=== PATIENT | female | born 1965 | race Caucasian/White ===

== ENCOUNTER 2022-10-29 09:17 | Outpatient (OUT) | payer OTHER, SELFPAY ==
--- NOTE | 2022-10-29 09:26 | MM_ITS ---
Patient: ROBERTO YAN Exam Date: 10/29/2022 : 1965 Gender:F Ordering : Non-Staff Physician Admission #: [id number] Family : GIO SimonIban FIONA Order #: [id number] CLICK HERE TO VIEW EXAM RADIOLOGY REPORT PROCEDURE: MM TOMOSYNTHESIS SCREENING BI COMPARISON: MG MAMM SCREEN 3D OFE CAD, 10/25/2020. MG MAMM SCREEN 3D OFE CAD, 10/28/2021. INDICATIONS: SCREENING MAMMOGRAM Calculator Name NCI Breast Cancer Risk Assessment Tool 5 Year Breast Cancer Risk 1.40% Lifetime Breast Cancer Risk 7.80% Personal Breast Cancer No Personal Ovarian Cancer No Treatments None Family Cancers Mother with ovarian cancer at age 58; Grandmother-maternal with ovarian cancer at age ~48; Aunt-maternal with ovarian cancer at age ~50. LOCATION: [facility] BREAST COMPOSITION: Heterogeneously dense,which may obscure small masses. FINDINGS: DIAGNOSTIC CATEGORY 0--INCOMPLETE: NEED ADDITIONAL IMAGING EVALUATION. The breasts are stable in size and overall fibroglandular configuration. Scattered benign-appearing lymph nodes are present. Scattered benign-appearing calcifications are present. RIGHT BREAST: New 1.3 x 1.1 cm irregular focal asymmetry upper-outer quadrant mid to posterior breast. Spot imaging and ultrasound follow-up is required LEFT BREAST: No significant suspicious finding. RECOMMENDATIONS: ADDITIONAL MAMMOGRAPHIC VIEWS REQUIRED: RIGHT BREAST - spot compression ULTRASOUND: RIGHT BREAST PLEASE NOTE: A NORMAL MAMMOGRAM DOES NOT EXCLUDE THE POSSIBILITY OF BREAST CANCER. A CLINICALLY SUSPICIOUS PALPABLE LUMP SHOULD BE BIOPSIED. Dictated by: Roel Araujo MD on 10/29/2022 at 12:38 Approved by: Roel Araujo MD on 10/29/2022 at 12:41
== END 2022-10-29 09:18 | disposition home or self-care (01) ==
LOC: MAMMO 09:20
PROVIDERS: PCP Internal Medicine
DX: Z12.31 Encounter for screening mammogram for malignant neoplasm of breast (principal); Z80.41 Family history of malignant neoplasm of ovary; R92.8 Other abnormal and inconclusive findings on diagnostic imaging of breast
CPT/HCPCS: 77063; 77067

== ENCOUNTER 2022-11-05 09:06 | Outpatient (OUT) | payer OTHER, SELFPAY ==
--- NOTE | 2022-11-05 09:13 | US_ITS ---
Patient: ROBERTO YAN Exam Date: 11/05/2022 : 1965 Gender:F Ordering : NON-STAFF PHYSICIAN Admission #: [id number] Family : MIKAYLA CARVAJAL Order #: [id number] CLICK HERE TO VIEW EXAM RADIOLOGY REPORT PROCEDURE: MM DIAGNOSTIC MAMMO UNILAT RT, 11/05/2022, 09:01 US BREAST RT LIMITED, 11/05/2022, 09:44 COMPARISON: MM TOMOSYNTHESIS SCREENING BI, 10/29/2022. MG MAMM SCREEN 3D OFE CAD, 10/28/2021. MG MAMM SCREEN 3D OFE CAD, 10/25/2020. MG MAMM SCREEN OFE W CAD, 10/20/2019. INDICATIONS: Abnormal Mammogram R92.8 Calculator Name NCI Breast Cancer Risk Assessment Tool 5 Year Breast Cancer Risk 1.40% Lifetime Breast Cancer Risk 7.80% Personal Breast Cancer No Personal Ovarian Cancer No Treatments None Family Cancers Mother with ovarian cancer at age 58; Grandmother-maternal with ovarian cancer at age ~48; Aunt-maternal with ovarian cancer at age ~50. LOCATION: [facility] BREAST COMPOSITION: Heterogeneously dense,which may obscure small masses. FINDINGS: DIAGNOSTIC CATEGORY 3--PROBABLY BENIGN FINDING. THE FOLLOWING FINDING(S) HAS A HIGH PROBABILITY OF A BENIGN ETIOLOGY: RIGHT BREAST: Spot magnification views demonstrate persistence small nodules within posterior upper-outer quadrant. Ultrasound evaluation demonstrates small benign-appearing cysts. Follow-up diagnostic mammography and ultrasound of right breast in 6 months is recommended to document stability. RECOMMENDATIONS: SHORT TERM FOLLOW-UP DIAGNOSTIC MAMMOGRAM RIGHT BREAST IN 6 MONTHS. SHORT TERM FOLLOW-UP ULTRASOUND RIGHT BREAST IN 6 MONTHS. PLEASE NOTE: A NORMAL MAMMOGRAM DOES NOT EXCLUDE THE POSSIBILITY OF BREAST CANCER. A CLINICALLY SUSPICIOUS PALPABLE LUMP SHOULD BE BIOPSIED. Dictated by: Narendra Bautista M.D. on 11/06/2022 at 12:48 Approved by: Narendra Bautista M.D. on 11/06/2022 at 12:51
--- NOTE | 2022-11-05 09:49 | MM_ITS ---
Patient: ROBERTO YAN Exam Date: 11/05/2022 : 1965 Gender:F Ordering : NON-STAFF PHYSICIAN Admission #: [id number] Family : MIKAYLA CARVAJAL Order #: [id number] CLICK HERE TO VIEW EXAM RADIOLOGY REPORT PROCEDURE: MM DIAGNOSTIC MAMMO UNILAT RT, 11/05/2022, 09:01 US BREAST RT LIMITED, 11/05/2022, 09:44 COMPARISON: MM TOMOSYNTHESIS SCREENING BI, 10/29/2022. MG MAMM SCREEN 3D OFE CAD, 10/28/2021. MG MAMM SCREEN 3D OFE CAD, 10/25/2020. MG MAMM SCREEN OFE W CAD, 10/20/2019. INDICATIONS: Abnormal Mammogram R92.8 Calculator Name NCI Breast Cancer Risk Assessment Tool 5 Year Breast Cancer Risk 1.40% Lifetime Breast Cancer Risk 7.80% Personal Breast Cancer No Personal Ovarian Cancer No Treatments None Family Cancers Mother with ovarian cancer at age 58; Grandmother-maternal with ovarian cancer at age ~48; Aunt-maternal with ovarian cancer at age ~50. LOCATION: [facility] BREAST COMPOSITION: Heterogeneously dense,which may obscure small masses. FINDINGS: DIAGNOSTIC CATEGORY 3--PROBABLY BENIGN FINDING. THE FOLLOWING FINDING(S) HAS A HIGH PROBABILITY OF A BENIGN ETIOLOGY: RIGHT BREAST: Spot magnification views demonstrate persistence small nodules within posterior upper-outer quadrant. Ultrasound evaluation demonstrates small benign-appearing cysts. Follow-up diagnostic mammography and ultrasound of right breast in 6 months is recommended to document stability. RECOMMENDATIONS: SHORT TERM FOLLOW-UP DIAGNOSTIC MAMMOGRAM RIGHT BREAST IN 6 MONTHS. SHORT TERM FOLLOW-UP ULTRASOUND RIGHT BREAST IN 6 MONTHS. PLEASE NOTE: A NORMAL MAMMOGRAM DOES NOT EXCLUDE THE POSSIBILITY OF BREAST CANCER. A CLINICALLY SUSPICIOUS PALPABLE LUMP SHOULD BE BIOPSIED. Dictated by: Narendra Bautista M.D. on 11/06/2022 at 12:48 Approved by: Narendra Bautista M.D. on 11/06/2022 at 12:51
== END 2022-11-05 09:07 | disposition home or self-care (01) ==
LOC: MAMMO 09:07
PROVIDERS: PCP Internal Medicine
DX: R92.8 Other abnormal and inconclusive findings on diagnostic imaging of breast (principal); N60.11 Diffuse cystic mastopathy of right breast
CPT/HCPCS: 76642; 77065

== ENCOUNTER 2023-06-09 09:16 | Outpatient (OUT) | payer OTHER, SELFPAY ==
[2023-06-09 10:41] LABS: Estimated Average Glucose 140 mg/dL; Glycohemoglobin A1C 6.5 % (4.5-6.2)
[2023-06-09 11:03] LABS: Chol HDL Ratio 3.6; Cholesterol 164 mg/dL (<=200); HDL Cholesterol 46 mg/dL (40-60); Triglycerides 157 mg/dL (<=150); VLDL CHOLESTEROL 31.4 mg/dL
== END 2023-06-09 09:17 | disposition home or self-care (01) ==
LOC: LAB 09:18
PROVIDERS: PCP Internal Medicine; Visit Provider Internal Medicine
DX: Z00.00 Encounter for general adult medical examination without abnormal findings (principal)
CPT/HCPCS: 36415; 80061; 83036

== ENCOUNTER 2023-10-26 10:18 | Outpatient (OUT) | payer OTHER, SELFPAY ==
--- NOTE | 2023-10-26 | MM_ITS ---
Patient Name: ROBERTO YAN MR#: [id number] : 1965 Exam Date: 10/26/2023 Ordering Doctor: DR GIO JAIMES RADIOLOGY REPORT PROCEDURE: MM TOMOSYNTHESIS SCREENING BI COMPARISON: MM DIAGNOSTIC MAMMO UNILAT RT, 11/05/2022. MM TOMOSYNTHESIS SCREENING BI, 10/29/2022. INDICATIONS: Screening for malignant neoplasm of breast Z12.31 Calculator Name NCI Breast Cancer Risk Assessment Tool 5 Year Breast Cancer Risk 1.40% Lifetime Breast Cancer Risk 7.60% Personal Breast Cancer No Personal Ovarian Cancer No Treatments None Family Cancers Mother with ovarian cancer at age 58; Grandmother-maternal with ovarian cancer at age ~48; Aunt-maternal with ovarian cancer at age ~50. LOCATION: [facility] BREAST COMPOSITION: The breasts are heterogeneously dense,which may obscure small masses. FINDINGS: DIAGNOSTIC CATEGORY 2--BENIGN FINDING. NO CHANGE FROM COMPARISON. Scattered benign-appearing nodules are present. Scattered benign-appearing calcifications are present. Scattered benign-appearing lymph nodes are present. RIGHT BREAST: No significant suspicious finding. LEFT BREAST: No significant suspicious finding. RECOMMENDATIONS: ROUTINE MAMMOGRAM AND CLINICAL EVALUATION IN 12 MONTHS. PLEASE NOTE: A NORMAL MAMMOGRAM DOES NOT EXCLUDE THE POSSIBILITY OF BREAST CANCER. A CLINICALLY SUSPICIOUS PALPABLE LUMP SHOULD BE BIOPSIED. Dictated by: Roel Araujo MD on 10/26/2023 at 11:42 Approved by: Roel Araujo MD on 10/26/2023 at 11:43
== END 2023-10-26 10:19 | disposition home or self-care (01) ==
LOC: MAMMO 10:18
PROVIDERS: PCP Internal Medicine; Visit Provider Internal Medicine
DX: Z12.31 Encounter for screening mammogram for malignant neoplasm of breast (principal); Z80.41 Family history of malignant neoplasm of ovary
CPT/HCPCS: 77063; 77067

== ENCOUNTER 2023-10-27 09:58 | Outpatient (RCR) | payer OTHER, SELFPAY ==
[2023-10-27 11:01] LABS: Basophils Absolute Auto 0.1 10^3/uL (0.0-0.1); Basophils Percent Auto 1.1 % (0.2-2.0); Eosinophils Absolute Auto 0.2 10^3/uL (0.0-0.7); Eosinophils Percent Auto 2.4 % (0.9-7.0); Hemoglobin 13.5 g/dL (12.0-16.0); Immature Granulocytes Abs Auto 0.01 10^3/uL (0.00-0.03); Immature Granulocytes Pct Auto 0.1 % (0.0-0.5); Lymphocytes Absolute Auto 2.5 10^3/uL (1.2-3.8); Lymphocytes Percent Auto 35.7 % (20.5-60.0); Mean Corpuscular HGB Conc 32.1 g/dL (29.9-35.2); Mean Corpuscular Hemoglobin 29.6 pg (26.7-34.0); Mean Corpuscular Volume 92.1 fL (81.0-99.0); Mean Platelet Volume 10.1 fL (9.5-13.5); Monocytes Absolute Auto 0.5 10^3/uL (0.3-0.8); Monocytes Percent Auto 6.4 % (1.7-12.0); Neutrophils Absolute Auto 3.8 10^3/uL (1.4-6.5); Neutrophils Percent Auto 54.3 % (43.0-75.0); Platelet Count 232 10^3/uL (150-450); Red Blood Count 4.56 10^6/uL (4.20-5.40); Red Cell Distribution Width 12.9 % (11.0-15.0); White Blood Count 7.1 10^3/uL (4.0-11.0)
[2023-10-27 11:22] LABS: Alanine Aminotransferase 37 U/L (14-59); Albumin Globulin Ratio 0.7; Albumin Level 3.7 g/dL (3.4-5.0); Alkaline Phosphatase 73 U/L (46-116); Anion Gap 13.4; Aspartate Amino Transferase 23 U/L (15-37); BUN Creatinine Ratio 14.1; Bilirubin Total 0.5 mg/dL (0.2-1.0); Calcium 8.9 mg/dL (8.5-10.1); Carbon Dioxide 29.5 mmol/L (21.0-32.0); Chloride 99 mmol/L (98-107); Estimated GFR (African America >60 (>=60); Estimated GFR (Non-African Ame >60 (>=60); Globulin 5.2 g/dL; Glucose 120 mg/dL (74-106); Lactate Dehydrogenase 164 U/L (81-234); Potassium 3.9 mmol/L (3.5-5.1); Sodium 138 mmol/L (136-145); Total Protein 8.9 g/dL (6.4-8.2)
[2023-10-28 16:10] LABS: Albumin 3.8 g/dL (2.9-4.4); Alpha-1-Globulin 0.3 g/dL (0.0-0.4); Alpha-2-Globulin 0.9 g/dL (0.4-1.0); Free Kappa Lt Chains,S 10.7 mg/L (3.3-19.4); Free Lambda Lt Chains,S 6.6 mg/L (5.7-26.3); Gamma Globulin 2.3 g/dL (0.4-1.8); Immunoglobulin A, Qn, Serum 59 mg/dL (87-352); Immunoglobulin G, Qn, Serum 2515 mg/dL (586-1602); Immunoglobulin M, Qn, Serum 28 mg/dL (26-217); Kappa/Lambda Ratio,S 1.62 (0.26-1.65); Protein, Total 8.3 g/dL (6.0-8.5)
[2023-10-30 15:10] LABS: Immunoglobulin E, Total 37 IU/mL (6-495)
== END 2023-10-28 10:21 | disposition home or self-care (01) ==
LOC: HEMC 09:58
PROVIDERS: PCP Internal Medicine; Visit Provider Internal Medicine Hematology & Oncology
DX: C90.00 Multiple myeloma not having achieved remission (principal)
CPT/HCPCS: 36415; 80053; 82784; 82785; 83521; 83615; 84155; 84165; 85025; G0463

== ENCOUNTER 2024-02-29 08:18 | Outpatient (OUT) | payer OTHER, SELFPAY ==
--- OUTSIDE RECORDS SUMMARY | 2024-02-29 08:24 | XMS_ITS | CCD ---
Author Organization [facility] Care Team Providers Care Supervisor Road Administrator Name Role Phone Gio Jaimes Primary Care Provider Dylan BURCH, Dylan Unavailable Ruben AUTOMATION TEST ENGINEER.PAULIE, Courtney Unavailable Bello LOCKWOOD, Bertha Unavailable HIESTAND, DR GIO Simon Consulting Unavailable BENITO, DR GIO Quiroz Admitting Unavailable BENITO, DR GIO Quiroz Attending Unavailable WESKAN, DR LESLYE Calvert Consulting Unavailable HIESTAND, DR GIO Simon Admitting Unavailable HIESTAND, DR GIO Simon Primary Care Unavailable HIESTAND, DR GIO Simon Attending Unavailable HIESTAND, DR GIO Simon Consulting Unavailable Gio Jaimes Primary Care Provider Dylan BURCH, Dylan Unavailable [phone] Ruben AUTOMATION TEST ENGINEER.FIRE INVESTIGATION MANAGER, Courtney Unavailable Bello LOCKWOOD, Bertha Unavailable Gio Jaimes Primary Care Provider Gio Jaimes MD Primary Care Provider GIO JAIMES Attending Unavailable GIO JAIMES Referring Unavailable GIO JAIMES Primary Care Unavailable DYLAN GATES Referring Unavailable GIO JAIMES Primary Care UnavailDYLAN Marsh Referring Unavailable DARIOESTGENET, GIO ROSALES Primary Care UnavailDYLAN Marsh Attending Unavailable GIO JAIMES Primary Care Unavailabl e HIESTGENET, GIO ROSALES Primary Care Unavailabl e DYLAN GATES Referring Unavailable DARIOESTGENET, GIO ROSALES Primary Care Unavailabl e DYLAN GATES Attending Unavailable AUDREY CARDENAS Attending Unavailable HIESTAND, GIO Referring Unavailable GIO JAIMES Primary Care Unavailable Medications Current Medications Medication Drug Class(es) Dates Sig (Normalized) Sig (Original) amLODIPine 2.5 mg oral tablet (4 sources) Dihydropyridine Calcium Channel Jamel Start: 06-05-2023 End: 08-04-2023 take 1 tablet by mouth in the morning amLODIPine (NORVASC) 2.5 mg tablet Indications: Primary hypertension Take 1 tablet (2.5 mg total) by mouth in the morning. 90 tablet 2 08/04/2023 Active Start: 05-01-2023 take 1 tablet by nicholas th in the morning amLODIPine (NORVASC) 2.5 mg tablet Indications: Primary hypertension Take 1 tablet (2.5 mg total) by mouth in the morning. 30 tablet 1 05/01/2023 Active Start: 04-06-2023 End: 05-01-2023 take 1 tablet by mouth in the morning amLODIPine (NORVASC) 2.5 mg tablet Indications: Primary hypertension Take 1 tablet (2.5 mg total) by mouth in the morning. 30 tablet 0 04/06/2023 05/01/2023 Discontinued (Reorder) b complex vitamins capsule (2 sources) take 1 capsule by mouth in the morning b complex vitamins capsule Take 1 capsule by mouth in the morning. 0 Active Doxylamine (1 source) doxylamine succi luis (UNISOM, DOXYLAMINE, ORAL) Take by mouth. 0 Active losartan potassium 50 mg oral tablet (7 sources) Angiotensin 2 Receptor Jamel Start: 4 End: 4 take 1 tablet by mouth in the morning losartan (COZAAR) 50 mg tablet Indications: Primary hypertension Take 1 tablet (50 mg total) by mouth in the morning. 90 tablet 2 08/04/2023 Active Start: 05-01-2023 take 1 tablet by nicholas th in the morning losartan (COZAAR) 50 mg tablet Indications: Primary hypertension Take 1 tablet (50 mg total) by mouth in the morning. 30 tablet 1 05/01/2023 Active Start: 10-14-2022 End: 05-01-2023 take 1 tablet by mouth in the morning losartan (COZAAR) 50 mg tablet TAKE 1 TABLET BY MOUTH IN THE MORNING and ONE TABLET BEFORE bedtime 0 10/14/2022 Active Comment on above: TAKE 1 TABLET BY NICHOLAS TH IN THE MORNING and ONE TABLET BEFORE bedtime olopatadine 1 mg/ml ophthalmic solution (2 sources) Histamine-1 Receptor Inhibitor Start: 07-31-19 22 take 1 drop(s) into the eye(s) in the morning olopatadine (PATANOL) 0.1 % ophthalmic solution Indications: Allergic conjunctivitis of both eyes Administer 1 drop to both eyes in the morning and 1 drop before bedtime. 5 mL 1 07/30/2021 Active omega-3 fatty acids-fish oil 300-1,000 mg capsule (2 sources) take 2 capsules by mouth in the morning omega-3 fatty acids-fish oil 300-1,000 mg capsule Take 2 capsules (2 g total) by mouth in the morning. 0 Active pantoprazole 40 mg delayed release oral tablet (1 source) Proton Pump Inhibitor Start: 02-21-20 23 take 1 tablet by mouth in the morning pantoprazole (PROTONIX) 40 mg EC tablet Indications: Gastroesophageal reflux disease without esophagitis Take 1 tablet (40 mg total) by mouth in the morning. 30 tablet 1 02/20/2023 Active psyllium 3400 mg powder for oral suspension (2 sources) take 1 dose by mouth three times daily in the morning psyllium (METAMUCIL) powder Take 1 packet by mouth 3 (three) times a day. Takes every morning 0 Active simvastatin 40 mg oral tablet (8 sources) HMG-CoA Reductase Inhibitor Start: 08-19-19 17 take 1 tablet by mouth once daily simvastatin (ZOCOR) 40 mg tablet TAKE 1 TABLET BY MOUTH NIGHTLY 90 tablet 3 04/21/2023 Active Comment on above: Take 40 mg by mouth daily at bedtime. Completed/Discontinued Medications Medication Drug Class(es) Dates Sig (Normalized) Sig (Original) ascorbic acid 500 mg oral tablet (8 sources) Vitamin C take 2 tablets by mo ut once daily ascorbic acid, vitamin C, (VITAMIN C) 500 mg tablet Take 1,000 mg by mouth once daily. 0 Active take 1 tablet by mouth in the mo rning ascorbic acid, vitamin C, (VITAMIN C) 1000 mg tablet Take 1 tablet (1,000 mg total) by mouth in the morning. 0 Active Comment on above: Take 1,000 mg by nicholas th once daily. calcium carbonate 1250 mg / cholecalciferol 600 unt chewable tablet (8 sources) Vitamin D Start: 10-23-19 12 take 1 tablet by mouth twice daily Calcium Carbonate-Vitamin D3 (OSCAL 500+D) 500 mg(1,250mg) -600 unit chew Indications: Monoclonal paraproteinemia Take 1 tablet by mouth twice daily. 0 10/23/2011 Active take 1 tablet by nicholas th once in the morning calcium carbonate-vitamin D3 (OSCAL 500 + D) 500 mg(1,250mg) -200 units per tablet Take 1 tablet by mouth in the morning and 1 tablet in the evening. Take with meals. 0 Active Comment on above: Take 1 tablet by nicholas th twice daily. COENZYME [id number] ORAL (6 sources) take 2000 mg by mouth once daily COENZYME [id number] ORAL Indications: Monoclonal paraproteinemia Take 2,000 mg by mouth once daily. 0 Active Comment on above: Take 2,000 mg by nicholas th once daily. MULTI-VITAMIN ORAL (6 sources) take 1 tablet by mouth once daily MULTI-VITAMIN ORAL Take 1 tablet by mouth once daily. 0 Active Comment on above: Take 1 tablet by nicholas th once daily. Cheshire-3 Fatty Acids-Vitamin E (FISH OIL) 1,000 mg cap (3 sources) take 1 capsule by mouth once daily Cheshire-3 Fatty Acids-Vitamin E (FISH OIL) 1,000 mg cap Indications: Monoclonal paraproteinemia Take 1 capsule by mouth once daily. 0 Active Comment on above: Take 1 capsule by mo uth once daily. Cheshire-3 Fatty Acids-Vitamin E 1,000 mg cap (3 sources) take 1 capsule by mouth once daily Cheshire-3 Fatty Acids-Vitamin E 1,000 mg cap Indications: Monoclonal paraproteinemia Take 1 capsule by mouth once daily. 0 Active Comment on above: Take 1 capsule by mo uth once daily. vitamin b12 1 mg oral tablet (6 sources) Vitamin B12 take 1 tablet by mouth once daily cyanocobalamin (VITAMIN B-12) 1,000 mcg tab Take 1,000 mcg by mouth once daily. 0 Active Comment on above: Take 1,000 mcg by mo uth once daily. Problems Active Problems Problem Classification Problem Date Documented Date Episodic/Chronic Disorders of lipid metabolism (6 sources) Pure hypercholesterolemia, unspecified; Translations: [Hypercholesterolemia ] Onset: 08-03-2021 Chronic Essential hypertension (3 sources) Essential hypertension; Translations: [Essential (primary) hypertension] Onset: 06-05-2023 05-01-2023 Chronic Multiple myeloma (8 sources) Multiple myeloma; Translations: [Multiple myeloma not having achieved remission] Onset: 11-02-2019 Chronic Neoplasms of unspecified nature or uncertain behavior (13 sources) Immunosecretory disorder; Translations: [Monoclonal gammopathy] Onset: 05-23-2010 05-23-2010 Chronic Other screening for suspected conditions (not mental disorders or infectious disease) (5 sources) Encounter for screening mammogram for malignant neoplasm of breast; Translations: [ENC SCR MAMMO MALIG NEOPLASM BREAST] Onset: 10-28-2021 Episodic Other upper respiratory disease (2 sources) Allergic disposition; Translations: [Other allergic rhinitis] Onset: 12-14-2022 12-14-2022 Chronic Residual codes; unclassified (1 source) Family history of malignant neoplasm of ovary; Translations: [FAM HX MALIGNANT NEOPLASM OVARY] Onset: 10-31-2021 Episodic Unclassified (1 source) Annual Exam Onset: 06-05-2023 Past or Other Problems Problem Classification Problem Date Documented Da te Episodic/Chronic Mood disorders (2 sources) Mood disorders Onset: 05-29-2022 05-29-2022 Residual codes; unclassified (6 sources) Pain; Translations: [Pain, unspecified] Onset: 03-03-2012 03-03-2012 Episodic Results Test Name Value Interpretation Reference Range Facility [facility] 08-19-2023 [facility]phone ([facility]) ROBERTO RICHTER ([id number]) 1965 F Date Time Provider Department 08/19/23 DYLAN GATES During your visit today, we recorded the following information about you: Vannessa Reis 08/19/2023 2:23 PM Signed Patient called requesting we fax her records to new doctor due to change in insurance. Records faxed to Dr. Low [phone]. Allergies As of Date: 08/19/2023 (No Known Allergies) Date Reviewed: 10/17/2022 Reviewed by: Nuris Palafox MA - Fully Assessed Reason for Visit: Records faxed [Other] Prescriptions as of 08/19/2023 - losartan (COZAAR) 50 mg tablet TAKE 1 TABLET BY MOUTH IN THE MORNING and ONE TABLET BEFORE bedtime - simvastatin (ZOCOR) 40 mg tablet Take 40 mg by mouth daily at bedtime. - Calcium Carbonate-Vitamin D3 (OSCAL 500+D) 500 mg(1,250mg) -600 unit chew Take 1 tablet by mouth twice daily. - COENZYME [id number]-I-[id number] ORAL Take 2,000 mg by mouth once daily. - Cheshire-3 Fatty Acids-Vitamin E 1,000 mg cap Take 1 capsule by mouth once daily. - ascorbic acid, vitamin C, (VITAMIN C) 500 mg tablet Take 1,000 mg by mouth once daily. - MULTI-VITAMIN ORAL Take 1 tablet by mouth once daily. - cyanocobalamin (VITAMIN B-12) 1,000 mcg tab Take 1,000 mcg by mouth once daily. Problem List As Of Date 08/19/2023 Noted Resolved Monoclonal paraproteinemia [D47.2] 05/23/2010 Pain [R52] 03/03/2012 Multiple myeloma (HCC) [C90.00] 11/02/2019 Encounter Status:Closed by VANNESSA REIS on 08/19/23 Normal [facility] B2 Microglob SerPl-ceasaron Ceui-6-Cvhilotilxvru [Mass/Vol] 1.7 ug/mL Normal 0.8-2.4 [facility] Comment on above: Order Comment: Speci men Type: BLOOD SPECIMEN Ordering Facility: [facility] Address: [address] [place] [address] Result Comment: Beta -2 Microglobulin test is performed using the [employer] immunoturbidimetric method. Results obtained with different methods or kits cannot be used interchangeably. Performed By: #### 1 952-1, 2885-2 #### [facility] CLIA [id number] [address] [facility] [id number], [place] [address] [place] CBC W Auto Differential pane l (Bld)on 04-03-2023 Basophils (Bld) [#/Vol] 0.07 10*3/uL Normal <0.11 [facility] Comment on above: Order Comment: Speci men Type: BLOOD SPECIMEN Ordering Facility: [facility] Address: [address] [place] [address] Performed By: #### 5 7021-8 #### [facility] CLIA [id number] [address] [place] [address] 37753 Basophils/100 WBC (Bld) 1.0 % Normal [facility] Comment on above: Order Comment: Speci men Type: BLOOD SPECIMEN Ordering Facility: [facility] Address: [address] [place] [address] Performed By: #### 5 7021-8 #### [facility] CLIA [id number] [address] [place] [address] 77131 Differential cell count method Nom (Bld) Auto Normal [facility] Comment on above: Order Comment: Speci men Type: BLOOD SPECIMEN Ordering Facility: [facility] Address: [address] [place] [address] Performed By: #### 5 7021-8 #### [facility] CLIA [id number] [address] [place] [address] 46191 Eosinophils (Bld) [#/Vol] 0.12 10*3/uL Normal <0.46 [facility] Comment on above: Order Comment: Speci men Type: BLOOD SPECIMEN Ordering Facility: [facility] Address: [address] [place] [address] Performed By: #### 5 7021-8 #### [facility] CLIA [id number] [address] [place] [address] 47915 Eosinophils/100 WBC (Bld) 1.8 % Normal [facility] Comment on above: Order Comment: Speci men Type: BLOOD SPECIMEN Ordering Facility: [facility] Address: [address] [place] [address] Performed By: #### 5 7021-8 #### [facility] CLIA [id number] [address] [place] [address]051 Erythrocyte distribution width (RBC) [Ratio] 13.2 % Normal 11.5-15.0 [facility] Comment on above: Order Comment: Speci men Type: BLOOD SPECIMEN Ordering Facility: [facility] Address: [address] [place] [address] Performed By: #### 5 7021-8 #### [facility] CLIA [id number] [address] [place] [address] 74091 Hematocrit (Bld) [Volume fraction] 42.9 % Normal 36.0-46.0 [facility] Comment on above: Order Comment: Speci men Type: BLOOD SPECIMEN Ordering Facility: [facility] Address: [address] [place] [address] Performed By: #### 5 7021-8 #### [facility] CLIA [id number] [address] [place] [address] 51993 Hemoglobin (Bld) [Mass/Vol] 13.8 g/dL Normal 11.5-15.5 [facility] Comment on above: Order Comment: Speci men Type: BLOOD SPECIMEN Ordering Facility: [facility] Address: [address] [place] [address] Performed By: #### 5 7021-8 #### [facility] CLIA [id number] [address] [place] [address] 82894 Immature granulocytes (Bld) [#/Vol] 10*3/uL Normal <0.10 [facility] Comment on above: Order Comment: Speci men Type: BLOOD SPECIMEN Ordering Facility: [facility] Address: [address] [place] [address] Performed By: #### 5 7021-8 #### [facility] CLIA [id number] [address] [place] [address] 60666 Immature granulocytes/100 WBC (Bld) 0.3 % Normal [facility] Comment on above: Order Comment: Speci men Type: BLOOD SPECIMEN Ordering Facility: [facility] Address: [address] [place] [address] Performed By: #### 5 7021-8 #### [facility] CLIA [id number] [address] [place] [address] 11278 Lymphocytes (Bld) [#/Vol] 2.18 10*3/uL Normal 1.00-4.00 [facility] Comment on above: Order Comment: Speci men Type: BLOOD SPECIMEN Ordering Facility: [facility] Address: [address] [place] [address] Performed By: #### 5 7021-8 #### [facility] CLIA [id number] [address] [place] [address] 44443 Lymphocytes/100 WBC (Bld) 31.9 % Normal [facility] Comment on above: Order Comment: Speci men Type: BLOOD SPECIMEN Ordering Facility: [facility] Address: [address] [place] [address] Performed By: #### 5 7021-8 #### [facility] CLIA [id number] [address] [place] [address] 90712 MCH (RBC) [Entitic mass] 30.8 pg Normal 26.0-34.0 [facility] Comment on above: Order Comment: Speci men Type: BLOOD SPECIMEN Ordering Facility: [facility] Address: [address] [place] [address] Performed By: #### 5 7021-8 #### [facility] CLIA [id number] [address] [place] [address] 92617 MCHC (RBC) [Mass/Vol] 32.2 g/dL Normal 30.5-36.0 [facility] Comment on above: Order Comment: Speci men Type: BLOOD SPECIMEN Ordering Facility: [facility] Address: [address] [place] [address] Performed By: #### 5 7021-8 #### [facility] CLIA [id number] [address] [place] [address] 14099 MCV (RBC) [Entitic vol] 95.8 fL Normal 80.0-100.0 [facility] Comment on above: Order Comment: Speci men Type: BLOOD SPECIMEN Ordering Facility: [facility] Address: [address] [place] [address] Performed By: #### 5 7021-8 #### [facility] CLIA [id number] [address] [place] [address] 95857 Monocytes (Bld) [#/Vol] 0.50 10*3/uL Normal <0.87 [facility] Comment on above: Order Comment: Speci men Type: BLOOD SPECIMEN Ordering Facility: [facility] Address: [address] [place] [address] Performed By: #### 5 7021-8 #### [facility] CLIA [id number] [address] [place] [address] 70521 Monocytes/100 WBC (Bld) 7.3 % Normal [facility] Comment on above: Order Comment: Speci men Type: BLOOD SPECIMEN Ordering Facility: [facility] Address: [address] [place] [address] Performed By: #### 5 7021-8 #### [facility] CLIA [id number] [address] [place] [address] 04421 Neutrophils (Bld) [#/Vol] 3.94 10*3/uL Normal 1.45-7.50 [facility] Comment on above: Order Comment: Speci men Type: BLOOD SPECIMEN Ordering Facility: [facility] Address: [address] [place] [address] Performed By: #### 5 7021-8 #### [facility] CLIA [id number] [address] [place] [address] 85355 Neutrophils/100 WBC (Bld) 57.7 % Normal [facility] Comment on above: Order Comment: Speci men Type: BLOOD SPECIMEN Ordering Facility: [facility] Address: [address] [place] [address] Performed By: #### 5 7021-8 #### [facility] CLIA [id number] [address] [place] [address] 43743 Nucleated RBC (Bld) [#/Vol] 10*3/uL Normal <0.01 [facility] Comment on above: Order Comment: Speci men Type: BLOOD SPECIMEN Ordering Facility: [facility] Address: [address] [place] [address] Performed By: #### 5 7021-8 #### [facility] CLIA [id number] [address] [place] [address] 18966 Nucleated RBC/100 WBC (Bld) [Ratio] 0.0 /100 WBC Normal [facility] Comment on above: Order Comment: Speci men Type: BLOOD SPECIMEN Ordering Facility: [facility] Address: [address] [place] [address] Performed By: #### 5 7021-8 #### [facility] CLIA [id number] [address] [place] [address] 31107 Platelet mean volume (Bld) [Entitic vol] 10.3 fL Normal 9.0-12.7 [facility] Comment on above: Order Comment: Speci men Type: BLOOD SPECIMEN Ordering Facility: [facility] Address: [address] [place] [address] Performed By: #### 5 7021-8 #### [facility] CLIA [id number] [address] [place] [address] 63943 Platelets (Bld) [#/Vol] 213 10*3/uL Normal 150-400 [facility] Comment on above: Order Comment: Speci men Type: BLOOD SPECIMEN Ordering Facility: [facility] Address: [address] [place] [address] Performed By: #### 5 7021-8 #### [facility] CLIA [id number] [address] [place] [address] 07328 RBC (Bld) [#/Vol] 4.48 10*6/uL Normal 3.90-5.20 [facility] Comment on above: Order Comment: Speci men Type: BLOOD SPECIMEN Ordering Facility: [facility] Address: [address] [place] [address] Performed By: #### 5 7021-8 #### [facility] CLIA [id number] [address] [place] [address] 00276 WBC (Bld) [#/Vol] 6.83 10*3/uL Normal 3.70-11.00 [facility] Comment on above: Order Comment: Speci men Type: BLOOD SPECIMEN Ordering Facility: [facility] Address: [address] [place] [address] Performed By: #### 5 7021-8 #### [facility] CLIA [id number] [address] [place] [address] 60058 Calcium.ionized [Moles/Vol]o n 04-03-2023 Calcium.ionized (Bld) [Mass/Vol] 1.19 mmol/L Normal 1.08-1.30 [facility] Comment on above: Order Comment: Speci men Type: BLOOD SPECIMEN Ordering Facility: [facility] Address: [address] [place] [address] Performed By: #### 1 995-0 #### [facility] CLIA [id number] [address] [place] [address] [place] Calcium.ionized adjusted to pH 7.4 (Bld) [Moles/Vol] 1.19 mmol/L Normal 1.08-1.30 [facility] Comment on above: Order Comment: Speci men Type: BLOOD SPECIMEN Ordering Facility: [facility] Address: [address] [place] [address] Performed By: #### 1 995-0 #### [facility] CLIA [id number] [address] [place] [address] [place] Comprehensive metabolic 2000 panelon 04-03-2023 Albumin [Mass/Vol] 4.5 g/dL Normal 3.9-4.9 [facility] Comment on above: Order Comment: Speci men Type: BLOOD SPECIMEN Ordering Facility: [facility] Address: [address] [place] [address] Performed By: #### K LFRS #### [facility] CLIA [id number] [address] [place] [id number] [place] ALP [Catalytic activity/Vol] 67 U/L Normal 34-123 [facility] Comment on above: Order Comment: Speci men Type: BLOOD SPECIMEN Ordering Facility: [facility] Address: [address] [place] [address] Performed By: #### K LFRS #### [facility] CLIA [id number] [address] [place] [address] [place] ALT [Catalytic activity/Vol] 24 U/L Normal 7-38 [facility] Comment on above: Order Comment: Speci men Type: BLOOD SPECIMEN Ordering Facility: [facility] Address: [address] [place] [address] Performed By: #### K LFRS #### [facility] CLIA [id number] [address] [place] [address] [place] Anion gap [Moles/Vol] 9 mmol/L Normal 9-18 [facility] Comment on above: Order Comment: Speci men Type: BLOOD SPECIMEN Ordering Facility: [facility] Address: [address] [place] [address] Performed By: #### K LFRS #### [facility] CLIA [id number] [address] [place] [address] [place] AST [Catalytic activity/Vol] 19 U/L Normal 13-35 [facility] Comment on above: Order Comment: Speci men Type: BLOOD SPECIMEN Ordering Facility: [facility] Address: [address] [place] [address] Performed By: #### K LFRS #### [facility] CLIA [id number] [address] [place] [address] [place] Bilirubin [Mass/Vol] 0.3 mg/dL Normal 0.2-1.3 [facility] Comment on above: Order Comment: Speci men Type: BLOOD SPECIMEN Ordering Facility: [facility] Address: [address] [place] [address] Performed By: #### K LFRS #### [facility] CLIA [id number] [address] [place] [address] [place] Calcium [Mass/Vol] 9.1 mg/dL Normal 8.5-10.2 [facility] Comment on above: Order Comment: Speci men Type: BLOOD SPECIMEN Ordering Facility: [facility] Address: [address] [place] [address] Performed By: #### K LFRS #### [facility] CLIA [id number] [address] [place] [address] [place] Chloride [Moles/Vol] 104 mmol/L Normal 97-105 [facility] Comment on above: Order Comment: Speci men Type: BLOOD SPECIMEN Ordering Facility: [facility] Address: [address] [place] [address] Performed By: #### K LFRS #### [facility] CLIA [id number] [address] [place] [address] [place] CO2 [Moles/Vol] 27 mmol/L Normal 22-30 [facility] Comment on above: Order Comment: Speci men Type: BLOOD SPECIMEN Ordering Facility: [facility] Address: [address] [place] [address] Performed By: #### K LFRS #### [facility] CLIA [id number] [address] [place] [address] [place] Creatinine [Mass/Vol] 0.77 mg/dL Normal 0.58-0.96 [facility] Comment on above: Order Comment: Speci men Type: BLOOD SPECIMEN Ordering Facility: [facility] Address: [address] [place] [address] Performed By: #### K LFRS #### [facility] CLIA [id number] [address] [place] [address] [place] Creatinine and Glomerular filtration rate.predicted panel (S/P/Bld) 89 mL/min/1.73m??? Normal >=60 [facility] Comment on above: Order Comment: Diana vences Type: BLOOD SPECIMEN Ordering Facility: [facility] Address: [address] [place] [address] Result Comment: Dorota mated Glomerular Filtration Rate (eGFR) is calculated using the 2020 CKD-EPI creatinine equation. This equation utilizes serum creatinine, sex, and age as parameters. The creatinine assay has traceable calibration to isotope dilution-mass spectrometry. Refer to KDIGO guidelines for clinical interpretation. In patients with unstable renal function, e.g. those with acute kidney injury, the eGFR may not accurately reflect actual GFR. Performed By: #### K LFRS #### [facility] CLIA [id number] [address] [place] [address] [place] Glucose [Mass/Vol] 108 mg/dL High 74-99 [facility] Comment on above: Order Comment: Diana vences Type: BLOOD SPECIMEN Ordering Facility: [facility] Address: [address] [place] [address] Result Comment: The [place] [employer] (ADA) provides guidance for cutoff values for fasting glucose and random glucose. The ADA defines fasting as no caloric intake for at least 8 hours. Fasting plasma glucose results between 100 to 125 mg/dL indicate increased risk for diabetes (prediabetes). Fasting plasma glucose results greater than or equal to 126 mg/dL meet the criteria for diagnosis of diabetes. In the absence of unequivocal hyperglycemia, results should be confirmed by repeat testing. In a patient with classic symptoms of hyperglycemia or hyperglycemic crisis, random plasma glucose results greater than or equal to 200 mg/dL meet the criteria for diagnosis of diabetes. Reference: Standards of Medical Care in Diabetes 2016, [place] [employer]. Diabetes Care. 2016.39(Suppl 1). Performed By: #### K LFRS #### [facility] CLIA [id number] [address] [place] [address] [place] Potassium [Moles/Vol] 4.4 mmol/L Normal 3.7-5.1 [facility] Comment on above: Order Comment: Diana vences Type: BLOOD SPECIMEN Ordering Facility: [facility] Address: [address] [place] [address] Performed By: #### K LFRS #### [facility] CLIA [id number] [address] [place] [address] [place] Protein [Mass/Vol] 8.5 g/dL High 6.3-8.0 [facility] Comment on above: Order Comment: Speci men Type: BLOOD SPECIMEN Ordering Facility: [facility] Address: [address] [place] [address] Performed By: #### K LFRS #### [facility] CLIA [id number] [address] [place] [address] [place] Sodium [Moles/Vol] 140 mmol/L Normal 136-144 [facility] Comment on above: Order Comment: Speci men Type: BLOOD SPECIMEN Ordering Facility: [facility] Address: [address] [place] [address] Performed By: #### K LFRS #### [facility] CLIA [id number] [address] [place] [address] [place] Urea nitrogen [Mass/Vol] 15 mg/dL Normal 7-21 [facility] Comment on above: Order Comment: Speci men Type: BLOOD SPECIMEN Ordering Facility: [facility] Address: [address] [place] [address] Performed By: #### K LFRS #### [facility] CLIA [id number] [address] [place] [address] [place] IMMUNOFIXATION SCREEN, SERUM on 04-03-2023 INTERPRETATION (MPA) Atypical restricted bands are present in the IgG and kappa regions. Consistent with IgG kappa monoclonal gammopathy. Normal [facility] Comment on above: Order Comment: Speci men Type: BLOOD SPECIMEN Ordering Facility: [facility] Address: [address] [place] [address] Performed By: #### 1 952-1, 2885-2 #### [facility] CLIA [id number] [facility] MPA RESULT M protein is present. Abnormal No M p rotein is identified. [facility] Comment on above: Order Comment: Speci men Type: BLOOD SPECIMEN Ordering Facility: [facility] Address: [address] [place] [address] Performed By: #### 1 952-1, 2885-2 #### [facility] CLIA [id number] [facility] [address] STAFF REVIEW (MPA) Reviewed by Aretha Pratt M.D., Ph.D Normal [facility] Comment on above: Order Comment: Speci men Type: BLOOD SPECIMEN Ordering Facility: [facility] Address: [address] [place] [address] Performed By: #### 1 952-1, 2885-2 #### [facility] CLIA [id number] [address] [place] [address] [place] IMMUNOGLOBULINS GAMon 2022 IgA [Mass/Vol] 57 mg/dL Low 70-400 [facility] Comment on above: Order Comment: Speci men Type: BLOOD SPECIMEN Ordering Facility: [facility] Address: [address] [place] [address] Performed By: #### S ERIMM #### [facility] CLIA [id number] [address] [place] [address] [place] IgG [Mass/Vol] 2350 mg/dL High 700-1600 [facility] Comment on above: Order Comment: Speci men Type: BLOOD SPECIMEN Ordering Facility: [facility] Address: [address] [place] [address] Performed By: #### S ERIMM #### [facility] CLIA [id number] [facility] [place] [address] [place] IgM [Mass/Vol] 26 mg/dL Low 40-230 [facility] Comment on above: Order Comment: Speci men Type: BLOOD SPECIMEN Ordering Facility: [facility] Address: [address] [place] [address] Performed By: #### S ERIMM #### [facility] CLIA [id number] [address] [place] [address] [place] KAPPA/DYER,FREE,SERon 2022 Immunoglobulin light chains.kappa.free (S) [Mass/Vol] 11.7 mg/L Normal 3.3-19.4 [facility] Comment on above: Order Comment: Speci men Type: BLOOD SPECIMEN Ordering Facility: [facility] Address: [address] [place] [address] Result Comment: Rare ly, increased serum free light chains levels may not be detected or accurately quantified due to prozone phenomenon or in high viscosity samples using this immunoturbidimetric assay. Correlation with other laboratory results and clinical findings is recommended. The [place] Free Light Chain was performed using the Binding Site [employer] immunoturbidimetric method. Result obtained with different assay methods or kits cannot be used interchangeably. Performed By: #### K LFRS #### [facility] CLIA [id number] [address] [place] [address] [place] Immunoglobulin light chains.kappa/Immunog lobulin light chains.lambda (S) [Mass ratio] 1.80 High 0.26-1.65 [facility] Comment on above: Order Comment: Speci men Type: BLOOD SPECIMEN Ordering Facility: [facility] Address: [address] [place] [address] Performed By: #### K LFRS #### [facility] CLIA [id number] [address] [place] [address] [place] Immunoglobulin light chains.lambda.free [Mass/Vol] 6.5 mg/L Normal 5.7-26.3 [facility] Comment on above: Order Comment: Speci men Type: BLOOD SPECIMEN Ordering Facility: [facility] Address: [address] [place] [address] Result Comment: Rare ly, increased serum free light chains levels may not be detected or accurately quantified due to prozone phenomenon or in high viscosity samples using this immunoturbidimetric assay. Correlation with other laboratory results and clinical findings is recommended. The [place] Free Light Chain was performed using the Binding Site Optilite immunoturbidimetric method. Result obtained with different assay methods or kits cannot be used interchangeably. Performed By: #### K LFRS #### [facility] CLIA [id number] [address] [place] [address] [place] LDH SerPl-cCncon 04-03-2023 LDH [Catalytic activity/Vol] 183 U/L Normal 135-214 [facility] Comment on above: Order Comment: Speci vangie Type: BLOOD SPECIMEN Ordering Facility: [facility] Address: [address] [place] [address] Result Comment: Hemo lysis present. The origin of the hemolysis, in vitro versus an in vivo hemolytic process, cannot be distinguished via this assay alone. In vitro hemolysis may lead to non-physiological (spurious) elevation in lactate dehydrogenase (LDH) results. The result should be interpreted in context of the clinical setting and other test results. Suggest reorder as clinically indicated. Performed By: #### K LFRS #### [facility] CLIA [id number] [address] [place] [address] [place] PROTEIN ELECTROPHORESIS SERU M (P)on 04-03-2023 Albumin [Mass/Vol] 4.11 g/dL Normal 3.43-5.41 [facility] Comment on above: Order Comment: Diana vences Type: BLOOD SPECIMEN Ordering Facility: [facility] Address: [address] [place] [address] Performed By: #### 1 952-1, 2885-2 #### [facility] CLIA [id number] [address] [place] [address] [place] Alpha 1 globulin Elph [Mass/Vol] 0.27 g/dL Normal 0.18-0.43 [facility] Comment on above: Order Comment: Diana vences Type: BLOOD SPECIMEN Ordering Facility: [facility] Address: [address] [place] [address] Performed By: #### 1 952-, 288-2 #### [facility] CLIA [id number] [address] [place] [address] [place] Alpha 2 globulin Elph [Mass/Vol] 0.62 g/dL Normal 0.42-0.98 [facility] Comment on above: Order Comment: Speci men Type: BLOOD SPECIMEN Ordering Facility: [facility] Address: [address] [place] [address] Performed By: #### 1 952-, 288- #### [facility] CLIA [id number] [address] [place] [address] [place] Beta globulin Elph [Mass/Vol] 0.74 g/dL Normal 0.61-1.17 [facility] Comment on above: Order Comment: Speci men Type: BLOOD SPECIMEN Ordering Facility: [facility] Address: [address] [place] [address] Performed By: #### 1 952-, 2884- #### [facility] CLIA [id number] [address] [place] [address] [place] Gamma globulin Elph [Mass/Vol] 2.37 g/dL High 0.53-1.51 [facility] Comment on above: Order Comment: Speci men Type: BLOOD SPECIMEN Ordering Facility: [facility] Address: [address] [place] [address] Performed By: #### 1 952-, 2884-2 #### [facility] CLIA [id number] [facility] [place] [address] [place] INTERPRETATION COMMENT FOR PROTEIN ELECTROPHORESIS See separate immunofixation report for characterization of monoclonal gammopathy. Normal [facility] Comment on above: Order Comment: Speci men Type: BLOOD SPECIMEN Ordering Facility: [facility] Address: [address] [place] [address] Performed By: #### 1 952-, 288-2 #### [facility] CLIA [id number] [address] [place] [address] [place] M-PROTEIN LOCATION Gamma Fraction 1 Normal [facility] Comment on above: Order Comment: Speci men Type: BLOOD SPECIMEN Ordering Facility: [facility] Address: [address] [place] [address] Performed By: #### 1 952-1, 2885-2 #### [facility] CLIA [id number] [address] [place] [address] [place] Protein Fractions [Interp] An M protein is identified on protein electrophoresis. Abnormal No definitive M protein is identified on protein electrophoresi s. [facility] Comment on above: Order Comment: Speci men Type: BLOOD SPECIMEN Ordering Facility: [facility] Address: [address] [place] [address] Performed By: #### 1 952-1, 2885-2 #### [facility] CLIA [id number] [address] [place] [address] [place] Protein.monoclonal Elph [Mass/Vol] 1.92 g/dL High <=0.00 [facility] Comment on above: Order Comment: Speci men Type: BLOOD SPECIMEN Ordering Facility: [facility] Address: [address] [place] [address] Performed By: #### 1 952-1, 2885-2 #### [facility] CLIA [id number] [address] [place] [address] [place] SPE STAFF REVIEW Reviewed by Aretha Pratt M.D., Ph.D Normal [facility] Comment on above: Order Comment: Speci men Type: BLOOD SPECIMEN Ordering Facility: [facility] Address: [address] [place] [address] Performed By: #### 1 952-1, 2885-2 #### [facility] CLIA [id number] [address] [place] [address] [place] Phosphate SerPl-mCncon 04-03 Phosphate [Mass/Vol] 3.6 mg/dL Normal 2.7-4.8 [facility] Comment on above: Order Comment: Speci men Type: BLOOD SPECIMEN Ordering Facility: [facility] Address: [address] [place] [address] Performed By: #### K LFRS #### [facility] CLIA [id number] [address] [place] [address] [place] Prot SerPl-mCncon 04-03-2023 Protein [Mass/Vol] 8.1 g/dL High 6.3-8.0 [facility] Comment on above: Order Comment: Speci men Type: BLOOD SPECIMEN Ordering Facility: [facility] Address: [address] [place] [address] Performed By: #### 1 952-1, 2885-2 #### [facility] CLIA [id number] [address] [place] [address] [place] [facility] [Mass/Vol] 5.6 mg/dL Normal 2.5-6.6 [facility] Comment on above: Order Comment: Speci men Type: BLOOD SPECIMEN Ordering Facility: [facility] Address: [address] [place] [address] Performed By: #### K LFRS #### [facility] CLIA [id number] [address] [place] [address] [place] CNOVSPon 10-17-2022 CNOVSP Visit (SP) Office ([place]) ROBERTO RICHTER ([id number]) 1965 F Date Time Provider Department 10/17/22 10:00 AM DYLAN GATES During your visit today, we recorded the following information about you: Temperature Pulse Respiration Blood pressure 97.6 degrees 79/minute 16/minute 152/75 Weight Height 93.5 kg 1.575 m Dylan Gates MD 10/24/2022 7:57 AM Signed NAME: Roberto Richter CLINIC NO.: [id number] DATE OF SERVICE: October 17, 2022 (Dylan) Some elements in this clinic note that are critical to medical decision making have been carefully reviewed and included from a prior clinic note dated: May 12, 2022 (Dylan) Referring Provider: Dr. Gio [place] Additional Clinicians involved in Roberto Richter's care: CC: Monoclonal gammopathy. Returns for Results of testing. 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 BM Bx 10 - 15% plasma cells. November 2019 New positive new lytic lesions noted on 02/2019 bone survey not able to be confirmed with PET/CT. We will continue active surveillance. K/L ratio: stable Current testing remains stable with no evidence of lytic lesions on most recent bone survey. 2. Family history of ovarian cancer Patient was seen by senior medical billing specialist . Underwent BRCA 1-2 mutation testing, large rearrangements and deletions testing- all negative. PLAN: Repeat labs in 6 months. Phone call 1 week after to review. HPI: Updated Visit, October 17, 2022: Doing ok. Myeloma continues to slowly progress. Still working on cutting back sugar. Right ankle hurts as she's trying to walk. Updated Visit, May 12, 2022: Telephone only for 5 minutes I called Roberto as requested and she is doing well - reviewed labs and has no significant changes. No new complaints. Updated Visit, September 20, 2021: Roberto Richter returns for follow-up. Her last couple of visits have been virtual/telephone visits to review labs. Overall, she has been doing well. She denies any unusual pain. She denies fevers, chills, night sweats and signs/symptoms of infection. She has hot flashes from menopause. She denies any palpable lumps or bumps. She will be retiring from [employer] in 11 days. She may need to adjust future appointments due to her insurance changing. Today she offers no particular complaints. No new issues, problems or concerns. Updated Visit, May 20, 2021: Telephone only for 5 minutes Overall doing very well. Planning a vacation in 07/2021. Labs reviewed and are stable. She reports being off of her diet and will get back on it. Updated Visit, February 18, 2021: Telephone only for 6 minutes Had a flu shot on 02/13/2021 and then did her labs for smoldering myeloma which have some increase in her light ratio / and M-spike. No other indicators of disease progression. She feels a little achy and sore but otherwise is doing well. 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 She is here with her Leslye. She was initially diagnosed with MGUS in 2012. This was followed conservatively, but looking back at her records when I inherited her care I saw that she was found to have a few bone lesions and therefore I obtained a bone marrow that showed 10 to 15% plasma cells. PET scan was negative for bone lesions. Therefore I have reobtained bone survey that is detailed below. There are no lytic findings noted. We will continue observation. Her myeloma protein and light chain assay and ratio are stable. Laboratories remained stable as well. She remains asymptomatic. 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 We elected to hold off on treatment because she had very stable disease in each she also had equivocal lesions on bone survey that were not identified on PET/CT. Her laboratories still remain stable and kappa to lambda light chain assay and ratio is normal. She remains largely asymptomatic and has successfully lost 30 pounds by changing her diet aggressively. Updated Visit, November 21, 2019: Conducted by telephone Roberto Richter is a 54 year old female seen for MGUS under workup for progressive disease to myeloma with lytic lesions noted on bone survey in 02/2019. Bone marrow showed progression to 10-15% plasma cells. PET scan was negative for bone lesions. I called her to discuss these findings and indicated that we needed more information in order to proceed with treatment. PET detailed below. Updated Visit, November 04, 2019: Roberto is 54 yo and is accopanied by her Leslye. We reviewed findings and she has progressed to myeloma, standard (more content not included)... Normal [facility] B2 Microglob SerPl-mCncon Nmpp-1-Vdcfjfufqssth [Mass/Vol] 1.4 ug/mL Normal 0.8-2.4 [facility] Comment on above: Order Comment: Speci men Type: BLOOD SPECIMEN Ordering Facility: [facility] Address: [address] [place] [address] Result Comment: Beta -2 Microglobulin test is performed using the [employer] immunoturbidimetric method. Results obtained with different methods or kits cannot be used interchangeably. Performed By: #### 1 952-1, 2885-2 #### [facility] CLIA [id number] [address] [facility] [id number] [place] [address] [place] CBC W Auto Differential pane l (Bld)on 10-10-2022 Basophils (Bld) [#/Vol] 0.06 10*3/uL Normal <0.11 [facility] Comment on above: Order Comment: Speci men Type: BLOOD SPECIMEN Ordering Facility: [facility] Address: [address] [place] [address] Performed By: #### 5 7021-8 #### [facility] CLIA [id number] [address] [place] [address] Basophils/100 WBC (Bld) 0.9 % Normal [facility] Comment on above: Order Comment: Speci men Type: BLOOD SPECIMEN Ordering Facility: [facility] Address: [address] [place] [address] Performed By: #### 5 7021-8 #### [facility] CLIA [id number] [address] [place] [address]23 Differential cell count method Nom (Bld) Auto Normal [facility] Comment on above: Order Comment: Speci men Type: BLOOD SPECIMEN Ordering Facility: [facility] Address: [address] [place] [address] Performed By: #### 5 7021-8 #### [facility] CLIA [id number] [address] [place] [address] Eosinophils (Bld) [#/Vol] 0.13 10*3/uL Normal <0.46 [facility] Comment on above: Order Comment: Speci men Type: BLOOD SPECIMEN Ordering Facility: [facility] Address: [address] [place] [address] Performed By: #### 5 7021-8 #### [facility] CLIA [id number] [address] [place] [address]78 Eosinophils/100 WBC (Bld) 1.8 % Normal [facility] Comment on above: Order Comment: Speci men Type: BLOOD SPECIMEN Ordering Facility: [facility] Address: [address] [place] [address] Performed By: #### 5 7021-8 #### [facility] CLIA [id number] [address] [place] [address] Erythrocyte distribution width (RBC) [Ratio] 13.5 % Normal 11.5-15.0 [facility] Comment on above: Order Comment: Speci men Type: BLOOD SPECIMEN Ordering Facility: [facility] Address: [address] [place] [address] Performed By: #### 5 7021-8 #### [facility] CLIA [id number] [address] [place] [address]2846 Hematocrit (Bld) [Volume fraction] 44.7 % Normal 36.0-46.0 [facility] Comment on above: Order Comment: Speci men Type: BLOOD SPECIMEN Ordering Facility: [facility] Address: [address] [place] [address] Performed By: #### 5 7021-8 #### [facility] CLIA [id number] [address] [place] [address] 34408 Hemoglobin (Bld) [Mass/Vol] 14.3 g/dL Normal 11.5-15.5 [facility] Comment on above: Order Comment: Speci men Type: BLOOD SPECIMEN Ordering Facility: [facility] Address: [address] [place] [address] Performed By: #### 5 7021-8 #### [facility] CLIA [id number] [address] [place] [address]56 Immature granulocytes (Bld) [#/Vol] 10*3/uL Normal <0.10 [facility] Comment on above: Order Comment: Speci men Type: BLOOD SPECIMEN Ordering Facility: [facility] Address: [address] [place] [address] Performed By: #### 5 7021-8 #### [facility] CLIA [id number] [address] [place] [address] 88482 Immature granulocytes/100 WBC (Bld) 0.1 % Normal [facility] Comment on above: Order Comment: Speci men Type: BLOOD SPECIMEN Ordering Facility: [facility] Address: [address] [place] [address] Performed By: #### 5 7021-8 #### [facility] CLIA [id number] [address] [place] [address]808 Lymphocytes (Bld) [#/Vol] 2.25 10*3/uL Normal 1.00-4.00 [facility] Comment on above: Order Comment: Speci men Type: BLOOD SPECIMEN Ordering Facility: [facility] Address: [address] [place] [address] Performed By: #### 5 7021-8 #### [facility] CLIA [id number] [address] [place] [address] 09478 Lymphocytes/100 WBC (Bld) 32.0 % Normal [facility] Comment on above: Order Comment: Speci men Type: BLOOD SPECIMEN Ordering Facility: [facility] Address: [address] [place] [address] Performed By: #### 5 7021-8 #### [facility] CLIA [id number] [address] [place] [address] 35197 MCH (RBC) [Entitic mass] 30.2 pg Normal 26.0-34.0 [facility] Comment on above: Order Comment: Speci men Type: BLOOD SPECIMEN Ordering Facility: [facility] Address: [address] [place] [place] [address] Performed By: #### 5 7021-8 #### [facility] CLIA [id number] [address] [place] [address] 78964 MCHC (RBC) [Mass/Vol] 32.0 g/dL Normal 30.5-36.0 [facility] Comment on above: Order Comment: Speci men Type: BLOOD SPECIMEN Ordering Facility: [facility] Address: [address] [place] [address] Performed By: #### 5 7021-8 #### [facility] CLIA [id number] [address] [place] [address] 48955 MCV (RBC) [Entitic vol] 94.3 fL Normal 80.0-100.0 [facility] Comment on above: Order Comment: Speci men Type: BLOOD SPECIMEN Ordering Facility: [facility] Address: [address] [place] [address] Performed By: #### 5 7021-8 #### [facility] CLIA [id number] [address] [place] [address] 74286 Monocytes (Bld) [#/Vol] 0.52 10*3/uL Normal <0.87 [facility] Comment on above: Order Comment: Speci men Type: BLOOD SPECIMEN Ordering Facility: [facility] Address: [address] [place] [place] [address] Performed By: #### 5 7021-8 #### [facility] CLIA [id number] [address] [place] [address] 16060 Monocytes/100 WBC (Bld) 7.4 % Normal [facility] Comment on above: Order Comment: Speci men Type: BLOOD SPECIMEN Ordering Facility: [facility] Address: [address] [place] [place] [address] Performed By: #### 5 7021-8 #### [facility] CLIA [id number] [address] [place] [address] Neutrophils (Bld) [#/Vol] 4.06 10*3/uL Normal 1.45-7.50 [facility] Comment on above: Order Comment: Speci men Type: BLOOD SPECIMEN Ordering Facility: [facility] Address: [address] [address] Performed By: #### 5 7021-8 #### [facility] CLIA [id number] [address] [place] [address] Neutrophils/100 WBC (Bld) 57.8 % Normal [facility] Comment on above: Order Comment: Speci men Type: BLOOD SPECIMEN Ordering Facility: [facility] Address: [address] [place] [address] Performed By: #### 5 7021-8 #### [facility] CLIA [id number] [address] [place] [address] Nucleated RBC (Bld) [#/Vol] 10*3/uL Normal <0.01 [facility] Comment on above: Order Comment: Speci men Type: BLOOD SPECIMEN Ordering Facility: [facility] Address: [address] [place] [address] Performed By: #### 5 7021-8 #### [facility] CLIA [id number] [address] [place] [address]606 Nucleated RBC/100 WBC (Bld) [Ratio] 0.0 /100 WBC Normal [facility] Comment on above: Order Comment: Speci men Type: BLOOD SPECIMEN Ordering Facility: [facility] Address: [address] [place] [address] Performed By: #### 5 7021-8 #### [facility] CLIA [id number] [address] [place] [address] Platelet mean volume (Bld) [Entitic vol] 10.4 fL Normal 9.0-12.7 [facility] Comment on above: Order Comment: Speci men Type: BLOOD SPECIMEN Ordering Facility: [facility] Address: [address] [address] Performed By: #### 5 7021-8 #### [facility] CLIA [id number] [address] [place] [address] Platelets (Bld) [#/Vol] 226 10*3/uL Normal 150-400 [facility] Comment on above: Order Comment: Speci men Type: BLOOD SPECIMEN Ordering Facility: [facility] Address: [address] [address] Performed By: #### 5 7021-8 #### [facility] CLIA [id number] [address] [place] [address] RBC (Bld) [#/Vol] 4.74 10*6/uL Normal 3.90-5.20 [facility] Comment on above: Order Comment: Speci men Type: BLOOD SPECIMEN Ordering Facility: [facility] Address: [address] [place] [address] Performed By: #### 5 7021-8 #### [facility] CLIA [id number] [address] [place] [address] WBC (Bld) [#/Vol] 7.03 10*3/uL Normal 3.70-11.00 [facility] Comment on above: Order Comment: Speci men Type: BLOOD SPECIMEN Ordering Facility: [facility] Address: [address] [place] [address] Performed By: #### 5 7021-8 #### [facility] CLIA [id number] [address] [place] [address] Calcium.ionized [Moles/Vol]o n 10-10-2022 Calcium.ionized (Bld) [Mass/Vol] 1.22 mmol/L Normal 1.08-1.30 [facility] Comment on above: Order Comment: Speci men Type: BLOOD SPECIMEN Ordering Facility: [facility] Address: [address] [place] [address] Performed By: #### K LFRS #### [facility] CLIA [id number] [address] [place] [address] [place] Calcium.ionized adjusted to pH 7.4 (Bld) [Moles/Vol] 1.21 mmol/L Normal 1.08-1.30 [facility] Comment on above: Order Comment: Speci men Type: BLOOD SPECIMEN Ordering Facility: [facility] Address: [address] [place] [address] Performed By: #### K LFRS #### [facility] CLIA [id number] [address] [place] [address] [place] Comprehensive metabolic 2000 panelon 10-10-2022 Albumin [Mass/Vol] 4.4 g/dL Normal 3.9-4.9 [facility] Comment on above: Order Comment: Speci men Type: BLOOD SPECIMEN Ordering Facility: [facility] Address: [address] [place] [address] Performed By: #### K LFRS #### [facility] CLIA [id number] [address] [place] [address] [place] ALP [Catalytic activity/Vol] 72 U/L Normal 34-123 [facility] Comment on above: Order Comment: Speci men Type: BLOOD SPECIMEN Ordering Facility: [facility] Address: [address] [place] [address] Performed By: #### K LFRS #### [facility] CLIA [id number] [address] [place] [address] [place] ALT [Catalytic activity/Vol] 22 U/L Normal 7-38 [facility] Comment on above: Order Comment: Speci men Type: BLOOD SPECIMEN Ordering Facility: [facility] Address: [address] [place] [address] Performed By: #### K LFRS #### [facility] CLIA [id number] [address] [place] [address] [place] Anion gap [Moles/Vol] 9 mmol/L Normal 9-18 [facility] Comment on above: Order Comment: Speci men Type: BLOOD SPECIMEN Ordering Facility: [facility] Address: [address] [place] [address] Performed By: #### K LFRS #### [facility] CLIA [id number] [address] [place] [address] [place] AST [Catalytic activity/Vol] 21 U/L Normal 13-35 [facility] Comment on above: Order Comment: Speci men Type: BLOOD SPECIMEN Ordering Facility: [facility] Address: [address] [place] [address] Performed By: #### K LFRS #### [facility] CLIA [id number] [address] [place] [address] [place] Bilirubin [Mass/Vol] 0.4 mg/dL Normal 0.2-1.3 [facility] Comment on above: Order Comment: Speci men Type: BLOOD SPECIMEN Ordering Facility: [facility] Address: [address] [place] [address] Performed By: #### K LFRS #### [facility] CLIA [id number] [address] [place] [address] [place] Calcium [Mass/Vol] 9.4 mg/dL Normal 8.5-10.2 [facility] Comment on above: Order Comment: Speci men Type: BLOOD SPECIMEN Ordering Facility: [facility] Address: [address] [place] [address] Performed By: #### K LFRS #### [facility] CLIA [id number] [address] [place] [address] [place] Chloride [Moles/Vol] 102 mmol/L Normal 97-105 [facility] Comment on above: Order Comment: Speci men Type: BLOOD SPECIMEN Ordering Facility: [facility] Address: [address] [place] [address] Performed By: #### K LFRS #### [facility] CLIA [id number] [address] [place] [address] [place] CO2 [Moles/Vol] 27 mmol/L Normal 22-30 [facility] Comment on above: Order Comment: Speci men Type: BLOOD SPECIMEN Ordering Facility: [facility] Address: [address] [place] [address] Performed By: #### K LFRS #### [facility] CLIA [id number] [address] [place] [address] [place] Creatinine [Mass/Vol] 0.76 mg/dL Normal 0.58-0.96 [facility] Comment on above: Order Comment: Speci men Type: BLOOD SPECIMEN Ordering Facility: [facility] Address: [address] [place] [address] Performed By: #### K LFRS #### [facility] IA [id number] [address] [place] [address] [place] ESTIMATED GLOMERULAR FILTRATION RATE 91 mL/min/1.73m??? Normal >=60 [facility] Comment on above: Order Comment: Speci men Type: BLOOD SPECIMEN Ordering Facility: [facility] Address: [address] [place] [address] Result Comment: Dorota mated Glomerular Filtration Rate (eGFR) is calculated using the 2020 CKD-EPI creatinine equation. This equation utilizes serum creatinine, sex, and age as parameters. The creatinine assay has traceable calibration to isotope dilution-mass spectrometry. Refer to KDIGO guidelines for clinical interpretation. In patients with unstable renal function, e.g. those with acute kidney injury, the eGFR may not accurately reflect actual GFR. Performed By: #### K LFRS #### [facility] CLIA [id number] [address] [place] [address] [place] Glucose [Mass/Vol] 104 mg/dL High 74-99 [facility] Comment on above: Order Comment: Speci men Type: BLOOD SPECIMEN Ordering Facility: [facility] Address: [address] [place] [address] Result Comment: The [place] [employer] (ADA) provides guidance for cutoff values for fasting glucose and random glucose. The ADA defines fasting as no caloric intake for at least 8 hours. Fasting plasma glucose results between 100 to 125 mg/dL indicate increased risk for diabetes (prediabetes). Fasting plasma glucose results greater than or equal to 126 mg/dL meet the criteria for diagnosis of diabetes. In the absence of unequivocal hyperglycemia, results should be confirmed by repeat testing. In a patient with classic symptoms of hyperglycemia or hyperglycemic crisis, random plasma glucose results greater than or equal to 200 mg/dL meet the criteria for diagnosis of diabetes. Reference: Standards of Medical Care in Diabetes 2016, [place] [employer]. Diabetes Care. 2016.39(Suppl 1). Performed By: #### K LFRS #### [facility] CLIA [id number] [address] [place] [address] [place] Potassium [Moles/Vol] 4.3 mmol/L Normal 3.7-5.1 [facility] Comment on above: Order Comment: Speci men Type: BLOOD SPECIMEN Ordering Facility: [facility] Address: [address] [place] [address] Performed By: #### K LFRS #### [facility] CLIA [id number] [address] [place] [address] [place] Protein [Mass/Vol] 8.6 g/dL High 6.3-8.0 [facility] Comment on above: Order Comment: Speci men Type: BLOOD SPECIMEN Ordering Facility: [facility] Address: [address] [place] [address] Performed By: #### K LFRS #### [facility] CLIA [id number] [address] [place] [address] [place] Sodium [Moles/Vol] 138 mmol/L Normal 136-144 [facility] Comment on above: Order Comment: Speci men Type: BLOOD SPECIMEN Ordering Facility: [facility] Address: [address] [place] [address] Performed By: #### K LFRS #### [facility] CLIA [id number] [address] [place] [address] [place] Urea nitrogen [Mass/Vol] 15 mg/dL Normal 7-21 [facility] Comment on above: Order Comment: Speci men Type: BLOOD SPECIMEN Ordering Facility: [facility] Address: [address] [place] [address] Performed By: #### K LFRS #### [facility] CLIA [id number] [facility] [address] [place] IMMUNOFIXATION SCREEN, SERUM on 10-10-2022 INTERPRETATION (MPA) Atypical restricted bands are present in the IgG and kappa regions. Consistent with IgG kappa monoclonal gammopathy. Normal [facility] Comment on above: Order Comment: Speci men Type: BLOOD SPECIMEN Ordering Facility: [facility] Address: [address] [place] [address] Performed By: #### I FESC #### [facility] CLIA [id number] [address] [place] [address] STATES [place] [facility] MPA RESULT M protein is present. Abnormal No M p rotein is identified. [facility] Comment on above: Order Comment: Speci men Type: BLOOD SPECIMEN Ordering Facility: [facility] Address: [address] [place] [address] Performed By: #### I FESC #### [facility] CLIA [id number] [address] [place] [address] OF [place] STAFF REVIEW (MPA) Reviewed by Nuris Tanner MD Normal [facility] Comment on above: Order Comment: Speci men Type: BLOOD SPECIMEN Ordering Facility: [facility] Address: [address] [place] [address] Performed By: #### I FESC #### [facility] CLIA [id number] [address] [place] [address] [place] IMMUNOGLOBULINS GAMon 2022 IgA [Mass/Vol] 63 mg/dL Low 70-400 [facility] Comment on above: Order Comment: Speci men Type: BLOOD SPECIMEN Ordering Facility: [facility] Address: [address] [place] [address] Performed By: #### K LFRS #### [facility] CLIA [id number] [address] [place] [address] [place] IgG [Mass/Vol] 2357 mg/dL High 700-1600 [facility] Comment on above: Order Comment: Speci men Type: BLOOD SPECIMEN Ordering Facility: [facility] Address: [address] [place] [address] Performed By: #### K LFRS #### [facility] CLIA [id number] [address] [place] [address] [place] IgM [Mass/Vol] 33 mg/dL Low 40-230 [facility] Comment on above: Order Comment: Speci men Type: BLOOD SPECIMEN Ordering Facility: [facility] Address: [address] [place] [address] Performed By: #### K LFRS #### [facility] CLIA [id number] [address] [place] [address] [place] KAPPA/DYER,FREE,SERon 2022 Immunoglobulin light chains.kappa.free (S) [Mass/Vol] 11.3 mg/L Normal 3.3-19.4 [facility] Comment on above: Order Comment: Speci men Type: BLOOD SPECIMEN Ordering Facility: [facility] Address: [address] [place] [address] Result Comment: Rare ly, increased serum free light chains levels may not be detected or accurately quantified due to prozone phenomenon or in high viscosity samples using this immunoturbidimetric assay. Correlation with other laboratory results and clinical findings is recommended. The [place] Free Light Chain was performed using the Binding Site Optilite immunoturbidimetric method. Result obtained with different assay methods or kits cannot be used interchangeably. Performed By: #### K LFRS #### [facility] CLIA [id number] [facility] [place] [address] [place] Immunoglobulin light chains.kappa/Immunog lobulin light chains.lambda (S) [Mass ratio] 1.66 High 0.26-1.65 [facility] Comment on above: Order Comment: Speci men Type: BLOOD SPECIMEN Ordering Facility: [facility] Address: [address] [place] [address] Performed By: #### K LFRS #### [facility] CLIA [id number] [address] [place] [address] [place] Immunoglobulin light chains.lambda.free [Mass/Vol] 6.8 mg/L Normal 5.7-26.3 [facility] Comment on above: Order Comment: Speci men Type: BLOOD SPECIMEN Ordering Facility: [facility] Address: [address] [place] [address] Result Comment: Rare ly, increased serum free light chains levels may not be detected or accurately quantified due to prozone phenomenon or in high viscosity samples using this immunoturbidimetric assay. Correlation with other laboratory results and clinical findings is recommended. The [place] Free Light Chain was performed using the Binding Site Optilite immunoturbidimetric method. Result obtained with different assay methods or kits cannot be used interchangeably. Performed By: #### K LFRS #### [facility] CLIA [id number] [address] [place] [address] [place] LDH SerPl-cCncon 10-10-2022 LDH [Catalytic activity/Vol] 200 U/L Normal 135-214 [facility] Comment on above: Order Comment: Speci men Type: BLOOD SPECIMEN Ordering Facility: [facility] Address: [address] [place] [address] Performed By: #### 1 952-1, 2885-2 #### [facility] CLIA [id number] [address] [place] [address] [place] PROTEIN ELECTROPHORESIS SERU M (P)on 10-10-2022 Albumin [Mass/Vol] 4.28 g/dL Normal 3.43-5.41 [facility] Comment on above: Order Comment: Speci men Type: BLOOD SPECIMEN Ordering Facility: [facility] Address: [address] [place] [address] Performed By: #### 1 952-1, 2885-2 #### [facility] CLIA [id number] [address] [place] [address] [place] Alpha 1 globulin Elph [Mass/Vol] 0.29 g/dL Normal 0.18-0.43 [facility] Comment on above: Order Comment: Speci men Type: BLOOD SPECIMEN Ordering Facility: [facility] Address: [address] [place] [address] Performed By: #### 1 952-1, 288-2 #### [facility] CLIA [id number] [address] [place] [address] [place] Alpha 2 globulin Elph [Mass/Vol] 0.66 g/dL Normal 0.42-0.98 [facility] Comment on above: Order Comment: Speci men Type: BLOOD SPECIMEN Ordering Facility: [facility] Address: [address] [place] [address] Performed By: #### 1 952-1, 288-2 #### [facility] CLIA [id number] [address] [place] [address] [place] Beta globulin Elph [Mass/Vol] 0.74 g/dL Normal 0.61-1.17 [facility] Comment on above: Order Comment: Speci men Type: BLOOD SPECIMEN Ordering Facility: [facility] Address: [address] [place] [address] Performed By: #### 1 952-1, 2885-2 #### [facility] CLIA [id number] [address] [place] [address] [place] Gamma globulin Elph [Mass/Vol] 2.54 g/dL High 0.53-1.51 [facility] Comment on above: Order Comment: Speci men Type: BLOOD SPECIMEN Ordering Facility: [facility] Address: [address] [place] [address] Performed By: #### 1 952-, 288-2 #### [facility] CLIA [id number] [address] [id number] [place] INTERPRETATION COMMENT FOR PROTEIN ELECTROPHORESIS See separate immunofixation report for characterization of monoclonal gammopathy. Normal [facility] Comment on above: Order Comment: Speci men Type: BLOOD SPECIMEN Ordering Facility: [facility] Address: [address] [place] [address] Performed By: #### 1 952-1, 288-2 #### [facility] CLIA [id number] [address] [place] [address] [place] M-PROTEIN LOCATION Gamma Fraction 1 Normal [facility] Comment on above: Order Comment: Speci men Type: BLOOD SPECIMEN Ordering Facility: [facility] Address: [address] [place] [address] Performed By: #### 1 952-, 2884- #### [facility] CLIA [id number] [address] [place] [address] [place] Protein Fractions [Interp] An M protein is identified on protein electrophoresis. Abnormal No definitive M protein is identified on protein electrophoresi s. [facility] Comment on above: Order Comment: Speci men Type: BLOOD SPECIMEN Ordering Facility: [facility] Address: [address] [place] [address] Performed By: #### 1 952-, 2884-2 #### [facility] CLIA [id number] [address] [place] [address] [place] Protein.monoclonal Elph [Mass/Vol] 2.17 g/dL High <=0.00 [facility] Comment on above: Order Comment: Speci men Type: BLOOD SPECIMEN Ordering Facility: [facility] Address: [address] [place] [address] Performed By: #### 1 952-1, 288-2 #### [facility] CLIA [id number] [address] [place], [place] [address] [place] SPE STAFF REVIEW Reviewed by MD Frank Pradhan [facility] Comment on above: Order Comment: Speci men Type: BLOOD SPECIMEN Ordering Facility: [facility] Address: [address] [place], [place] [address] Performed By: #### 1 952-1, 2885-2 #### [facility] CLIA [id number] [address] [place] [address] [place] Phosphate SerPl-mCncon 10-10 Phosphate [Mass/Vol] 3.2 mg/dL Normal 2.7-4.8 [facility] Comment on above: Order Comment: Speci men Type: BLOOD SPECIMEN Ordering Facility: [facility] Address: [address] [place] [address] Performed By: #### 1 952-1, 2885-2 #### [facility] CLIA [id number] [address] [place] [address] [place] Prot SerPl-mCncon 10-10-2022 Protein [Mass/Vol] 8.5 g/dL High 6.3-8.0 [facility] Comment on above: Order Comment: Speci men Type: BLOOD SPECIMEN Ordering Facility: [facility] Address: [address] [place] [address] Performed By: #### 1 952-1, 2885-2 #### [facility] CLIA [id number] [address] [place], [place] [address] [place] Urate SerPl-mCncon Urate [Mass/Vol] 5.8 mg/dL Normal 2.5-6.6 [facility] Comment on above: Order Comment: Speci men Type: BLOOD SPECIMEN Ordering Facility: [facility] Address: [address] [place] [address] Performed By: #### 1 952-1, 2885-2 #### [facility] CLIA [id number] [address] [facility] [address] [place] MG MAMM SCREEN 3D OFE CADon 10-28-2021 MG MAMM SCREEN 3D OFE CAD Patient: ROBERTO RICHTER Exam Date: 10/28/2021 : 1965 Gender:F Ordering : DR GIO JAIMES Admission #: [id number] Family : THEODORE ROWLEYDAVON Order #: [id number] CLICK HERE TO VIEW EXAM RADIOLOGY REPORT PROCEDURE: MAMMOGRAM SCREENING 3D BILATERAL CAD COMPARISON: MG MAMM SCREEN 3D OFE CAD, 10/25/2020. MG MAMM SCREEN OFE W CAD, 10/20/2019. INDICATIONS: Screening mammography Calculator Name NCI Breast Cancer Risk Assessment Tool 5 Year Breast Cancer Risk 1.30% Lifetime Breast Cancer Risk 8.00% Personal Breast Cancer No Personal Ovarian Cancer No Treatments None Family Cancers Mother with ovarian cancer at age 58; Grandmother-maternal with ovarian cancer at age 48; Aunt-maternal with ovarian cancer at age 50. LOCATION: [facility] BREAST COMPOSITION: Heterogeneously dense,which may obscure small masses. FINDINGS: DIAGNOSTIC CATEGORY 1--NEGATIVE. NO CHANGE FROM COMPARISON ASSESSMENT. Scattered benign-appearing calcifications are present. Scattered benign-appearing lymph nodes are present. Scattered benign-appearing nodules are present. RIGHT BREAST: No significant suspicious finding. LEFT BREAST: No significant suspicious finding. RECOMMENDATIONS: ROUTINE MAMMOGRAM AND CLINICAL EVALUATION IN 12 MONTHS. PLEASE NOTE: A NORMAL MAMMOGRAM DOES NOT EXCLUDE THE POSSIBILITY OF BREAST CANCER. A CLINICALLY SUSPICIOUS PALPABLE LUMP SHOULD BE BIOPSIED. Dictated by: Leslye Rodriguez MD on 10/28/2021 at 10:17 Approved by: Leslye Rodriguez MD on 10/28/2021 at 10:18 Normal [facility] CBC W Auto Differential pane l (Bld)on 09-09-2021 Abs Immature Gran <0.03 <0.10 k/uL [facility] Basophils (Bld) [#/Vol] 0.07 10*3/uL <0.11 k/uL [facility] Basophils/100 WBC (Bld) 1.0 % [facility] Differential cell count method Nom (Bld) Auto [facility] Eosinophils (Bld) [#/Vol] 0.16 10*3/uL <0.46 k/uL [facility] Eosinophils/100 WBC (Bld) 2.3 % [facility] Erythrocyte distribution width (RBC) [Ratio] 13.2 % 11.5 - 15.0 % [facility] Hematocrit (Bld) [Volume fraction] 41.3 % 36.0 - 46.0 % [facility] Hemoglobin (Bld) [Mass/Vol] 13.3 g/dL 11.5 - 15.5 g/dL [facility] Immature Gran % 0.1 % [facility] Lymphocytes (Bld) [#/Vol] 3.14 10*3/uL 1.00 - 4.00 k/uL [facility] Lymphocytes/100 WBC (Bld) 44.6 % [facility] MCH (RBC) [Entitic mass] 30.2 pg 26.0 - 34.0 pg [facility] MCHC (RBC) [Mass/Vol] 32.2 g/dL 30.5 - 36.0 g/dL [facility] MCV (RBC) [Entitic vol] 93.7 fL 80.0 - 100.0 fL [facility] Monocytes (Bld) [#/Vol] 0.65 10*3/uL <0.87 k/uL [facility] Monocytes/100 WBC (Bld) 9.2 % [facility] Neutrophils (Bld) [#/Vol] 3.01 10*3/uL 1.45 - 7.50 k/uL [facility] Neutrophils/100 WBC (Bld) 42.8 % [facility] Nucleated RBC (Bld) [#/Vol] 10*3/uL <0.01 k/uL [facility] Nucleated RBC/100 WBC (Bld) [Ratio] 0.0 /100 WBC [facility] Platelet mean volume (Bld) [Entitic vol] 10.5 fL 9.0 - 12.7 fL [facility] Platelets (Bld) [#/Vol] 214 10*3/uL 150 - 400 k/uL [facility] RBC (Bld) [#/Vol] 4.41 10*6/uL 3.90 - 5.2 0 m/uL [facility] WBC (Bld) [#/Vol] 7.04 10*3/uL 3.70 - 11. 00 k/uL [facility] Comprehensive metabolic 2000 panelon 05-09-2022 Albumin [Mass/Vol] 4.4 g/dL 3.9 - 4.9 g/dL [facility] ALP [Catalytic activity/Vol] 75 U/L 34 - 123 U/L [facility] ALT [Catalytic activity/Vol] 23 U/L 7 - 38 U/L [facility] Anion gap [Moles/Vol] 11 mmol/L 9 - 18 mmol/L [facility] AST [Catalytic activity/Vol] 24 U/L 13 - 35 U/L [facility] Bilirubin [Mass/Vol] 0.2 mg/dL 0.2 - 1 .3 mg/dL [facility] Calcium [Mass/Vol] 9.7 mg/dL 8.5 - 10. 2 mg/dL [facility] Chloride [Moles/Vol] 101 mmol/L 97 - 10 5 mmol/L [facility] CO2 [Moles/Vol] 28 mmol/L 22 - 30 mmol/L [facility] Creatinine [Mass/Vol] 0.90 mg/dL 0.58 - 0.96 mg/dL [facility] Estimated Glomerular Filtration Rate 75 mL/min/1.73m >=60 mL/min/1.73m [facility] Glucose [Mass/Vol] 92 mg/dL 74 - 99 mg/dL [facility] Potassium [Moles/Vol] 4.1 mmol/L 3.7 - 5.1 mmol/L [facility] Protein [Mass/Vol] 8.1 g/dL High 6.3 - 8.0 g/dL [facility] Sodium [Moles/Vol] 140 mmol/L 136 - 144 mmol/L [facility] Urea nitrogen [Mass/Vol] 16 mg/dL 7 - 21 mg/dL [facility] LD LACTATE DEHYDROon 022 LDH [Catalytic activity/Vol] 194 U/L 135 - 214 U/L [facility] PHOSPHORUS INORGANICon 09-09 Phosphate [Mass/Vol] 4.0 mg/dL 2.7 - 4 .8 mg/dL [facility] URIC ACID BLOODon 09-09-2021 Urate [Mass/Vol] 6.4 mg/dL 2.5 - 6.6 mg/dL [facility] LIPID PROFILEon 08-03-2021 CHOL-HDL RATIO NORM SEE BELOW Normal [facility] Comment on above: Result Comment: 3.3 - 4.4 LOW RISK 4.4 - 7.1 AVERAGE RISK 7.1 - 11.0 MODERATE RISK >11.0 HIGH RISK Performed By: #### L IPID #### [facility] [address] [address] [address] Rome Sharp Cholesterol [Mass/Vol] 171 mg/dL Normal <=200 [facility] Comment on above: Performed By: #### L IPID #### [facility] [address] [place] [address] Dr. Rome Sharp Cholesterol in HDL [Mass/Vol] 49 mg/dL Normal 40-60 [facility] Comment on above: Performed By: #### L IPID #### [facility] [address] [place] [address] Dr. Rome Sharp Cholesterol in LDL [Mass/Vol] 106.2 mg/dL Normal [facility] Comment on above: Performed By: #### L IPID #### [facility] [address] [place] [address] Dr. Rome Sharp Cholesterol.total/Ch olesterol in HDL [Mass ratio] 3.5 {ratio} Normal [facility] Comment on above: Performed By: #### L IPID #### [facility] [address] [place] [address] Dr. Rome Sharp HDL NORMAL > or = 60 mg/dl - LO W CARDIOVASCULAR RISK <40 mg/dl - HIGH CARDIOVASCULAR RISK Normal [facility] Comment on above: Performed By: #### L IPID #### [facility] [address] [place] [address] Dr. Rome Sharp LDL CALC NORMAL SEE BELOW Normal [facility] Comment on above: Result Comment: <100 mg/dl OPTIMAL 100 - 129 mg/dl NEAR OR ABOVE OPTIMAL 130 - 159 mg/dl BORDERLINE HIGH 160 - 189 mg/dl HIGH >190 mg/dl VERY HIGH Performed By: #### L IPID #### [facility] [address] [place] [address] Dr. Rome Sharp Triglyceride [Mass/Vol] 79 mg/dL Normal <=150 [facility] Comment on above: Performed By: #### L IPID #### [facility] [address] [place], [place] [address] Dr. Rome Sharp VLDL CALC 15.8 mg/dL Normal [facility] Comment on above: Performed By: #### L IPID #### [facility] [address] [place], [place] [address] Dr. Rome Sharp PROGRESSon 08-02-2020 PROGRESS HNO ID: [id number] Author: Bismark DeutschRt) Jaison Masters Service: Radiology Author Type: Type Casting Machine Operator Type: Progress Notes Filed: 08/02/2020 3:18 PM Note Text: Radiology Service Progress Note PATIENT NAME: Roberto Richter DATE OF SERVICE: August 02, 2020 TIME: 3:17 PM PATIENT IDENTITY VERIFICATION COMPLETED USING TWO (2) IDENTIFIERS: Name and Date of confirmed by patient verbally. FALL SCREENING: Has the patient had 2 falls in the last year or 1 fall with injury or currently using an Ambulatory Assistive Device (Walker, Cane, Wheelchair, Crutches, etc.)? No PATIENT GENDER DATA: Female. status: : No status: NO. 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 No fracture. Vertebral body heights are maintained. Mild multilevel degenerative changes noted throughout the spine. No other significant abnormality. IMPRESSION: No radiographic evidence of myeloma. Liquor Store Manager: ALBERTO Transcribe Date/Time: Aug 02 2020 4:25P Dictated by : DIVYA GUTHRIE MD This examination was interpreted and the report reviewed and electronically signed by: DIVYA GUTHRIE MD on Aug 02 2020 4:27PM EST [id number] [facility] Vital Signs Date Time Vital Sign Value Performing Clinician Jefersoni karyna 10-17-2022 10:02-0400 Body height 157.5 cm Dylan Gates MD Work Phone: [facility] 10-17-2022 10:02-0400 Body temperature 97.59 [degF] Dylan Gates MD Work Phone: [facility] 10-17-2022 10:02-0400 Body weight 93.53 kg Dylan Gates MD Work Phone: [facility] 10-17-2022 10:02-0400 Diastolic blood pressure 75 mm[Hg] Dylan Gates MD Work Phone: [facility] 10-17-2022 10:02-0400 Heart rate 79 /min Dylan Gates MD Work Phone: [facility] 10-17-2022 10:02-0400 Respiratory rate 16 /min Dylan Gates MD Work Phone: [facility] 10-17-2022 10:02-0400 SaO2% (BldA) [Mass fraction] 97 % Dylan Gates MD Work Phone: [facility] 10-17-2022 10:02-0400 Systolic blood pressure 152 mm[Hg] Dylan Gates MD Work Phone: [facility] 09-20-2021 14:28-0400 Body height 157.5 cm Courtney Miranda APRN.FIRE INVESTIGATION MANAGER Work Phone: [facility] 09-20-2021 14:28-0400 Body temperature 98.01 [degF] Courtney Miranda APRN.FIRE INVESTIGATION MANAGER Work Phone: [facility] 09-20-2021 14:28-0400 Body weight 92.72 kg Courtney Miranda APRN.FIRE INVESTIGATION MANAGER Work Phone: [facility] 09-20-2021 14:28-0400 Diastolic blood pressure 77 mm[Hg] Courtney Miranda AUTOMATION TEST ENGINEER.FIRE INVESTIGATION MANAGER Work Phone: [facility] 09-20-2021 14:28-0400 Heart rate 67 /min Courtney Miranda AUTOMATION TEST ENGINEER.FIRE INVESTIGATION MANAGER Work Phone: [facility] 09-20-2021 14:28-0400 Respiratory rate 16 /min Courtney Miranda AUTOMATION TEST ENGINEER.FIRE INVESTIGATION MANAGER Work Phone: [facility] 09-20-2021 14:28-0400 SaO2% (BldA) [Mass fraction] 96 % Courtney Miranda AUTOMATION TEST ENGINEER.FIRE INVESTIGATION MANAGER Work Phone: [facility] 09-20-2021 14:28-0400 Systolic blood pressure 134 mm[Hg] Courtney Miranda AUTOMATION TEST ENGINEER.FIRE INVESTIGATION MANAGER Work Phone: [facility] Encounters Encounter Date Encounter Type Care Provider Facility Start: 09-22-2023 End: 09-22-2023 ambulatory [facility] Start: 09-22-2023 Encounter for gynecological examination (general) (routine) without abnormal findings [facility] Start: 08-19-2023 Telephone encounter Dylan kevin MD Work Phone: Hematology/Oncology Comment on above: Records faxed Start: 08-04-2023 Refill [facility] Comment on above: Primary hypertension Start: 06-05-2023 End: 06-05-2023 ambulatory [facility] Start: 06-05-2023 Encounter for genera l adult medical examination without abnormal findings [facility] Start: 05-01-2023 Refill [facility] Comment on above: Primary hypertension Start: 04-10-2023 End: 04-13-2023 ambulatory DYLAN GATES Facility:[facility] Start: 04-10-2023 End: 04-10-2023 ambulatory Dylan Gates MD Work Phone: Hematology/Oncology Comment on above: Smoldering multiple myeloma (SMM) (Primary Dx) Start: 04-10-2023 End: 04-10-2023 Telemedicine consultation with patient Dylan Gates MD Work Phone: [facility] Start: 04-03-2023 End: 04-03-2023 ambulatory [facility] Facility:[facility] Start: 03-09-2023 End: 03-09-2023 ambulatory [facility] Facility:[facility] Start: 10-17-2022 End: 10-17-2022 ambulatory DYLAN DASH Facility:[facility] Start: 10-17-2022 End: 10-17-2022 Office outpatient visit 15 minutes Dylan Gates MD Work Phone: Hematology/Oncology Comment on above: Smoldering multiple myeloma (SMM) (Primary Dx) Start: 10-10-2022 End: 10-10-2022 ambulatory DYLAN GATES Facility:[facility] Start: 05-12-2022 End: 05-12-2022 ambulatory Dylan Gates MD Work Phone: Hematology/Oncology Comment on above: Smoldering multiple myeloma (SMM) (Primary Dx) Start: 05-12-2022 End: 05-12-2022 Telemedicine consultation with patient Dylan Gates MD Work Phone: [facility] Start: 10-28-2021 End: 10-29-[address] LESLYE RODRIGUEZ Facility: Start: 09-20-2021 End: 09-20-2021 ambulatory Courtney Miranda APRN.FIRE INVESTIGATION MANAGER Work Phone: Hematology/Oncology Comment on above: Multiple myeloma not having achieved remission (HCC) (Primary Dx); Monoclonal paraproteinemia; Smoldering multiple myeloma (SMM) Start: 09-20-2021 End: 09-20-2021 Patient encounter procedure Courtney Miranda APRN.FIRE INVESTIGATION MANAGER Work Phone: [facility] Start: 09-05-2021 Telephone encounter Dylan kevin MD Work Phone: Laboratory Medicine Comment on above: Lab Orders Start: 08-03-2021 End: 08-04-[address] GIO JAIMES Facility:[facility] Procedures Date Procedure Procedure Detail Performing Clinician Start: 09-22-2023 Follow-up visit Follow-up JIAN CARDENAS Start: 11-05-2022 Mammography Maryse Lundberg STAVE JOINTER Start: 05-29-2022 Adult depression scr eening assessment Maryserusty Lundberg STAVE JOINTER Start: 05-18-2021 Adult depression scr eening assessment Dylan Gates MD Work Phone: Start: 10-20-2019 Mammography Dylan kevin MD Work Phone: Start: 04-29-2019 Lipid 1996 panel - S gonzalez or Plasma Dylan Gates MD Work Phone: Start: 07-26-2018 Colonoscopy Dylan kevin MD Work Phone: Plan of Treatment Date Care Activity Detail Author Start: 07-26-2028 Screening for malign ant neoplasm of colon Colonoscopy [facility] Start: 04-03-2026 Diabetes Screening Diabetes Screenin g [facility] Start: 10-10-2025 DIABETES SCREEN DIABETES SCREEN [facility] Start: 08-02-2025 DTaP,Tdap and Td Vac cines (2 - Td or Tdap) DTaP,Tdap and Td Vaccines (2 - Td or Tdap) [facility] Start: 08-02-2025 Urine microalbumin profile [facility] Start: 05-06-2025 DIABETES SCREEN DIABETES SCREEN [facility] Start: 09-09-2024 DIABETES SCREEN DIABETES SCREEN [facility] Start: 06-05-2024 Adult BMI Screening Adult BMI Screen ing [facility] Start: 06-05-2024 Tobacco Screening Tobacco Screening [facility] Start: 04-29-2024 Lipid 1996 panel - S gonzalez or Plasma Lipid Screening [facility] Start: 04-29-2024 Lipid panel Lipid Screening [facility] Start: 04-29-2024 LIPID SCREEN LIPID SCREEN [facility] Start: 04-06-2024 Tobacco Screening Tobacco Screening [facility] Start: 01-03-2024 Influenza vaccination P [facility] Start: 12-16-2023 Adult BMI Screening Adult BMI Screen ing [facility] Start: 11-06-2023 Screening for malign ant neoplasm of breast Mammogram [facility] Start: 09-22-2023 End: 09-22-2023 Patient encounter procedure 09/22/2023 10:00 AM EDT Office Visit Susy L [place] [facility] - Medical Oncology [address] [place] [address] Audrey Cardenas PA [address] [place] [address] Susy Avina [facility] Start: 06-05-2023 End: 06-05-2023 Patient encounter procedure 06/05/2023 1:30 PM EST Office Visit [facility] [address] [place] [id number] Gio Jaimes MD [address] [place] [address], [address] [place], [place] [id number] [facility] Start: 05-29-2023 Depression Screening Depression Scre ening [facility] Start: 05-04-2023 Behavioral Health Screening Behavioral Health Screening [facility] Start: 04-18-2023 End: 10-18-2023 [id number] [Mass/volume] in Serum or Plasma B2 MICROGLOBULIN B Lab Routine Smoldering multiple myeloma (SMM) Expected: 04/18/2023 (Approximate), Expires: 10/18/2023 [facility] Work Phone: Comment on above: Expected: 04/18/2023 (Approximate), Expires: 10/18/2023 Start: 04-18-2023 End: 10-18-2023 Calcium.ionized [Moles/volume] in Blood CALCIUM IONIZED BLOOD Lab Routine Smoldering multiple myeloma (SMM) Expected: 04/18/2023 (Approximate), Expires: 10/18/2023 [facility] Work Phone: Comment on above: Expected: 04/18/2023 (Approximate), Expires: 10/18/2023 Start: 04-18-2023 End: 10-18-2023 CBC W Auto Differential panel - Blood CBC + DIFF Lab Routine Smoldering multiple myeloma (SMM) Expected: 04/18/2023 (Approximate), Expires: 10/18/2023 [facility] Work Phone: Comment on above: Expected: 04/18/2023 (Approximate), Expires: 10/18/2023 Start: 04-18-2023 End: 10-18-2023 Comprehensive metabolic 2000 panel - Serum or Plasma COMP METABOLIC PANEL Lab Routine Smoldering multiple myeloma (SMM) Expected: 04/18/2023 (Approximate), Expires: 10/18/2023 [facility] Work Phone: Comment on above: Expected: 04/18/2023 (Approximate), Expires: 10/18/2023 Start: 04-18-2023 End: 06-18-2023 KAPPA/DYER,FREE,SER KAPPA/DYER,FREE,SER Lab Routine Smoldering multiple myeloma (SMM) Expected: 04/18/2023 (Approximate), Expires: 06/18/2023 [facility] Work Phone: Comment on above: Expected: 04/18/2023 (Approximate), Expires: 06/18/2023 Start: 04-18-2023 End: 10-18-2023 Lactate dehydrogenase [Enzymatic activity/volume] in Serum or Plasma LD LACTATE DEHYDRO Lab Routine Smoldering multiple myeloma (SMM) Expected: 04/18/2023 (Approximate), Expires: 10/18/2023 [facility] Work Phone: Comment on above: Expected: 04/18/2023 (Approximate), Expires: 10/18/2023 Start: 04-18-2023 End: 10-18-2023 MONOCLONAL PROTEIN, SERUM (BLOOD) MONOCLONAL PROTEIN, SERUM (BLOOD) Lab Routine Smoldering multiple myeloma (SMM) Expected: 04/18/2023 (Approximate), Expires: 10/18/2023 [facility] Work Phone: Comment on above: Expected: 04/18/2023 (Approximate), Expires: 10/18/2023 Start: 04-18-2023 End: 10-18-2023 Phosphate [Mass/volume] in Serum or Plasma PHOSPHORUS INORGANIC Lab Routine Smoldering multiple myeloma (SMM) Expected: 04/18/2023 (Approximate), Expires: 10/18/2023 [facility] Work Phone: Comment on above: Expected: 04/18/2023 (Approximate), Expires: 10/18/2023 Start: 04-18-2023 End: 10-18-2023 PROTEIN ELECTROPHORESIS SERUM W/INTERP PROTEIN ELECTROPHORESIS SERUM W/INTERP Lab Routine Smoldering multiple myeloma (SMM) Expected: 04/18/2023 (Approximate), Expires: 10/18/2023 [facility] Work Phone: Comment on above: Expected: 04/18/2023 (Approximate), Expires: 10/18/2023 Start: 04-18-2023 End: 10-18-2023 Urate [Mass/volume] in Serum or Plasma URIC ACID BLOOD Lab Routine Smoldering multiple myeloma (SMM) Expected: 04/18/2023 (Approximate), Expires: 10/18/2023 [facility] Work Phone: Comment on above: Expected: 04/18/2023 (Approximate), Expires: 10/18/2023 Start: 01-02-2023 Covid-19 Vaccine () Covid-19 Vaccine () [facility] Start: 01-02-2023 Influenza vaccination C [facility] Start: 11-15-2022 End: 05-18-2023 [id number] [Mass/volume] in Serum or Plasma B2 MICROGLOBULIN B Lab Routine Smoldering multiple myeloma (SMM) Expected: 11/15/2022, Expires: 05/18/2023 [facility] Work Phone: Comment on above: Expected: 11/15/2022 , Expires: 05/18/2023 Start: 11-15-2022 End: 05-18-2023 Calcium.ionized [Moles/volume] in Blood CALCIUM IONIZED BLOOD Lab Routine Smoldering multiple myeloma (SMM) Expected: 11/15/2022, Expires: 05/18/2023 [facility] Work Phone: Comment on above: Expected: 11/15/2022 , Expires: 05/18/2023 Start: 11-15-2022 End: 05-18-2023 CBC W Auto Differential panel - Blood CBC + DIFF Lab Routine Smoldering multiple myeloma (SMM) Expected: 11/15/2022, Expires: 05/18/2023 [facility] Work Phone: Comment on above: Expected: 11/15/2022 , Expires: 05/18/2023 Start: 11-15-2022 End: 05-18-2023 Comprehensive metabolic 2000 panel - Serum or Plasma COMP METABOLIC PANEL Lab Routine Smoldering multiple myeloma (SMM) Expected: 11/15/2022, Expires: 05/18/2023 [facility] Work Phone: Comment on above: Expected: 11/15/2022 , Expires: 05/18/2023 Start: 11-15-2022 End: 05-18-2023 KAPPA/DYER,FREE,SER KAPPA/DYER,FREE,SER Lab Routine Smoldering multiple myeloma (SMM) Expected: 11/15/2022, Expires: 05/18/2023 [facility] Work Phone: Comment on above: Expected: 11/15/2022 , Expires: 05/18/2023 Start: 11-15-2022 End: 05-18-2023 Lactate dehydrogenase [Enzymatic activity/volume] in Serum or Plasma LD LACTATE DEHYDRO Lab Routine Smoldering multiple myeloma (SMM) Expected: 11/15/2022, Expires: 05/18/2023 [facility] Work Phone: Comment on above: Expected: 11/15/2022 , Expires: 05/18/2023 Start: 11-15-2022 End: 05-18-2023 MONOCLONAL PROTEIN, SERUM (BLOOD) MONOCLONAL PROTEIN, SERUM (BLOOD) Lab Routine Smoldering multiple myeloma (SMM) Expected: 11/15/2022, Expires: 05/18/2023 [facility] Work Phone: Comment on above: Expected: 11/15/2022 , Expires: 05/18/2023 Start: 11-15-2022 End: 05-18-2023 Phosphate [Mass/volume] in Serum or Plasma PHOSPHORUS INORGANIC Lab Routine Smoldering multiple myeloma (SMM) Expected: 11/15/2022, Expires: 05/18/2023 [facility] Work Phone: Comment on above: Expected: 11/15/2022 , Expires: 05/18/2023 Start: 11-15-2022 End: 05-18-2023 PROTEIN ELECTROPHORESIS SERUM W/INTERP PROTEIN ELECTROPHORESIS SERUM W/INTERP Lab Routine Smoldering multiple myeloma (SMM) Expected: 11/15/2022, Expires: 05/18/2023 [facility] Work Phone: Comment on above: Expected: 11/15/2022 , Expires: 05/18/2023 Start: 11-15-2022 End: 05-18-2023 Urate [Mass/volume] in Serum or Plasma URIC ACID BLOOD Lab Routine Smoldering multiple myeloma (SMM) Expected: 11/15/2022, Expires: 05/18/2023 [facility] Work Phone: Comment on above: Expected: 11/15/2022 , Expires: 05/18/2023 Start: 05-18-2022 Adult depression screening assessment DEPRESSION SCREENING [facility] Start: 05-04-2022 DEPRESSION ASSESSMENT DEPRESSION ASS ESSMENT [facility] Start: 01-02-2022 Influenza vaccination C [facility] Start: 09-09-2021 End: 09-06-2022 [id number] [Mass/volume] in Serum or Plasma [facility] Work Phone: Comment on above: Expected: 09/09/2021 , Expires: 09/06/2022 Start: 09-09-2021 End: 09-06-2022 CALCIUM IONIZED B [facility] Work Phone: Comment on above: Expected: 09/09/2021 , Expires: 09/06/2022 Start: 09-09-2021 End: 09-06-2022 MONOCLONAL PROTEIN, SERUM (BLOOD) [facility] Work Phone: Comment on above: Expected: 09/09/2021 , Expires: 09/06/2022 Start: 09-09-2021 End: 09-06-2022 PROTEIN ELECTROPHORESIS SERUM W/INTERP [facility] Work Phone: Comment on above: Expected: 09/09/2021 , Expires: 09/06/2022 Start: 07-03-2021 COVID-19 VACCINE (4 - Booster for Moderna series) COVID-19 VACCINE (4 - Booster for Moderna series) [facility] Start: 05-30-2021 COVID-19 VACCINE (4 - Booster for Moderna series) COVID-19 VACCINE (4 - Booster for Moderna series) [facility] Start: 10-19-2020 Mammography [facility] Start: 10-19-2020 Screening for malign ant neoplasm of breast Mammogram Screening [facility] Start: 07-27-2019 Colonoscopy COLONOSCOPY [facility] Start: 07-27-2019 COLORECTAL CANCER SCREENING COLORECTAL CANCER SCREENING [facility] Start: 07-27-2019 Screening for malign ant neoplasm of colon [facility] Start: 07-08-2016 PAP TESTING PAP TESTING [facility] Start: 07-08-2016 Screening for malign ant neoplasm of cervix Pap Testing [facility] Start: 02-13-2016 Administration of varicella zoster vaccine [facility] Start: 02-13-2016 SHINGRIX VACCINE (1 of 2) ALEX GRIX VACCINE (1 of 2) [facility] Start: 02-13-2016 SHINGRIX VACCINE (2 of 3) ALEX GRIX VACCINE (2 of 3) [facility] Start: 02-02-2014 SHINGRIX VACCINE (1 of 2) ALEX GRIX VACCINE (1 of 2) [facility] Start: 02-02-2009 COLOGUARD (FIT-DNA) COLOGUARD (FIT-D NA) [facility] Start: 02-02-[address] COLONOGRAPHY [facility] Start: 02-02-2009 FECAL OCCULT BLOOD FECAL OCCULT BLOO D [facility] Start: 02-02-2009 Screening for malign ant neoplasm of colon [facility] Start: 02-02-2009 SIGMOIDOSCOPY SIGMOIDOSCOPY [facility] Start: 02-02-1994 HPV TESTING HPV TESTING [facility] Start: 02-02-1994 Screening for malign ant neoplasm of cervix HPV Testing [facility] Start: 02-02-1983 Urine microalbumin profile DTAP,TDAP,TD (1 - Tdap) [facility] Start: 02-02-1982 Adult BMI Follow Up Plan Adult BMI F ollow Up Plan [facility] Start: 02-02-1982 HEPATITIS C SCREENING HEPATITIS C [facility] Start: 02-02-1982 Hepatitis C screening Hepatitis C [facility] Start: 02-02-1982 HIV SCREENING HIV SCREENING [facility] Start: 02-02-1982 HIV screening HIV Screening [facility] Start: 02-02-1970 PNEUMOCOCCAL (1 - PCV) PNEUMOCOCCAL (1 - PCV) [facility] Start: 02-02-1970 Pneumococcal vaccination [facility] Start: 1964 HEPATITIS B (1 of 3 - 3-dose series) HEPATITIS B (1 of 3 - 3-dose series) [facility] Immunizations Immunization Date Immunization Notes Care Provider Mily almeida 02-11-2021 influenza virus vaccine, unspecified formulation Dylan Gates MD Work Phone: [facility] 08-17-2020 COVID-19, mRNA, LNP- S, PF, 100mcg/0.5mL Dose Maryse Toño [facility] 07-20-2020 COVID-19, mRNA, LNP- S, PF, 100mcg/0.5mL Dose Maryse Toño [facility] 01-19-2020 influenza virus vaccine, unspecified formulation Courtney Miranda APRN.CNP Work Phone: [facility] 12-19-2015 zoster vaccine, live Courtney sauceda AUTOMATION TEST ENGINEER.FIRE INVESTIGATION MANAGER Work Phone: [facility] 12-19-2015 zoster vaccine, unspecified formulation Maryse Lundberg [facility] 08-03-2015 tetanus toxoid, redu sujata diphtheria toxoid, and acellular pertussis vaccine, adsorbed Courtney Miranda AUTOMATION TEST ENGINEER.FIRE INVESTIGATION MANAGER Work Phone: [facility] 06-25-2009 influenza virus vaccine, unspecified formulation Courtney Miranda AUTOMATION TEST ENGINEER.FIRE INVESTIGATION MANAGER Work Phone: [facility] 06-25-2009 novel [id number], preservative-free, injectable Courtney Miranda AUTOMATION TEST ENGINEER.FIRE INVESTIGATION MANAGER Work Phone: [facility] Payers Date Payer Category Payer Unknown [id number] 2022 Private Health Insurance [id number] 2020 Private Health Insurance [facility] [employer] [id number] 2020-Present [phone] [address] [address] [place] [address] PPO [id number] 2020 Private Health Insurance [id number] 1964 Unknown [id number] 1964 Unknown [id number] 1964 Unknown [id number] 1964 Unknown [id number] 1959 Unknown [id number] Social History Date Type Detail Facility Start: 05-29-2022 Tobacco smoking status NHIS Never smoked tobacco [facility] Start: 03-14-2020 End: 09-20-2021 Alcohol intake Current drinker of alcohol (finding) [facility] Start: 03-14-2020 End: 10-17-2022 Alcohol intake [facility] Start: 07-09-2011 History SDOH Alcohol Comment Rare socially 2 a year [facility] Start: 1965 Sex Assigned At Female [facility] Start: 09-10-2021 End: 09-20-2021 Exposure to SARS-CoV-2 (event) Not sure [facility] Start: 09-20-2021 End: 10-17-2022 Tobacco use panel [facility] Adult Depression Screening Assessment 0 [facility] Start: 10-31-2019 Gender identity Identifies as female gender (finding) [facility] Start: 10-31-2019 Sexual orientation Heterosexual (finding) [facility] Start: 05-29-2022 Tobacco use and exposure Smokeless tobacco non-user [facility] Do you belong to any clubs or organizations such as hinduism groups, [employer], [employer] or athletic groups, or school groups? Yes [facility] Are you now , , , , never or living with a partner? [facility] How often to you hav e a drink containing alcohol? Monthly or less [facility] How many standard dr inks containing alcohol do you have on a typical day? 1 or 2 [facility] How often do you hav e 6 or more drinks on 1 occasion? Never [facility] Do you feel stress - tense, restless, nervous, or anxious, or unable to sleep at night because your mind is troubled all the time - these days [OSQ] To some extent [facility] Start: 11-12-2020 Education 15 [facility] Start: 08-25-2022 Alcohol Comment rarely [facility] Start: 1965 Sex Assigned At Not on file [facility] How hard is it for y ou to pay for the very basics like food, housing, medical care, and heating Not very hard [facility] Clinical Notes 09-05-2021 to 08-19-2023 Telephone Encounter - Vannessa Reis - 08/19/2023 2:22 PM EDTTelephone Encounter - Maryse Lundberg CMA - 08/04/2023 8:23 AM Dylan Martin MD - 04/10/2023 4:30 PM EST Note Date & Type Note Facility 08-19-2023 Miscellaneous Notes Patient called requesting we fax her records to new doctor due to change in insurance. Records faxed to Dr. Low [phone]. documented in this encounter [facility] 08-04-2023 Miscellaneous Notes Refill request, patient's insurance changed documented in this encounter [facility] 08-04-2023 Telephone encounter Note Refill request, patient's insurance changed [facility] 05-01-2023 Miscellaneous Notes Refill request documented in this encounter [facility] 05-01-2023 Telephone encounter Note Refill request [facility] 04-10-2023 Note HNO ID: [id number] Author: Dylan Gates MD Service: ? Author Type: Physician Type: Progress Notes Filed: 04/10/2023 5:29 PM Note Text: NAME: Neelam Roberto CLINIC NO.: [id number] DATE OF SERVICE: April 10, 2023 (Dylan) Some elements in this clinic note that are critical to medical decision making have been carefully reviewed and included from a prior clinic note dated: October 17, 2022 (Dylan) Referring Provider: Dr. Gio Jaimes Additional Clinicians involved in Roberto Richter's care: VIRTUAL VISIT PROGRESS NOTE This is a virtual visit using [employer] Zoom Video Visit. It required patient-provider interaction for the medical decision making as documented below. I have communicated my name and active licensure. The patient's identity and physical location were verified at the time of this visit. Either the patient or their legal arborist representative has been informed of the risks and benefits of -- and alternatives to -- treatment through a remote evaluation and consents to proceed with the evaluation remotely. DIAGNOSIS: Monoclonal gammopathy. Returns for Results of testing. 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 BM Bx 10 - 15% plasma cells. November 2019 New positive new lytic lesions noted on 02/2019 bone survey not able to be confirmed with PET/CT. We will continue active surveillance. - referred to [facility] due to insurance coverage. K/L ratio: stable Current testing remains stable with no evidence of lytic lesions on most recent bone survey. 2. Family history of ovarian cancer Patient was seen by senior medical billing specialist . Underwent BRCA 1-2 mutation testing, large rearrangements and deletions testing- all negative. PLAN: F/u prn - no longer covered with [facility] Establishing care in [facility] with [facility] HPI: Case History: 11/15/2019 - PET/CT: HEAD and NECK: No evidence of focal uptake to suggest FDG avid neoplastic process. CHEST: No evidence of focal uptake to suggest FDG avid neoplastic process. ABDOMEN/PELVIS: No evidence of focal uptake to suggest FDG avid neoplastic process. EXTREMITIES/SKELETON: No evidence of focal uptake to suggest FDG avid neoplastic process. 02/11/2019 - XR bone survey: New round smoothly marginated lytic lesions within the right humerus and within the right and left femoral neck. Nonspecific but compatible with monoclonal gammopathy. Read at the [facility]. Updated Visit, April 10, 2023: Virtual Visit - could not get her video to work. Keeps getting dizzy due to elevated BP. - seeing PCP for this. Otherwise Myeloma indicators are stable. Kidney function and CBC are normal. Aside from BP and dizziness has dong feeling good and walking and exercising. Updated Visit, October 17, 2022: Doing ok. Myeloma continues to slowly progress. Still working on cutting back sugar. Right ankle hurts as she's trying to walk. Updated Visit, May 12, 2022: Telephone only for 5 minutes I called Roberto as requested and she is doing well - reviewed labs and has no significant changes. No new complaints. Updated Visit, September 20, 2021: Roberto Richter returns for follow-up. Her last couple of visits have been virtual/telephone visits to review labs. Overall, she has been doing well. She denies any unusual pain. She denies fevers, chills, night sweats and signs/symptoms of infection. She has hot flashes from menopause. She denies any palpable lumps or bumps. She will be retiring from [employer] in 11 days. She may need to adjust future appointments due to her insurance changing. Today she offers no particular complaints. No new issues, problems or concerns. Updated Visit, May 20, 2021: Telephone only for 5 minutes Overall doing very well. Planning a vacation in 07/2021. Labs reviewed and are stable. She reports being off of her diet and will get back on it. Updated Visit, February 18, 2021: Telephone only for 6 minutes Had a flu shot on 02/13/2021 and then did her labs for smoldering myeloma which have some increase in her light ratio / and M-spike. No other indicators of disease progression. She feels a little achy and sore but otherwise is doing well. 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 She is here with her Leslye. She was initially diagnosed with MGUS in 2012. This was followed conservatively, but looking back at her records when I inherited her care I saw that she was found to have a few bone lesions and therefore I obtained a bone marrow that showed 10 to 15% plasma cells. PET scan was negative for bone lesions. Therefore I have reobtained bone survey that is detai (more content not included)... [facility] 04-10-2023 History of Presen t illness Narrative Images from the original note were not included. NAME: Roberto Richter CLINIC NO.: [id number] DATE OF SERVICE: April 10, 2023 ([facility]) Some elements in this clinic note that are critical to medical decision making have been carefully reviewed and included from a prior clinic note dated: October 17, 2022 ([facility]) Referring Provider: Dr. Gio Jaimes Additional Clinicians involved in Roberto Richter's care: VIRTUAL VISIT PROGRESS NOTE This is a virtual visit using [employer] Video Visit. It required patient-provider interaction for the medical decision making as documented below. I have communicated my name and active licensure. The patient's identity and physical location were verified at the time of this visit. Either the patient or their legal arborist representative has been informed of the risks and benefits of -- and alternatives to -- treatment through a remote evaluation and consents to proceed with the evaluation remotely. DIAGNOSIS: Monoclonal gammopathy. Returns for Results of testing. 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 BM Bx 10 - 15% plasma cells. November 2019 New positive new lytic lesions noted on 02/2019 bone survey not able to be confirmed with PET/CT. We will continue active surveillance. - referred to [facility] due to insurance coverage. K/L ratio: stable Current testing remains stable with no evidence of lytic lesions on most recent bone survey. 2. Family history of ovarian cancer Patient was seen by senior medical billing specialist . Underwent BRCA 1-2 mutation testing, large rearrangements and deletions testing- all negative. PLAN: F/u prn - no longer covered with [facility] Establishing care in [facility] with [facility] HPI: Case History: 11/15/2019 - PET/CT: HEAD and NECK: No evidence of focal uptake to suggest FDG avid neoplastic process. CHEST: No evidence of focal uptake to suggest FDG avid neoplastic process. ABDOMEN/PELVIS: No evidence of focal uptake to suggest FDG avid neoplastic process. EXTREMITIES/SKELETON: No evidence of focal uptake to suggest FDG avid neoplastic process. 02/11/2019 - XR bone survey: New round smoothly marginated lytic lesions within the right humerus and within the right and left femoral neck. Nonspecific but compatible with monoclonal gammopathy. Read at the [facility]. Updated Visit, April 10, 2023: Virtual Visit - could not get her video to work. Keeps getting dizzy due to elevated BP. - seeing PCP for this. Otherwise Myeloma indicators are stable. Kidney function and CBC are normal. Aside from BP and dizziness has dong feeling good and walking and exercising. Updated Visit, October 17, 2022: Doing ok. Myeloma continues to slowly progress. Still working on cutting back sugar. Right ankle hurts as she's trying to walk. Updated Visit, May 12, 2022: Telephone only for 5 minutes I called Roberto as requested and she is doing well - reviewed labs and has no significant changes. No new complaints. Updated Visit, September 20, 2021: Roberto Richter returns for follow-up. Her last couple of visits have been virtual/telephone visits to review labs. Overall, she has been doing well. She denies any unusual pain. She denies fevers, chills, night sweats and signs/symptoms of infection. She has hot flashes from menopause. She denies any palpable lumps or bumps. She will be retiring from [employer] in 11 days. She may need to adjust future appointments due to her insurance changing. Today she offers no particular complaints. No new issues, problems or concerns. Updated Visit, May 20, 2021: Telephone only for 5 minutes Overall doing very well. Planning a vacation in 07/2021. Labs reviewed and are stable. She reports being off of her diet and will get back on it. Updated Visit, February 18, 2021: Telephone only for 6 minutes Had a flu shot on 02/13/2021 and then did her labs for smoldering myeloma which have some increase in her light ratio / and M-spike. No other indicators of disease progression. She feels a little achy and sore but otherwise is doing well. 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 She is here with her Leslye. She was initially diagnosed with MGUS in 2012. This was followed conservatively, but looking back at her records when I inherited her care I saw that she was found to have a few bone lesions and therefore I obtained a bone marrow that showed 10 to 15% plasma cells. PET scan was negative for bone lesions. Therefore I have reobtained bone survey that is detailed below. There are no lytic findings noted. We will continue observation. Her myeloma protein and light chain assay and ratio are stable. Laboratories remained stable as well. She remains asymptomatic. 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 We elected to hold off on treatment because she had very stable disease in each she also had equivocal lesions on bone survey that were not identified on PET/CT. Her laboratories still remain stable and kappa to lambda light chain assay and ratio is normal. She remains largely asymptomatic and has successfully lost 30 pounds by changing her diet aggressively. Updated Visit, November 21, 2019: Conducted by telephone Roberto Richter is a 54 year old female seen for MGUS under workup for progressive disease to myeloma with lytic lesions noted on bone survey in 02/2019. Bone marrow showed progression to 10-15% plasma cells. PET scan was negative for bone lesions. I called her to discuss these findings and indicated that we needed more information in order to proceed with treatment. PET detailed below. Updated Visit, November 04, 2019: Roberto is 54 yo and is accopanied by her Leslye. We reviewed findings and she has progressed to myeloma, standard risk. Discussed initial therapy and will consider referral to BMT. Updated Visit, October 12, 2019: This is a 54 year old female with past medical history of MGUS returns for followup today. She saw Dr. Kit Bliss at [facility] in 2010. At that time she was complaining on pain and tingling in her both lower extremities Her multiple myeloma blood work from November 2012 - looks stable, no increase in the M spike amount ( 1.44 gm), no anemia, hypercalcemia or renal failure. Baseline assessment on initial diagnosis 04/2010 IgG kappa monocolonal gammopathy of undetermined significance Related Organ or Tissue Involvement (CRAB): No related organ dysfunction. Hypercalcemia related to hyperparathyroidism. No myeloma related bone disease on work up that included PET/CT (locally 06/20/2010) Bone marrow biopsy from May 2010 with poor overall sample but plasma cell infiltration: <5%, kappa restricted, suboptimal sample. Seen by genetic service, BRCA1/2 testing came back negative for any mutations or deletions.Skeletal survey on 08/08/2014 showed no evidence of lytic lesions No issues currently but labs are pending. Has been stable for 9 years. New Lytic bone lesion on last bone survey 02/2020 that I reviewed today. She was not aware of this. Still feels great. May need PET/CT to determine extent of disease but after we do a bone marrow biopsy. REVIEW OF SYSTEMS Per HPI and otherwise negative by full review of organ systems. ECOG PERFORMANCE STATUS: 0 PHYSICAL EXAMINATION: Vitals: There were no vitals taken for this visit. There is no height or weight on file to calculate BSA.No exam ALLERGIES: ALLERGIES No Known Allergies MEDICATIONS: losartan (COZAAR) 50 mg tablet TAKE 1 TABLET BY MOUTH IN THE MORNING and ONE TABLET BEFORE bedtime simvastatin (ZOCOR) 40 mg tablet Take 40 mg by mouth daily at bedtime. Calcium Carbonate-Vitamin D3 (OSCAL 500+D) 500 mg(1,250mg) -600 unit chew Take 1 tablet by mouth twice daily. COENZYME N58-N-[id number] ORAL Take 2,000 mg by mouth once daily. [place]-3 Fatty Acids-Vitamin E 1,000 mg cap Take 1 capsule by mouth once daily. ascorbic acid, vitamin C, (VITAMIN C) 500 mg tablet Take 1,000 mg by mouth once daily. MULTI-VITAMIN ORAL Take 1 tablet by mouth once daily. cyanocobalamin (VITAMIN B-12) 1,000 mcg tab Take 1,000 mcg by mouth once daily. LABORATORY VALUES: WBC (k/uL) Date Value 04/03/2023 6.83 RBC (m/uL) Date Value 04/03/2023 4.48 Hemoglobin (g/dL) Date Value 04/03/2023 13.8 Hematocrit (%) Date Value 04/03/2023 42.9 MCV (fL) Date Value 04/03/2023 95.8 MCH (pg) Date Value 04/03/2023 30.8 MCHC (g/dL) Date Value 04/03/2023 32.2 RDW-CV (%) Date Value 04/03/2023 13.2 Platelet Count (k/uL) Date Value 04/03/2023 213 MPV (fL) Date Value 04/03/2023 10.3 Glucose (mg/dL) Date Value 04/03/2023 108 (H) BUN (mg/dL) Date Value 04/03/2023 15 Creatinine (mg/dL) Date Value 04/03/2023 0.77 Sodium (mmol/L) Date Value 04/03/2023 140 Potassium (mmol/L) Date Value 04/03/2023 4.4 Chloride (mmol/L) Date Value 04/03/2023 104 CO2 (mmol/L) Date Value 04/03/2023 27 Protein, Total (g/dL) Date Value 04/03/2023 8.5 (H) 04/03/2023 8.1 (H) Albumin (g/dL) Date Value 04/03/2023 4.5 Calcium, Total (mg/dL) Date Value 04/03/2023 9.1 Alkaline Phosphatase (U/L) Date Value 04/03/2023 67 Bilirubin, Total (mg/dL) Date Value 04/03/2023 0.3 AST (U/L) Date Value 04/03/2023 19 ALT (U/L) Date Value 04/03/2023 24 M-Protein Concentration Date Value 04/03/2023 1.92 g/dL 10/10/2022 2.17 g/dL 05/06/2022 1.91 g/dL 09/09/2021 1.67 g/dL 05/13/2021 1.56 gm/dL 02/13/2021 1.71 gm/dL 08/02/2020 1.62 gm/dL 03/05/2020 1.65 gm/dL 10/12/2019 1.56 gm/dL DIAGNOSIS: No diagnosis found. PAST MEDICAL HISTORY Diagnosis Date BRCA negative Hypercalcemia Hyperparathyroidism (HCC) MGUS (monoclonal gammopathy of unknown significance) Multiple myeloma (HCC) 11/02/2019 PAST SURGICAL HISTORY Procedure Laterality Date HYSTERECTOMY HX 2005 BSO as well, on HRT PARATHYROIDECTOMY/EXPLORATION PARATHYROIDS TONSILLECTOMY HX Social History Tobacco Use Smoking status: Never Smokeless tobacco: Never Vaping Use Vaping Use: Never used Substance Use Topics Alcohol use: Yes Comment: Rare socially 2 a year Drug use: No FAMILY HISTORY Problem Relation Age of Onset Cancer Mother Ovarian Cancer Maternal Grandmother Ovarian Heart Father hypertension I spent a total of 20 minutes on the date of the service which included preparing to see the patient, completing clinical documentation, counseling and educating the patient/family/caregiver, ordering medications, tests, or procedures, independently interpreting results (not separately reported), and communicating results to the patient/family/caregiver. Dylan Gates MD, CPE Hematology and Oncology Services Provided at: [place], [place] CC: Dr. Gio Jaimes [id number] [place] [address] documented in this encounter [facility] 10-17-2022 Note HNO ID: [id number] Author: Dylan Gates MD Service: ? Author Type: Physician Type: Progress Notes Filed: 10/24/2022 7:57 AM Note Text: NAME: Roberto Richter CLINIC NO.: [id number] DATE OF SERVICE: October 17, 2022 (Dylan) Some elements in this clinic note that are critical to medical decision making have been carefully reviewed and included from a prior clinic note dated: May 12, 2022 (Dylan) Referring Provider: Dr. Gio Jaimes Additional Clinicians involved in Roberto Richter's care: CC: Monoclonal gammopathy. Returns for Results of testing. 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 BM Bx 10 - 15% plasma cells. November 2019 New positive new lytic lesions noted on 02/2019 bone survey not able to be confirmed with PET/CT. We will continue active surveillance. K/L ratio: stable Current testing remains stable with no evidence of lytic lesions on most recent bone survey. 2. Family history of ovarian cancer Patient was seen by senior medical billing specialist . Underwent BRCA 1-2 mutation testing, large rearrangements and deletions testing- all negative. PLAN: Repeat labs in 6 months. Phone call 1 week after to review. HPI: Updated Visit, October 17, 2022: Doing ok. Myeloma continues to slowly progress. Still working on cutting back sugar. Right ankle hurts as she's trying to walk. Updated Visit, May 12, 2022: Telephone only for 5 minutes I called Roberto as requested and she is doing well - reviewed labs and has no significant changes. No new complaints. Updated Visit, September 20, 2021: Roberto Richter returns for follow-up. Her last couple of visits have been virtual/telephone visits to review labs. Overall, she has been doing well. She denies any unusual pain. She denies fevers, chills, night sweats and signs/symptoms of infection. She has hot flashes from menopause. She denies any palpable lumps or bumps. She will be retiring from [employer] [facility] [employer] in 11 days. She may need to adjust future appointments due to her insurance changing. Today she offers no particular complaints. No new issues, problems or concerns. Updated Visit, May 20, 2021: Telephone only for 5 minutes Overall doing very well. Planning a vacation in 07/2021. Labs reviewed and are stable. She reports being off of her diet and will get back on it. Updated Visit, February 18, 2021: Telephone only for 6 minutes Had a flu shot on 02/13/2021 and then did her labs for smoldering myeloma which have some increase in her light ratio / and M-spike. No other indicators of disease progression. She feels a little achy and sore but otherwise is doing well. 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 She is here with her Leslye. She was initially diagnosed with MGUS in 2012. This was followed conservatively, but looking back at her records when I inherited her care I saw that she was found to have a few bone lesions and therefore I obtained a bone marrow that showed 10 to 15% plasma cells. PET scan was negative for bone lesions. Therefore I have reobtained bone survey that is detailed below. There are no lytic findings noted. We will continue observation. Her myeloma protein and light chain assay and ratio are stable. Laboratories remained stable as well. She remains asymptomatic. 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 We elected to hold off on treatment because she had very stable disease in each she also had equivocal lesions on bone survey that were not identified on PET/CT. Her laboratories still remain stable and kappa to lambda light chain assay and ratio is normal. She remains largely asymptomatic and has successfully lost 30 pounds by changing her diet aggressively. Updated Visit, November 21, 2019: Conducted by telephone Roberto Richter is a 54 year old female seen for MGUS under workup for progressive disease to myeloma with lytic lesions noted on bone survey in 02/2019. Bone marrow showed progression to 10-15% plasma cells. PET scan was negative for bone lesions. I called her to discuss these findings and indicated that we needed more information in order to proceed with treatment. PET detailed below. Updated Visit, November 04, 2019: Roberto is 54 yo and is accopanied by her Leslye. We reviewed findings and she has progressed to myeloma, standard risk. Discussed initial therapy and will consider referral to BMT. Updated Visit, October 12, 2019: This is a 54 year old female with past medical history of MGUS returns for followup today. She saw Dr. Kit Bliss at [facility] in 2010. At that time she was complaining on pain and tingling in her both lower extre (more content not included)... [facility] 10-17-2022 Instructions Dylan Gates MD - 10/17/2022 10:50 AM EDT Repeat labs in 6 months. Phone call 1 week after to review. documented in this encounter [facility] 10-17-2022 History of Presen t illness Narrative Images from the original note were not included. NAME: Roberto Richter CLINIC NO.: [id number] DATE OF SERVICE: October 17, 2022 ([facility]) Some elements in this clinic note that are critical to medical decision making have been carefully reviewed and included from a prior clinic note dated: May 12, 2022 (Dylan) Referring Provider: Dr. Gio Jaimes Additional Clinicians involved in Roberto Richter's care: CC: Monoclonal gammopathy. Returns for Results of testing. 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 BM Bx 10 - 15% plasma cells. November 2019 New positive new lytic lesions noted on 02/2019 bone survey not able to be confirmed with PET/CT. We will continue active surveillance. K/L ratio: stable Current testing remains stable with no evidence of lytic lesions on most recent bone survey. 2. Family history of ovarian cancer Patient was seen by senior medical billing specialist . Underwent BRCA 1-2 mutation testing, large rearrangements and deletions testing- all negative. PLAN: Repeat labs in 6 months. Phone call 1 week after to review. HPI: Updated Visit, October 17, 2022: Doing ok. Myeloma continues to slowly progress. Still working on cutting back sugar. Right ankle hurts as she's trying to walk. Updated Visit, May 12, 2022: Telephone only for 5 minutes I called Roberto as requested and she is doing well - reviewed labs and has no significant changes. No new complaints. Updated Visit, September 20, 2021: Roberto Richter returns for follow-up. Her last couple of visits have been virtual/telephone visits to review labs. Overall, she has been doing well. She denies any unusual pain. She denies fevers, chills, night sweats and signs/symptoms of infection. She has hot flashes from menopause. She denies any palpable lumps or bumps. She will be retiring from [employer] in 11 days. She may need to adjust future appointments due to her insurance changing. Today she offers no particular complaints. No new issues, problems or concerns. Updated Visit, May 20, 2021: Telephone only for 5 minutes Overall doing very well. Planning a vacation in 07/2021. Labs reviewed and are stable. She reports being off of her diet and will get back on it. Updated Visit, February 18, 2021: Telephone only for 6 minutes Had a flu shot on 02/13/2021 and then did her labs for smoldering myeloma which have some increase in her light ratio / and M-spike. No other indicators of disease progression. She feels a little achy and sore but otherwise is doing well. 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 She is here with her Leslye. She was initially diagnosed with MGUS in 2013. This was followed conservatively, but looking back at her records when I inherited her care I saw that she was found to have a few bone lesions and therefore I obtained a bone marrow that showed 10 to 15% plasma cells. PET scan was negative for bone lesions. Therefore I have reobtained bone survey that is detailed below. There are no lytic findings noted. We will continue observation. Her myeloma protein and light chain assay and ratio are stable. Laboratories remained stable as well. She remains asymptomatic. 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 We elected to hold off on treatment because she had very stable disease in each she also had equivocal lesions on bone survey that were not identified on PET/CT. Her laboratories still remain stable and kappa to lambda light chain assay and ratio is normal. She remains largely asymptomatic and has successfully lost 30 pounds by changing her diet aggressively. Updated Visit, November 21, 2019: Conducted by telephone Roberto Richter is a 54 year old female seen for MGUS under workup for progressive disease to myeloma with lytic lesions noted on bone survey in 02/2019. Bone marrow showed progression to 10-15% plasma cells. PET scan was negative for bone lesions. I called her to discuss these findings and indicated that we needed more information in order to proceed with treatment. PET detailed below. Updated Visit, November 04, 2019: Roberto is 54 yo and is accopanied by her Leslye. We reviewed findings and she has progressed to myeloma, standard risk. Discussed initial therapy and will consider referral to BMT. Updated Visit, October 12, 2019: This is a 54 year old female with past medical history of MGUS returns for followup today. She saw Dr. Kit Bliss at [facility] in 2010. At that time she was complaining on pain and tingling in her both lower extremities Her multiple myeloma blood work from November 2012 - looks stable, no increase in the M spike amount ( 1.44 gm), no anemia, hypercalcemia or renal failure. Baseline assessment on initial diagnosis 04/2010 IgG kappa monocolonal gammopathy of undetermined significance Related Organ or Tissue Involvement (CRAB): No related organ dysfunction. Hypercalcemia related to hyperparathyroidism. No myeloma related bone disease on work up that included PET/CT (locally 06/20/2010) Bone marrow biopsy from May 2010 with poor overall sample but plasma cell infiltration: <5%, kappa restricted, suboptimal sample. Seen by genetic service, BRCA1/2 testing came back negative for any mutations or deletions.Skeletal survey on 08/08/2014 showed no evidence of lytic lesions No issues currently but labs are pending. Has been stable for 9 years. New Lytic bone lesion on last bone survey 02/2020 that I reviewed today. She was not aware of this. Still feels great. May need PET/CT to determine extent of disease but after we do a bone marrow biopsy. RADIOGRAPHIC DATA: Reviewed on November 21, 2019 2. 11/15/2019 PET/CT: IMPRESSION: 1. HEAD and NECK: No evidence of focal uptake to suggest FDG avid neoplastic process.. 2. CHEST: No evidence of focal uptake to suggest FDG avid neoplastic process.. 3. ABDOMEN/PELVIS: No evidence of focal uptake to suggest FDG avid neoplastic process.. 4. EXTREMITIES/SKELETON: No evidence of focal uptake to suggest FDG avid neoplastic process.. 1. 02/11/2019 XR bone survey: New round smoothly marginated lytic lesions within the right humerus and within the right and left femoral neck. Nonspecific but compatible with monoclonal gammopathy. Read at the [facility]. REVIEW OF SYSTEMS Per HPI and otherwise negative by full review of organ systems. ECOG PERFORMANCE STATUS: 0 PHYSICAL EXAMINATION: Vitals: BP 152/75 Pulse 79 Temp (Src) 97.6 (Temporal) Resp 16 Ht 5' 2 (1.58m) Wt 206 lb 3.2 oz (93.5kg) SpO2 97% BMI 37.71 kg/(m^2). Body surface area is 2.02 meters squared. General:This is an age-appropriate patient in no acute distress. Head: Atraumatic, symmetric with no lesions visible. Eyes: Pupils equally round and reactive to light, extraocular muscles intact. Neck: Supple Mouth: Mucous membranes are moist, no thrush is noted. Lungs: Clear to auscultation bilaterally with no wheezes crackles or rales. Cardiovascular: Regular rate and rhythm with no murmurs or gallops. Neurologic: Nonfocal to gross visualization. Alert and oriented 3. Psychiatric: No evidence of inappropriate anxiety or depression. Skin: No overt rashes wounds or petechiae. ALLERGIES: ALLERGIES No Known Allergies MEDICATIONS: losartan (COZAAR) 50 mg tablet TAKE 1 TABLET BY MOUTH IN THE MORNING and ONE TABLET BEFORE bedtime simvastatin (ZOCOR) 40 mg tablet Take 40 mg by mouth daily at bedtime. Calcium Carbonate-Vitamin D3 (OSCAL 500+D) 500 mg(1,250mg) -600 unit chew Take 1 tablet by mouth twice daily. COENZYME [id number] ORAL Take 2,000 mg by mouth once daily. Cheshire-3 Fatty Acids-Vitamin E 1,000 mg cap Take 1 capsule by mouth once daily. ascorbic acid, vitamin C, (VITAMIN C) 500 mg tablet Take 1,000 mg by mouth once daily. MULTI-VITAMIN ORAL Take 1 tablet by mouth once daily. cyanocobalamin (VITAMIN B-12) 1,000 mcg tab Take 1,000 mcg by mouth once daily. LABORATORY VALUES: WBC (k/uL) Date Value 10/10/2022 7.03 RBC (m/uL) Date Value 10/10/2022 4.74 Hemoglobin (g/dL) Date Value 10/10/2022 14.3 Hematocrit (%) Date Value 10/10/2022 44.7 MCV (fL) Date Value 10/10/2022 94.3 MCH (pg) Date Value 10/10/2022 30.2 MCHC (g/dL) Date Value 10/10/2022 32.0 RDW-CV (%) Date Value 10/10/2022 13.5 Platelet Count (k/uL) Date Value 10/10/2022 226 MPV (fL) Date Value 10/10/2022 10.4 Glucose (mg/dL) Date Value 10/10/2022 104 (H) BUN (mg/dL) Date Value 10/10/2022 15 Creatinine (mg/dL) Date Value 10/10/2022 0.76 Sodium (mmol/L) Date Value 10/10/2022 138 Potassium (mmol/L) Date Value 10/10/2022 4.3 Chloride (mmol/L) Date Value 10/10/2022 102 CO2 (mmol/L) Date Value 10/10/2022 27 Protein, Total (g/dL) Date Value 10/10/2022 8.6 (H) 10/10/2022 8.5 (H) Albumin (g/dL) Date Value 10/10/2022 4.4 Calcium, Total (mg/dL) Date Value 10/10/2022 9.4 Alkaline Phosphatase (U/L) Date Value 10/10/2022 72 Bilirubin, Total (mg/dL) Date Value 10/10/2022 0.4 AST (U/L) Date Value 10/10/2022 21 ALT (U/L) Date Value 10/10/2022 22 M-Protein Concentration Date Value 10/10/2022 2.17 g/dL 05/06/2022 1.91 g/dL 09/09/2021 1.67 g/dL 05/13/2021 1.56 gm/dL 02/13/2021 1.71 gm/dL 08/02/2020 1.62 gm/dL 03/05/2020 1.65 gm/dL 10/12/2019 1.56 gm/dL DIAGNOSIS: (D47.2) Smoldering multiple myeloma (SMM) (primary encounter diagnosis) PAST MEDICAL HISTORY Diagnosis Date BRCA negative Hypercalcemia Hyperparathyroidism (HCC) MGUS (monoclonal gammopathy of unknown significance) Multiple myeloma (HCC) 11/02/2019 PAST SURGICAL HISTORY Procedure Laterality Date HYSTERECTOMY HX 2005 BSO as well, on HRT PARATHYROIDECTOMY/EXPLORATION PARATHYROIDS TONSILLECTOMY HX Social History Tobacco Use Smoking status: Never Smokeless tobacco: Never Vaping Use Vaping Use: Never used Substance Use Topics Alcohol use: Yes Alcohol/week: 0.0 standard drinks Comment: Rare socially 2 a year Drug use: No FAMILY HISTORY Problem Relation Age of Onset Cancer Mother Ovarian Cancer Maternal Grandmother Ovarian Heart Father hypertension I spent a total of 20 minutes on the date of the service which included preparing to see the patient, [id number] patient care, completing clinical documentation, obtaining and/or reviewing separately obtained history, performing a medically appropriate examination, counseling and educating the patient/family/caregiver, ordering medications, tests, or procedures, independently interpreting results (not separately reported) and communicating results to the patient/family/caregiver. Dylan Gates MD, [facility] Hematology and Oncology Services Provided at: [place], [place] CC: Dr. Gio Jaimes [address] [id number] documented in this encounter [facility] 05-18-2022 Instructions Dylan Gates MD - 05/18/2022 5:02 AM EST Repeat labs in 6 months1 week prior to return. RTC 1 week after to review. documented in this encounter [facility] 05-12-2022 History of Presen t illness Narrative NAME: Roberto Richter CLINIC NO.: [id number] DATE OF SERVICE: May 12, 2022 (Dylan) Some elements in this clinic note that are critical to medical decision making have been carefully reviewed and included from a prior clinic note dated: September 20, 2021 (Ruben) & May 20, 2021 (Dylan).. Referring Provider: Dr. Gio Jaimes Additional Clinicians involved in Roberto Richter's care: VIRTUAL VISIT PROGRESS NOTE This is a virtual visit using Telephone only for 5 minutes. It required patient-provider interaction for the medical decision making as documented below. CC: Monoclonal gammopathy. Returns for Results of testing. 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 BM Bx 10 - 15% plasma cells. November 2019 New positive new lytic lesions noted on 02/2019 bone survey not able to be confirmed with PET/CT. We will continue active surveillance. K/L ratio: stable Current testing remains stable with no evidence of lytic lesions on most recent bone survey. 2. Family history of ovarian cancer Patient was seen by senior medical billing specialist . Underwent BRCA 1-2 mutation testing, large rearrangements and deletions testing- all negative. PLAN: Repeat labs in 6 months1 week prior to return. RTC 1 week after to review. HPI: Updated Visit, May 12, 2022: Telephone only for 5 minutes I called Roberto as requested and she is doing well - reviewed labs and has no significant changes. No new complaints. Updated Visit, September 20, 2021: Roberto Richter returns for follow-up. Her last couple of visits have been virtual/telephone visits to review labs. Overall, she has been doing well. She denies any unusual pain. She denies fevers, chills, night sweats and signs/symptoms of infection. She has hot flashes from menopause. She denies any palpable lumps or bumps. She will be retiring from [employer] in 11 days. She may need to adjust future appointments due to her insurance changing. Today she offers no particular complaints. No new issues, problems or concerns. Updated Visit, May 20, 2021: Telephone only for 5 minutes Overall doing very well. Planning a vacation in 07/2021. Labs reviewed and are stable. She reports being off of her diet and will get back on it. Updated Visit, February 18, 2021: Telephone only for 6 minutes Had a flu shot on 02/13/2021 and then did her labs for smoldering myeloma which have some increase in her light ratio / and M-spike. No other indicators of disease progression. She feels a little achy and sore but otherwise is doing well. 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 She is here with her Leslye. She was initially diagnosed with MGUS in 2012. This was followed conservatively, but looking back at her records when I inherited her care I saw that she was found to have a few bone lesions and therefore I obtained a bone marrow that showed 10 to 15% plasma cells. PET scan was negative for bone lesions. Therefore I have reobtained bone survey that is detailed below. There are no lytic findings noted. We will continue observation. Her myeloma protein and light chain assay and ratio are stable. Laboratories remained stable as well. She remains asymptomatic. 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 We elected to hold off on treatment because she had very stable disease in each she also had equivocal lesions on bone survey that were not identified on PET/CT. Her laboratories still remain stable and kappa to lambda light chain assay and ratio is normal. She remains largely asymptomatic and has successfully lost 30 pounds by changing her diet aggressively. Updated Visit, November 21, 2019: Conducted by telephone Roberto Richter is a 54 year old female seen for MGUS under workup for progressive disease to myeloma with lytic lesions noted on bone survey in 02/2019. Bone marrow showed progression to 10-15% plasma cells. PET scan was negative for bone lesions. I called her to discuss these findings and indicated that we needed more information in order to proceed with treatment. PET detailed below. Updated Visit, November 04, 2019: Roberto is 54 yo and is accopanied by her Leslye. We reviewed findings and she has progressed to myeloma, standard risk. Discussed initial therapy and will consider referral to BMT. Updated Visit, October 12, 2019: This is a 54 year old female with past medical history of MGUS returns for followup today. She saw Dr. Kit Bliss at [facility] in 2010. At that time she was complaining on pain and tingling in her both lower extremities Her multiple myeloma blood work from November 2012 - looks stable, no increase in the M spike amount ( 1.44 gm), no anemia, hypercalcemia or renal failure. Baseline assessment on initial diagnosis 04/2010 IgG kappa monocolonal gammopathy of undetermined significance Related Organ or Tissue Involvement (CRAB): No related organ dysfunction. Hypercalcemia related to hyperparathyroidism. No myeloma related bone disease on work up that included PET/CT (locally 06/20/2010) Bone marrow biopsy from May 2010 with poor overall sample but plasma cell infiltration: <5%, kappa restricted, suboptimal sample. Seen by genetic service, BRCA1/2 testing came back negative for any mutations or deletions.Skeletal survey on 08/08/2014 showed no evidence of lytic lesions No issues currently but labs are pending. Has been stable for 9 years. New Lytic bone lesion on last bone survey 02/2020 that I reviewed today. She was not aware of this. Still feels great. May need PET/CT to determine extent of disease but after we do a bone marrow biopsy. RADIOGRAPHIC DATA: Reviewed on November 21, 2019 2. 11/15/2019 PET/CT: IMPRESSION: 1. HEAD and NECK: No evidence of focal uptake to suggest FDG avid neoplastic process.. 2. CHEST: No evidence of focal uptake to suggest FDG avid neoplastic process.. 3. ABDOMEN/PELVIS: No evidence of focal uptake to suggest FDG avid neoplastic process.. 4. EXTREMITIES/SKELETON: No evidence of focal uptake to suggest FDG avid neoplastic process.. 1. 02/11/2019 XR bone survey: New round smoothly marginated lytic lesions within the right humerus and within the right and left femoral neck. Nonspecific but compatible with monoclonal gammopathy. Read at the [facility]. HISTORY REVIEWED (electronic chart updated): PAST MEDICAL HISTORY Diagnosis Date BRCA negative Hypercalcemia Hyperparathyroidism (HCC) MGUS (monoclonal gammopathy of unknown significance) Multiple myeloma (HCC) 11/02/2019 PAST SURGICAL HISTORY Procedure Laterality Date HYSTERECTOMY HX 2005 BSO as well, on HRT PARATHYROIDECTOMY/EXPLORATION PARATHYROIDS TONSILLECTOMY HX FAMILY HISTORY Problem Relation Age of Onset Cancer Mother Ovarian Cancer Maternal Grandmother Ovarian Heart Father hypertension Social History Tobacco Use Smoking status: Never Smokeless tobacco: Never Vaping Use Vaping Use: Never used Substance Use Topics Alcohol use: Yes Alcohol/week: 0.0 standard drinks Comment: Rare socially 2 a year Drug use: No Current Outpatient Medications Medication Sig simvastatin (ZOCOR) 40 mg tablet Take 40 mg by mouth daily at bedtime. Calcium Carbonate-Vitamin D3 (OSCAL 500+D) 500 mg(1,250mg) -600 unit chew Take 1 tablet by mouth twice daily. COENZYME [id number] ORAL Take 2,000 mg by mouth once daily. Cheshire-3 Fatty Acids-Vitamin E (FISH OIL) 1,000 mg cap Take 1 capsule by mouth once daily. ascorbic acid (VITAMIN C) 500 mg tablet Take 1,000 mg by mouth once daily. MULTI-VITAMIN ORAL Take 1 tablet by mouth once daily. cyanocobalamin (VITAMIN B-12) 1,000 mcg Tab Take 1,000 mcg by mouth once daily. No current facility-administered medications for this visit. ALLERGIES No Known Allergies REVIEW OF SYSTEMS: As noted in HPI PHYSICAL EXAMINATION: VIDEO EXAM: (if completed, performed via video enabled technology) No exam performed LABORATORY DATA: WBC (k/uL) Date Value 05/06/2022 6.95 RBC (m/uL) Date Value 05/06/2022 4.65 Hemoglobin (g/dL) Date Value 05/06/2022 14.2 Hematocrit (%) Date Value 05/06/2022 43.5 MCV (fL) Date Value 05/06/2022 93.5 MCH (pg) Date Value 05/06/2022 30.5 MCHC (g/dL) Date Value 05/06/2022 32.6 RDW-CV (%) Date Value 05/06/2022 13.1 Platelet Count (k/uL) Date Value 05/06/2022 219 MPV (fL) Date Value 05/06/2022 10.8 Glucose (mg/dL) Date Value 05/06/2022 114 (H) BUN (mg/dL) Date Value 05/06/2022 15 Creatinine (mg/dL) Date Value 05/06/2022 0.79 Sodium (mmol/L) Date Value 05/06/2022 135 (L) Potassium (mmol/L) Date Value 05/06/2022 4.4 Chloride (mmol/L) Date Value 05/06/2022 99 CO2 (mmol/L) Date Value 05/06/2022 25 Protein, Total (g/dL) Date Value 05/06/2022 7.9 05/06/2022 8.0 Albumin (g/dL) Date Value 05/06/2022 4.2 Calcium, Total (mg/dL) Date Value 05/06/2022 9.1 Alkaline Phosphatase (U/L) Date Value 05/06/2022 69 Bilirubin, Total (mg/dL) Date Value 05/06/2022 0.3 AST (U/L) Date Value 05/06/2022 19 ALT (U/L) Date Value 05/06/2022 19 M-Protein Concentration Date Value 05/06/2022 1.91 g/dL 09/09/2021 1.67 g/dL 05/13/2021 1.56 gm/dL 02/13/2021 1.71 gm/dL 08/02/2020 1.62 gm/dL 03/05/2020 1.65 gm/dL 10/12/2019 1.56 gm/dL Dylan Gates MD, [place], [place] documented in this encounter [facility] 09-20-2021 History of Presen t illness Narrative Images from the original note were not included. NAME: Roberto Richter [facility] NO.: [id number] DATE OF SERVICE: September 20, 2021 Some elements in this clinic note that are critical to medical decision making have been carefully reviewed and included from a prior clinic note dated: March 14, 2020. Referring Provider: Dr. Gio Jaimes Additional Clinicians involved in Roberto Richter's care: CC: Monoclonal gammopathy. Returns for Results of testing. 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 BM Bx 10 - 15% plasma cells. November 2019 New positive new lytic lesions noted on 02/2019 bone survey not confirmed with PET/CT. We will continue active surveillance. K/L ratio: stable Current testing remains stable with no evidence of lytic lesions on most recent bone survey. 2. Family history of ovarian cancer Patient was seen by senior medical billing specialist . Underwent BRCA 1-2 mutation testing, large rearrangements and deletions testing- all negative. PLAN: 1. Repeat labs in 6 months. 2. Phone call 1 week after to discuss results 3. Will anticipate a follow up appointment in 1 year with labs 1 week prior. HPI: Updated Visit, September 20, 2021: Roberto Richter returns for follow-up. Her last couple of visits have been virtual/telephone visits to review labs. Overall, she has been doing well. She denies any unusual pain. She denies fevers, chills, night sweats and signs/symptoms of infection. She has hot flashes from menopause. She denies any palpable lumps or bumps. She will be retiring from [employer] in 11 days. She may need to adjust future appointments due to her insurance changing. Today she offers no particular complaints. No new issues, problems or concerns. Updated Visit, May 20, 2021: Telephone only for 5 minutes Overall doing very well. Planning a vacation in 07/2021. Labs reviewed and are stable. She reports being off of her diet and will get back on it. Updated Visit, February 18, 2021: Telephone only for 6 minutes Had a flu shot on 02/13/2021 and then did her labs for smoldering myeloma which have some increase in her light ratio / and M-spike. No other indicators of disease progression. She feels a little achy and sore but otherwise is doing well. 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 She is here with her Leslye. She was initially diagnosed with MGUS in 2013. This was followed conservatively, but looking back at her records when I inherited her care I saw that she was found to have a few bone lesions and therefore I obtained a bone marrow that showed 10 to 15% plasma cells. PET scan was negative for bone lesions. Therefore I have reobtained bone survey that is detailed below. There are no lytic findings noted. We will continue observation. Her myeloma protein and light chain assay and ratio are stable. Laboratories remained stable as well. She remains asymptomatic. 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 We elected to hold off on treatment because she had very stable disease in each she also had equivocal lesions on bone survey that were not identified on PET/CT. Her laboratories still remain stable and kappa to lambda light chain assay and ratio is normal. She remains largely asymptomatic and has successfully lost 30 pounds by changing her diet aggressively. Updated Visit, November 21, 2019: Conducted by telephone Roberto Richter is a 54 year old female seen for MGUS under workup for progressive disease to myeloma with lytic lesions noted on bone survey in 02/2019. Bone marrow showed progression to 10-15% plasma cells. PET scan was negative for bone lesions. I called her to discuss these findings and indicated that we needed more information in order to proceed with treatment. PET detailed below. Updated Visit, November 04, 2019: Roberto is 54 yo and is accopanied by her Leslye. We reviewed findings and she has progressed to myeloma, standard risk. Discussed initial therapy and will consider referral to BMT. Updated Visit, October 12, 2019: This is a 54 year old female with past medical history of MGUS returns for followup today. She saw Dr. Kit Bliss at [facility] in 2010. At that time she was complaining on pain and tingling in her both lower extremities Her multiple myeloma blood work from November 2012 - looks stable, no increase in the M spike amount ( 1.44 gm), no anemia, hypercalcemia or renal failure. Baseline assessment on initial diagnosis 04/2010 IgG kappa monocolonal gammopathy of undetermined significance Related Organ or Tissue Involvement (CRAB): No related organ dysfunction. Hypercalcemia related to hyperparathyroidism. No myeloma related bone disease on work up that included PET/CT (locally 06/20/2010) Bone marrow biopsy from May 2010 with poor overall sample but plasma cell infiltration: <5%, kappa restricted, suboptimal sample. Seen by genetic service, BRCA1/2 testing came back negative for any mutations or deletions.Skeletal survey on 08/08/2014 showed no evidence of lytic lesions No issues currently but labs are pending. Has been stable for 9 years. New Lytic bone lesion on last bone survey 02/2020 that I reviewed today. She was not aware of this. Still feels great. May need PET/CT to determine extent of disease but after we do a bone marrow biopsy. RADIOGRAPHIC DATA: Reviewed on November 21, 2019 2. 11/15/2019 PET/CT: IMPRESSION: 1. HEAD and NECK: No evidence of focal uptake to suggest FDG avid neoplastic process.. 2. CHEST: No evidence of focal uptake to suggest FDG avid neoplastic process.. 3. ABDOMEN/PELVIS: No evidence of focal uptake to suggest FDG avid neoplastic process.. 4. EXTREMITIES/SKELETON: No evidence of focal uptake to suggest FDG avid neoplastic process.. 1. 02/11/2019 XR bone survey: New round smoothly marginated lytic lesions within the right humerus and within the right and left femoral neck. Nonspecific but compatible with monoclonal gammopathy. Read at the [facility]. REVIEW OF SYSTEMS Per HPI and otherwise negative by full review of organ systems. ECOG PERFORMANCE STATUS: 0 PHYSICAL EXAMINATION: Vitals: BP 134/77 Pulse 67 Temp (Src) 98 (Temporal) Resp 16 Ht 5' 2.008 (1.58m) Wt 204 lb 6.4 oz (92.7kg) SpO2 96% BMI 37.38 kg/(m^2). Body surface area is 2.01 meters squared. General:This is an age-appropriate patient in no acute distress. Head: Atraumatic, symmetric with no lesions visible. Eyes: Pupils equally round and reactive to light, extraocular muscles intact. Neck: Supple Mouth: Mucous membranes are moist, no thrush is noted. Lungs: Clear to auscultation bilaterally with no wheezes crackles or rales. Cardiovascular: Regular rate and rhythm with no murmurs or gallops. Neurologic: Nonfocal to gross visualization. Alert and oriented 3. Psychiatric: No evidence of inappropriate anxiety or depression. Skin: No overt rashes wounds or petechiae. ALLERGIES: ALLERGIES No Known Allergies MEDICATIONS: simvastatin (ZOCOR) 40 mg tablet Take 40 mg by mouth daily at bedtime. Calcium Carbonate-Vitamin D3 (OSCAL 500+D) 500 mg(1,250mg) -600 unit chew Take 1 tablet by mouth twice daily. COENZYME G62-V-CNYSLGYLL ORAL Take 2,000 mg by mouth once daily. Cheshire-3 Fatty Acids-Vitamin E (FISH OIL) 1,000 mg cap Take 1 capsule by mouth once daily. ascorbic acid (VITAMIN C) 500 mg tablet Take 1,000 mg by mouth once daily. MULTI-VITAMIN ORAL Take 1 tablet by mouth once daily. cyanocobalamin (VITAMIN B-12) 1,000 mcg Tab Take 1,000 mcg by mouth once daily. 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) Smoldering multiple myeloma (SMM) PAST MEDICAL HISTORY Diagnosis Date BRCA negative Hypercalcemia Hyperparathyroidism (HCC) MGUS (monoclonal gammopathy of unknown significance) Multiple myeloma (HCC) 11/02/2019 PAST SURGICAL HISTORY Procedure Laterality Date EXPLORE PARATHYROID GLANDS HYSTERECTOMY HX 2004 BSO as well, on HRT TONSILLECTOMY HX Social History Tobacco Use Smoking status: Never Smoker Smokeless tobacco: Never Used Vaping Use Vaping Use: Never used Substance Use Topics Alcohol use: Yes Alcohol/week: 0.0 standard drinks Comment: Rare socially 2 a year Drug use: No FAMILY HISTORY Problem Relation Age of Onset Cancer Mother Ovarian Cancer Maternal Grandmother Ovarian Heart Father hypertension Courtney Miranda APRN.CNP [place], [place] I spent a total of 30 minutes on the date of the service which included preparing to see the patient, [id number] patient care, completing clinical documentation, obtaining and/or reviewing separately obtained history, performing a medically appropriate examination, counseling and educating the patient/family/caregiver, ordering medications, tests, or procedures, independently interpreting results (not separately reported) and communicating results to the patient/family/caregiver. CC: Dr. Gio Jaimes [id number] [address] documented in this encounter [facility] 09-05-2021 Miscellaneous Notes Patient coming in 09/09/21 for lab only with no orders. Please review and place labs. Thank you, Reta Hunter MLT documented in this encounter [facility] Evaluation note Diagnosis Multiple myeloma not having achieved remission (HCC)- Primary Multiple myeloma, without mention of having achieved remission [facility] Multiple myeloma not having achieved remission (HCC)- Primary Multiple myeloma, without mention of having achieved remission Monoclonal paraproteinemia Smoldering multiple myeloma (SMM) Multiple myeloma, without mention of having achieved remission [facility] 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, without mention of having achieved remission [facility] 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, without mention of having achieved remission [facility] 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, without mention of having achieved remission [facility] Diagnosis Primary hypertension Unspecified essential hypertension [facility] Primary hypertension Unspecified essential hypertension [facility] filed[facility] in [facility] filedocumented in this encounter [facility] Summary Purpose Family History No Family History Records FoundNo Family History Records FoundNo Family History Records FoundNo Family History Records FoundNo Family History Records Found Advance Directives No Advanced Directives Records FoundDocuments on File Type Date Recorded Patient Chief Wellness Officer Expl anation Advance Directive(s) 09/24/2011 4:13 PM Additional Source Comments INFORMATION SOURCE (unrecogn ized section and content) DATE CREATED AUTHOR 08/03/2020 [facility] DATE CREATED AUTHOR AUTHOR'S ORGANIZ ATION 11/01/2021 [facility] DATE CREATED AUTHOR AUTHOR'S ORGANIZ ATION 06/07/2023 [facility] DATE CREATED AUTHOR AUTHOR'S ORGANIZ ATION 08/21/2023 [facility] DATE CREATED AUTHOR AUTHOR'S ORGANIZ ATION 09/24/2023 [facility] Source Comments (unrecognize d section and content) In the event this informatio n is protected by the Federal Confidentiality of Alcohol and Drug Abuse Patient Records regulations: The Federal rules restrict any use of the information to criminally investigate or prosecute any alcohol or drug abuse patient.[facility] the event this information is protected by the Federal Confidentiality of Alcohol and Drug Abuse Patient Records regulations: The Federal rules restrict any use of the information to criminally investigate or prosecute any alcohol or drug abuse patient.[facility] the event this information is protected by the Federal Confidentiality of Alcohol and Drug Abuse Patient Records regulations: The Federal rules restrict any use of the information to criminally investigate or prosecute any alcohol or drug abuse patient.[facility] the event this information is protected by the Federal Confidentiality of Alcohol and Drug Abuse Patient Records regulations: The Federal rules restrict any use of the information to criminally investigate or prosecute any alcohol or drug abuse patient.[facility] the event this information is protected by the Federal Confidentiality of Alcohol and Drug Abuse Patient Records regulations: The Federal rules restrict any use of the information to criminally investigate or prosecute any alcohol or drug abuse patient.[facility] the event this information is protected by the Federal Confidentiality of Alcohol and Drug Abuse Patient Records regulations: The Federal rules restrict any use of the information to criminally investigate or prosecute any alcohol or drug abuse patient.[facility] Reason for Visit (unrecogniz ed section and content) Reason Onset Date Comments Lab Orders 09/05/2021 Reason Comments Smoldering multitple myeloma 4 month fol low up Specialty Diagnoses / Procedures Referred By Contac t Referred To Contact Hematology/Oncology / HEMATOLOGY/ONCOLOGY Diagnoses lmov 01/28 to r/s 6 month lab with phone visit after for results [phone] Procedures EST PATIENT VISIT LEVEL 5 PROVIDER SPECIALTY PHONE CALL Self Dylan Gates MD [facility] [place] [place] [address] Referral ID Status Reason Start Date Expiration Date V isits Requested Visits Authorized [id number] Authorized 02/20/2021 02/20/2022 99 99 Reason Comments Established Patient Specialty Diagnoses / Procedures Referred By Contac t Referred To Contact Hematology/Oncology / HEMATOLOGY/ONCOLOGY Diagnoses 6 mon lab follow up [phone] Procedures PHYS/QHP TELEPHONE EVALUATION 5-10 MIN PROVIDER SPECIALTY PHONE CALL Dylan Gates MD [facility] [address] [place] [phone] Dylan Gates MD [address] [place] [address] [place] [address] Referral ID Status Reason Start Date Expiration Date Visits Re quested Visits Authorized [id number] Denied 05/12/2022 05/03/2023 1 0 Reason Comments Multiple Myeloma Specialty Diagnoses / Procedures Referred By Contac t Referred To Contact Hematology/Oncology / HEMATOLOGY/ONCOLOGY Diagnoses 1 year follow up Procedures OFFICE/OUTPATIENT ESTABLISHED MOD MDM 30-39 MIN EST PATIENT Dylan Gates MD [address] [place] [address] [place] [address] Dylan Gates MD [address] [place] [address] [place] [address] Referral ID Status Reason Start Date Expiration Date Visits Re quested Visits Authorized [id number] Closed 10/17/2022 05/03/2023 1 1 Specialty Diagnoses / Procedures Referred By Contac t Referred To Contact Hematology/Oncology / HEMATOLOGY/ONCOLOGY Diagnoses 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 Procedures PHYS/QHP TELEPHONE EVALUATION 5-10 MIN PROVIDER SPECIALTY PHONE CALL Dylan Gates MD [address] [place] [address] [place] [address] Dylan Gates MD [address] [place] [address] [place] [address] Referral ID Status Reason Start Date Expiration Date Visits Re quested Visits Authorized [id number] Closed 04/10/2023 05/03/2023 1 1 Reason Onset Date Comments Med Refill 05/01/2023 Reason Onset Date Comments Med Refill 08/04/2023 Reason Comments Records faxed Care Teams (unrecognized sec tion and content) Supervisor Road Administrator Relationship Specialty Start Date End Date Gio Jaimes [address] [place] [address], [address] [place] [address] PCP - General Internal Medicine 05/08/10 Dylan Gates MD [address] [place] [address] Physician Hematology/Oncology 11/07/19 Courtney Miranda, AUTOMATION TEST ENGINEER.FIRE INVESTIGATION MANAGER [address] [place] [address] Nurse Practitioner Hematology/Oncology 11/07/19 Bertha Monsalve, RN [address] [place] [address] Specialty Inspector And Unloader Hematology/Oncology 11/07/[address] Relationship Specialty Start Date [facility] [address], [address] [place] [address] PCP - General Internal Medicine 05/08/10 Dylan Gates MD [address] [place] [address] Physician Hematology/Oncology 11/07/19 Courtney Miranda, AUTOMATION TEST ENGINEER.FIRE INVESTIGATION MANAGER [address] [place] [address] Nurse Practitioner Hematology/Oncology 11/07/19 Bertha Monsalve, MANDIE [address] [place] [address] Specialty Inspector And Unloader Hematology/Oncology 11/07/[address] Relationship Specialty Start Date End Date [facility] [address], [address] [place] [address] PCP - General Internal Medicine 05/08/10 Dylan Gates MD [address] [place] [address] Physician Hematology/Oncology 11/07/19 Courtney Miranda, AUTOMATION TEST ENGINEER.FIRE INVESTIGATION MANAGER [address] [place], [place] [id number] Nurse Practitioner Hematology/Oncology 11/07/19 Bertha Monsalve, MANDIE [address] [place] [address] Specialty Inspector And Unloader Hematology/Oncology 11/07/[address] Relationship Specialty Start Date End Date Gio Jaimes [address] [place] [address], [address] [place] [address] PCP - General Internal Medicine 05/08/10 Dylan Gates MD [address] [place] [address] Physician Hematology/Oncology 11/07/19 Courtney Mirnada, AUTOMATION TEST ENGINEER.FIRE INVESTIGATION MANAGER [address] [place] [address] Nurse Practitioner Hematology/Oncology 11/07/19 Bertha Monsalve, MANDIE [address] [place] [address] Specialty Inspector And Unloader Hematology/Oncology 11/07/[address] Relationship Specialty Start Date End Date Gio Jaimes [address] [place] [address], [address] [place] [address] PCP - General Internal Medicine 05/08/10 Dylan Gates MD [address] [place] [address] [place] [address] Physician Hematology/Oncology 11/07/19 Courtney Miranda, AUTOMATION TEST ENGINEER.FIRE INVESTIGATION MANAGER [address] [place] [address] [place] [address] Nurse Practitioner Hematology/Oncology 11/07/[address] Relationship Specialty Start Date End Date Gio Jaimes MD [address] [place] [address], [address] [place] [address] PCP - General Pediatrics 02/02/[address] Relationship Specialty Start Date End Date Gio Jaimes MD [address] [place] [address], [address] [place] [address] PCP - General Pediatrics 02/02/[address] Relationship Specialty Start Date End Date Gio Jaimes [address] [place] [address], [address] [place], [place] [id number] PCP - General Internal Medicine 05/08/10 Dylan Gates MD [address] [place] [address] Physician Hematology/Oncology 11/07/19 Courtney Miranda APRN.[facility] [address] [place] [address] Nurse Practitioner Hematology/Oncology 11/07/19 FOR RECORDS PERTAINING TO PATIENTS WHO ARE OR HAVE BEEN ENROLLED IN A CHEMICAL DEPENDENCY/SUBSTANCEABUSE PROGRAM, SOME INFORMATION MAY BE OMITTED. This clinical summary was aggregated from multiple sources. Caution should be exercised in using it in the provision of clinical care. This summary normalizes information from multiple sources, and as a consequence, information in this document may materially change the coding, format and clinical context of patient data. In addition, data may be omitted in some cases. CLINICAL DECISIONS SHOULD BE BASED ON THE PRIMARY CLINICAL RECORDS. [facility]. provides no warranty or guarantee of the accuracy or completeness of information in this document.
[2024-02-29 08:56] LABS: Basophils Absolute Auto 0.1 10^3/uL (0.0-0.1); Basophils Percent Auto 1.2 % (0.2-2.0); Eosinophils Absolute Auto 0.3 10^3/uL (0.0-0.7); Eosinophils Percent Auto 3.9 % (0.9-7.0); Hematocrit 42.1 % (36.0-48.0); Hemoglobin 13.5 g/dL (12.0-16.0); Immature Granulocytes Abs Auto 0.02 10^3/uL (0.00-0.03); Immature Granulocytes Pct Auto 0.3 % (0.0-0.5); Lymphocytes Absolute Auto 2.8 10^3/uL (1.2-3.8); Lymphocytes Percent Auto 37.6 % (20.5-60.0); Mean Corpuscular HGB Conc 32.1 g/dL (29.9-35.2); Mean Corpuscular Hemoglobin 30.3 pg (26.7-34.0); Mean Corpuscular Volume 94.4 fL (81.0-99.0); Mean Platelet Volume 10.3 fL (9.5-13.5); Monocytes Absolute Auto 0.5 10^3/uL (0.3-0.8); Neutrophils Absolute Auto 3.8 10^3/uL (1.4-6.5); Platelet Count 233 10^3/uL (150-450); Red Blood Count 4.46 10^6/uL (4.20-5.40); Red Cell Distribution Width 13.1 % (11.0-15.0); White Blood Count 7.5 10^3/uL (4.0-11.0)
[2024-02-29 09:21] LABS: Alanine Aminotransferase 36 U/L (14-59); Albumin Globulin Ratio 0.7; Albumin Level 3.4 g/dL (3.4-5.0); Alkaline Phosphatase 71 U/L (46-116); Anion Gap 11.5; Aspartate Amino Transferase 22 U/L (15-37); BUN Creatinine Ratio 17.2; Bilirubin Total 0.4 mg/dL (0.2-1.0); Calcium 8.5 mg/dL (8.5-10.1); Carbon Dioxide 27.8 mmol/L (21.0-32.0); Chloride 104 mmol/L (98-107); Estimated GFR (African America >60 (>=60 mL/min/1.73m^2); Estimated GFR (Non-African Ame 57 (>=60 mL/min/1.73m^2); Glucose 106 mg/dL (74-106); Lactate Dehydrogenase 140 U/L (81-234); Potassium 4.3 mmol/L (3.5-5.1); Sodium 139 mmol/L (136-145); Total Protein 8.4 g/dL (6.4-8.2)
[2024-03-01 14:10] LABS: Albumin 3.9 g/dL (2.9-4.4); Alpha-1-Globulin 0.2 g/dL (0.0-0.4); Alpha-2-Globulin 0.7 g/dL (0.4-1.0); Free Lambda Lt Chains,S 6.6 mg/L (5.7-26.3); Gamma Globulin 2.1 g/dL (0.4-1.8); Immunoglobulin A, Qn, Serum 63 mg/dL (87-352); Immunoglobulin G, Qn, Serum 2171 mg/dL (586-1602); Immunoglobulin M, Qn, Serum 31 mg/dL (26-217); Kappa/Lambda Ratio,S 1.82 (0.26-1.65); Protein, Total 7.8 g/dL (6.0-8.5)
== END 2024-02-29 08:19 | disposition home or self-care (01) ==
LOC: LAB 08:18
PROVIDERS: PCP Internal Medicine; Visit Provider Internal Medicine Hematology & Oncology
DX: C90.00 Multiple myeloma not having achieved remission (principal)
CPT/HCPCS: 36415; 80053; 82784; 82785; 83521; 83615; 84155; 84165; 85025

== ENCOUNTER 2024-03-08 07:41 | Outpatient (RCR) | payer OTHER, SELFPAY | END 2024-03-24 08:48 | disposition home or self-care (01) | LOC: HEMC 07:41 | PROVIDERS: PCP Internal Medicine; Visit Provider Internal Medicine Hematology & Oncology | DX: C90.00 Multiple myeloma not having achieved remission (principal); Z90.710 Acquired absence of both cervix and uterus ==

== ENCOUNTER 2024-06-10 07:05 | Outpatient (OUT) | payer BC, SELFPAY ==
--- OUTSIDE RECORDS SUMMARY | 2024-06-10 07:07 | XMS_ITS | CCD ---
Author Organization [facility] Care Team Providers Care Referral And Information Aide Name Role Phone Gio Jaimes Primary Care Provider Kody BURCH, Dylan Unavailable Ruben SENIOR IT SECURITY ANALYST.PAULIE, Courtney Unavailable Bello LOCKWOOD, Bertha Unavailable HIESTGENET, DR GIO Simon Consulting Unavailable BENITO, DR GIO Quiroz Admitting Unavailable BENITO, DR GIO Quiroz Attending Unavailable TOWNSEND, DR LESLYE Calvert Consulting Unavailable HIESTAND, DR GIO Simon Admitting Unavailable HIESTAND, DR GIO Simon Primary Care Unavailable HIESTGENET, DR GIO Simon Attending Unavailable HIESTAND, DR GIO Simon Consulting Unavailable Gio Jaimes Primary Care Provider Kody BURCH, Dylan Unavailable Ruben SENIOR IT SECURITY ANALYST.Iris APODACAy Unavailable Bello LOCKWOOD, Bertha Unavailable Gio Jaimes Primary Care Provider Gio Jaimes MD Primary Care Provider DYLAN GATES Referring Unavailable GIO JAIMES Primary Care Unavailabl e HYLILIA, DYLAN Referring Unavailable DARIOESTGENET, GIO ROSALES Primary Care UnavailDYLAN Marsh Attending Unavailable GIO JAIMES Primary Care Unavailabl e HIESTGIO DE LEÓN Primary Care Unavailkaterin e KODY, DYLAN Referring Unavailable DARIOESTGENET, GIO ROSALES Primary Care UnavailDYLAN Marsh Attending Unavailable AUDREY CARDENAS Attending Unavailable GIO JAIMES Referring Unavailable GIO JAIMES Care Unavailable GIO JAIMES Attending Unavailable GIO JAIMES Referring Unavailable GIO JAIMES Primary Care Unavailable Medications Current Medications Medication Drug Class(es) Dates Sig (Normalized) Sig (Original) amLODIPine 2.5 mg oral tablet (13 sources) Dihydropyridine Calcium Channel Jamel Start: 06-05-2023 End: 06-07-2024 take 1 tablet by mouth in the morning amLODIPine (NORVASC) 2.5 mg tablet Indications: Primary hypertension Take 1 tablet (2.5 mg total) by mouth in the morning. 90 tablet 3 06/08/2024 Active Start: 05-01-2023 take 1 tablet by [...] 30 tablet 0 04/06/2023 05/01/2023 Discontinued (Reorder) ascorbic acid 1000 mg oral tablet (14 sources) Vitamin C take 1 tablet by nicholas th in the morning ascorbic acid, vitamin C, (VITAMIN C) 1000 mg tablet Take 1 tablet (1,000 mg total) by mouth in the morning. Active take 2 tablets by mouth once ben ly ascorbic acid, vitamin C, (VITAMIN C) 500 mg tablet Take 1,000 mg by mouth once daily. 0 Active Comment on above: Take 1,000 mg by nicholas th once daily. atorvastatin 20 mg oral tablet (3 sources) HMG-CoA Reductase Inhibitor Start: 4 End: 5 take 1 tablet by mouth in the morning atorvastatin (LIPITOR) 20 mg tablet Take 1 tablet (20 mg total) by mouth in the morning. 90 tablet 3 06/08/2024 Active b complex vitamins capsule (8 sources) take 1 capsule by mouth in the morning b complex vitamins capsule Take 1 capsule by mouth in the morning. Active take 1 capsule by mouth in the m orning b complex vitamins capsule Take 1 capsule by mouth in the morning. 0 Active Doxylamine (1 source) doxylamine succi luis (UNISOM, DOXYLAMINE, ORAL) Take by mouth. 0 Active losartan potassium 50 mg oral tablet (16 sources) Angiotensin 2 Receptor Jamel Start: End: 5 take 1 tablet by mouth in the morning losartan (COZAAR) 50 mg tablet Indications: Primary hypertension Take 1 tablet (50 mg total) by mouth in the morning. 90 tablet 3 06/08/2024 Active Start: 05-01-2023 take 1 tablet by [...] BEFORE bedtime olopatadine 1 mg/ml ophthalmic solution (8 sources) Histamine-1 Receptor Inhibitor Start: 4 take 1 drop(s) into the eye(s) in the morning olopatadine (PATANOL) 0.1 % ophthalmic solution Indications: Allergic conjunctivitis of both eyes Administer 1 drop to both eyes in the morning and 1 drop before bedtime. 5 mL 1 08/19/2023 Active Start: 07-30-2021 take 1 drop(s) into the eye(s) in the morning olopatadine (PATANOL) 0.1 % ophthalmic solution Indications: Allergic conjunctivitis of both eyes Administer 1 drop to both eyes in the morning and 1 drop before bedtime. 5 mL 1 07/30/2021 Active omega-3 fatty acids-fish oil 300-1,000 mg capsule (8 sources) take 2 capsules by m outh in the morning omega-3 fatty acids-fish oil 300-1,000 mg capsule Take 2 capsules (2 g total) by mouth in the morning. Active take 2 capsules by mouth in the morning omega-3 fatty acids-fish oil 300-1,000 mg capsule Take 2 capsules (2 g total) by mouth in the morning. 0 Active pantoprazole 40 mg delayed release oral tablet (7 sources) Proton Pump Inhibitor Start: 03-22-2024 take 1 tablet by mouth in the morning pantoprazole (PROTONIX) 40 mg EC tablet Take 1 tablet (40 mg total) by mouth in the morning. 30 tablet 2 03/22/2024 Active Start: 02-20-2023 take 1 tablet by nicholas th in the morning pantoprazole (PROTONIX) 40 mg EC tablet Indications: Gastroesophageal reflux disease without esophagitis Take 1 tablet (40 mg total) by mouth in the morning. 30 tablet 1 02/20/2023 Active psyllium 3400 mg powder for oral suspension (8 sources) take 1 dose by mouth three times daily in the morning psyllium (METAMUCIL) powder Take 1 packet by mouth 3 (three) times a day. Takes every morning Active simvastatin 40 mg oral tablet (14 sources) HMG-CoA Reductase Inhibitor Start: 7 End: 4 take 1 tablet by mouth once daily simvastatin (ZOCOR) 40 mg tablet Take 1 tablet (40 mg total) by mouth nightly. 90 tablet 04/11/2024 04/15/2024 Discontinued Comment on above: Take 40 mg by mouth daily at bedtime. UNABLE TO FIND (1 source) UNABLE TO FIND Inject 37-40 Units under the skin every 7 days. Med Name: Semaglutide-Levocarn itine 2.65 mg Active valACYclovir 1000 mg oral tablet (3 sources) Herpesvirus Nucleoside Analog DNA Polymerase Inhibitor, Herpes Simplex Virus Nucleoside Analog DNA Polymerase Inhibitor, Herpes Zoster Virus Nucleoside Analog DNA Polymerase Inhibitor Start: 4 take 2 tablets by mouth in the morning, then take 2 tablets by mouth at bedtime valACYclovir (VALTREX) 1000 mg tablet Take 2 tablets (2,000 mg total) by mouth in the morning and 2 tablets (2,000 mg total) before bedtime. 4 tablet 04/15/2024 Active Start: 04-15-2024 take 2 tablets by mo uth in the morning, then take 2 tablets by mouth at bedtime valACYclovir (VALTREX) 1000 mg tablet Take 2 tablets (2,000 mg total) by mouth in the morning and 2 tablets (2,000 mg total) before bedtime. 4 tablet 04/15/2024 Active Completed/Discontinued Medications Medication Drug Class(es) Dates Sig (Normalized) Sig (Original) calcium carbonate 1250 mg / cholecalciferol 600 unt chewable tablet (14 sources) Vitamin D Start: 10-23-2011 take 1 tablet by mouth twice daily [...] tablet in the evening. Take with meals. Active Comment on above: Take 1 tablet by nicholas th twice daily. COENZYME Z95-V-CINEIUYVY ORAL (6 sources) take 2000 mg by mouth once daily COENZYME V11-B-JAUVSOATL ORAL Indications: Monoclonal paraproteinemia Take 2,000 mg by mouth once daily. 0 Active Comment on above: Take 2,000 mg by nicholas once daily. MULTI-VITAMIN ORAL (6 sources) take 1 tablet by mouth once daily MULTI-VITAMIN ORAL Take 1 tablet by mouth once daily. 0 Active Comment on above: Take 1 tablet by nicholas once daily. [place]-3 Fatty Acids-Vitamin E (FISH OIL) 1,000 mg cap (3 sources) take 1 capsule by mouth once daily [place]-3 Fatty Acids-Vitamin E (FISH OIL) 1,000 mg cap Indications: Monoclonal paraproteinemia Take 1 capsule by mouth once daily. 0 Active Comment on above: Take 1 capsule by mo [facility] once daily. [place]-3 Fatty Acids-Vitamin E 1,000 mg cap (3 sources) take 1 capsule by mouth once daily [place]-3 Fatty Acids-Vitamin E 1,000 mg cap Indications: Monoclonal paraproteinemia Take 1 capsule by mouth once daily. 0 Active Comment on above: Take 1 capsule by mo [facility] once daily. vitamin b12 1 mg oral tablet (6 sources) Vitamin B12 take 1 tablet by mouth once daily cyanocobalamin (VITAMIN B-12) 1,000 mcg tab Take 1,000 mcg by mouth once daily. 0 Active Comment on above: Take 1,000 mcg by mo [facility] once daily. Problems Active Problems Problem Classification Problem Date Documented Date Episodic/Chronic Diabetes mellitus without complication (2 sources) Hyperglycemia; Translations: [Hyperglycemia, unspecified] Onset: 06-07-2024 06-07-2024 Episodic Disorders of lipid metabolism (14 sources) Pure hypercholesterolemia, unspecified; Translations: [Hypercholesterolemia ] Onset: 01-11-2021 Chronic Essential hypertension (7 sources) Essential hypertension; Translations: [Essential (primary) hypertension] Onset: 06-07-2024 05-01-2023 Chronic Multiple myeloma (8 sources) Multiple myeloma; Translations: [Multiple myeloma not having achieved remission] Onset: 11-02-2019 Chronic Neoplasms of unspecified nature or uncertain behavior (19 sources) Immunosecretory disorder; Translations: [Monoclonal gammopathy] Onset: 05-23-2010 05-23-2010 Chronic Other screening for suspected conditions (not mental disorders or infectious disease) (5 sources) Encounter for screening mammogram for malignant neoplasm of breast; Translations: [ENC SCR MAMMO MALIG NEOPLASM BREAST] Onset: 10-28-2021 Episodic Other upper respiratory disease (8 sources) Allergic disposition; Translations: [Other allergic rhinitis] Onset: 12-14-2022 12-14-2022 Chronic Residual codes; unclassified (1 source) Family history of malignant neoplasm of ovary; Translations: [FAM HX MALIGNANT NEOPLASM OVARY] Onset: 10-31-2021 Episodic Unclassified (1 source) Annual Exam Onset: 06-07-2024 Past or Other Problems Problem Classification Problem Date Documented Da te Episodic/Chronic Mood disorders (8 sources) Mood disorders Onset: 05-29-2022 Resolved: 06-07-2024 05-29-2022 Residual codes; unclassified (6 sources) Pain; Translations: [Pain, unspecified] Onset: 03-03-2012 03-03-2012 Episodic Results Test Name Value Interpretation Reference Range Facility [facility] 08-19-2023 [facility] Telephone (HEMASA) ROBERTO RICHTER ([id number]) 1965 F Date Time Provider Department 08/19/23 DYLAN GATES During your visit today, we recorded the following information about you: Vannessa Reis 08/19/2023 2:23 PM Signed Patient called requesting we fax her records to new doctor due to change in insurance. Records faxed to Dr. Low [phone]. Allergies As of Date: 08/19/2023 (No Known [...] tablet by mouth twice daily. - COENZYME P55-M-EGOYANBFB ORAL Take 2,000 mg by mouth once daily. - [place]-3 Fatty Acids-Vitamin E 1,000 mg cap Take [...] Status:Closed by VANNESSA REIS on 08/19/23 Normal [facility] B2 Microglob SerPl-mCncon Usdk-2-Lesxxqdanrova [Mass/Vol] 1.7 ug/mL Normal 0.8-2.4 [facility] Comment on above: Order Comment: Speci men Type: BLOOD SPECIMEN Ordering Facility: [facility] Address: [facility] [address] Result Comment: Beta -2 Microglobulin test is performed using the [employer] immunoturbidimetric method. Results obtained with different methods or kits cannot be used interchangeably. Performed By: #### 1 952-1, 2885-2 #### [facility] CLIA [id number] [address] [facility] [id number] [address] [place] CBC W Auto Differential pane l (Bld)on 04-03-2023 Basophils (Bld) [#/Vol] 0.07 10*3/uL Normal <0.11 [facility] Comment on above: Order Comment: Speci men Type: BLOOD SPECIMEN Ordering Facility: [facility] Address: [address] [place] [address] Performed By: #### 5 7021-8 #### [facility] CLIA [id number] [address] [place] [address]358 Basophils/100 WBC (Bld) 1.0 % Normal [facility] Comment on above: Order Comment: Speci men Type: BLOOD SPECIMEN Ordering Facility: [facility] Address: [address] [place] [address] Performed By: #### 5 7021-8 #### [facility] CLIA [id number] [address] [place] [address] 89353 Differential cell count method Nom (Bld) Auto Normal [facility] Comment on above: Order Comment: Speci men Type: BLOOD SPECIMEN Ordering Facility: [facility] Address: [address] [place] [address] Performed By: #### 5 7021-8 #### [facility] CLIA [id number] [address] [place] [address] 04838 Eosinophils (Bld) [#/Vol] 0.12 10*3/uL Normal <0.46 [facility] Comment on above: Order Comment: Speci men Type: BLOOD SPECIMEN Ordering Facility: [facility] Address: [address] [place] [address] Performed By: #### 5 7021-8 #### [facility] CLIA [id number] [address] [place] [address] 82208 Eosinophils/100 WBC (Bld) 1.8 % Normal [facility] Comment on above: Order Comment: Speci men Type: BLOOD SPECIMEN Ordering Facility: [facility] Address: [address] [place] [address] Performed By: #### 5 7021-8 #### [facility] CLIA [id number] [address] [place] [address] 64185 Erythrocyte distribution width (RBC) [Ratio] 13.2 % Normal 11.5-15.0 [facility] Comment on above: Order Comment: Speci men Type: BLOOD SPECIMEN Ordering Facility: [facility] Address: [address] [place] [address] Performed By: #### 5 7021-8 #### [facility] CLIA [id number] [address] [place] [address] Hematocrit (Bld) [Volume fraction] 42.9 % Normal 36.0-46.0 [facility] Comment on above: Order Comment: Speci men Type: BLOOD SPECIMEN Ordering Facility: [facility] Address: [address] [place] [address] Performed By: #### 5 7021-8 #### [facility] CLIA [id number] [address] [place] [address]13 Hemoglobin (Bld) [Mass/Vol] 13.8 g/dL Normal 11.5-15.5 [facility] Comment on above: Order Comment: Speci men Type: BLOOD SPECIMEN Ordering Facility: [facility] Address: [address] [place] [address] Performed By: #### 5 7021-8 #### [facility] CLIA [id number] [address] [place] [address] 06883 Immature granulocytes (Bld) [#/Vol] 10*3/uL Normal <0.10 [facility] Comment on above: Order Comment: Speci men Type: BLOOD SPECIMEN Ordering Facility: [facility] Address: [address] [place] [address] Performed By: #### 5 7021-8 #### [facility] CLIA [id number] [address] [place] [address] 48196 Immature granulocytes/100 WBC (Bld) 0.3 % Normal [facility] Comment on above: Order Comment: Speci men Type: BLOOD SPECIMEN Ordering Facility: [facility] Address: [address] [place] [address] Performed By: #### 5 7021-8 #### [facility] CLIA [id number] [address] [place] [address] 66605 Lymphocytes (Bld) [#/Vol] 2.18 10*3/uL Normal 1.00-4.00 [facility] Comment on above: Order Comment: Speci men Type: BLOOD SPECIMEN Ordering Facility: [facility] Address: [address] [place] [address] Performed By: #### 5 7021-8 #### [facility] CLIA [id number] [address] [place] [address] 59436 Lymphocytes/100 WBC (Bld) 31.9 % Normal [facility] Comment on above: Order Comment: Speci men Type: BLOOD SPECIMEN Ordering Facility: [facility] Address: [address] [place] [address] Performed By: #### 5 7021-8 #### [facility] CLIA [id number] [address] [place] [address] 18232 MCH (RBC) [Entitic mass] 30.8 pg Normal 26.0-34.0 [facility] Comment on above: Order Comment: Speci men Type: BLOOD SPECIMEN Ordering Facility: [facility] Address: [address] [place] [address] Performed By: #### 5 7021-8 #### [facility] CLIA [id number] [address] [place] [address] 71248 MCHC (RBC) [Mass/Vol] 32.2 g/dL Normal 30.5-36.0 [facility] Comment on above: Order Comment: Speci men Type: BLOOD SPECIMEN Ordering Facility: [facility] Address: [address] [place] [address] Performed By: #### 5 7021-8 #### [facility] CLIA [id number] [address] [place] [address] 16629 MCV (RBC) [Entitic vol] 95.8 fL Normal 80.0-100.0 [facility] Comment on above: Order Comment: Speci men Type: BLOOD SPECIMEN Ordering Facility: [facility] Address: [address] [place] [address] Performed By: #### 5 7021-8 #### [facility] CLIA [id number] [address] [place] [address] 56945 Monocytes (Bld) [#/Vol] 0.50 10*3/uL Normal <0.87 [facility] Comment on above: Order Comment: Speci men Type: BLOOD SPECIMEN Ordering Facility: [facility] Address: [address] [place] [address] Performed By: #### 5 7021-8 #### [facility] CLIA [id number] [address] [place] [address] 21630 Monocytes/100 WBC (Bld) 7.3 % Normal [facility] Comment on above: Order Comment: Speci men Type: BLOOD SPECIMEN Ordering Facility: [facility] Address: [address] [place] [address] Performed By: #### 5 7021-8 #### [facility] CLIA [id number] [address] [place] [address] 02826 Neutrophils (Bld) [#/Vol] 3.94 10*3/uL Normal 1.45-7.50 [facility] Comment on above: Order Comment: Speci men Type: BLOOD SPECIMEN Ordering Facility: [facility] Address: [address] [place] [address] Performed By: #### 5 7021-8 #### [facility] CLIA [id number] [address] [place] [address] 70212 Neutrophils/100 WBC (Bld) 57.7 % Normal [facility] Comment on above: Order Comment: Speci men Type: BLOOD SPECIMEN Ordering Facility: [facility] Address: [address] [place] [address] Performed By: #### 5 7021-8 #### [facility] CLIA [id number] [address] [place] [address] Nucleated RBC (Bld) [#/Vol] 10*3/uL Normal <0.01 [facility] Comment on above: Order Comment: Speci men Type: BLOOD SPECIMEN Ordering Facility: [facility] Address: [address] [place] [address] Performed By: #### 5 7021-8 #### [facility] CLIA [id number] [address] [place] [address] 42750 Nucleated RBC/100 WBC (Bld) [Ratio] 0.0 /100 WBC Normal [facility] Comment on above: Order Comment: Speci men Type: BLOOD SPECIMEN Ordering Facility: [facility] Address: [address] [place] [address] Performed By: #### 5 7021-8 #### [facility] CLIA [id number] [address] [place] [address] 38060 Platelet mean volume (Bld) [Entitic vol] 10.3 fL Normal 9.0-12.7 [facility] Comment on above: Order Comment: Speci men Type: BLOOD SPECIMEN Ordering Facility: [facility] Address: [address] [place] [address] Performed By: #### 5 7021-8 #### [facility] CLIA [id number] [address] [place] [address] 10944 Platelets (Bld) [#/Vol] 213 10*3/uL Normal 150-400 [facility] Comment on above: Order Comment: Speci men Type: BLOOD SPECIMEN Ordering Facility: [facility] Address: [address] [place] [address] Performed By: #### 5 7021-8 #### [facility] CLIA [id number] [address] [place] [address] 50166 RBC (Bld) [#/Vol] 4.48 10*6/uL Normal 3.90-5.20 [facility] Comment on above: Order Comment: Speci men Type: BLOOD SPECIMEN Ordering Facility: [facility] Address: [address] [place] [address] Performed By: #### 5 7021-8 #### [facility] CLIA [id number] [address] [place] [address] 08622 WBC (Bld) [#/Vol] 6.83 10*3/uL Normal 3.70-11.00 [facility] Comment on above: Order Comment: Speci men Type: BLOOD SPECIMEN Ordering Facility: [facility] Address: [address] [place] [address] Performed By: #### 5 7021-8 #### [facility] CLIA [id number] [address] [place] [address] 06036 Calcium.ionized [Moles/Vol]o n 04-03-2023 Calcium.ionized (Bld) [Mass/Vol] 1.19 mmol/L Normal 1.08-1.30 [facility] Comment on above: Order Comment: Speci men Type: BLOOD SPECIMEN Ordering Facility: [facility] Address: [address] [place] [address] Performed By: #### 1 995-0 #### [facility] [place] [id number] [address] [place] [address] [place] Calcium.ionized adjusted to pH 7.4 (Bld) [Moles/Vol] 1.19 mmol/L Normal 1.08-1.30 [facility] Comment on above: Order Comment: Speci men Type: BLOOD SPECIMEN Ordering Facility: [facility] Address: [address] [place] [address] Performed By: #### 1 995-0 #### [facility] [place] [id number] [address] [place] [address] [place] Comprehensive metabolic 2000 panelon 04-03-2023 Albumin [Mass/Vol] 4.5 g/dL Normal 3.9-4.9 [facility] Comment on above: Order Comment: Speci men Type: BLOOD SPECIMEN Ordering Facility: [facility] Address: [address] [place] [address] Performed By: #### K LFRS #### [facility] CLIA [id number] [address] [place] [address] [place] ALP [Catalytic activity/Vol] 67 U/L Normal 34-123 [facility] Comment on above: Order Comment: Speci men Type: BLOOD SPECIMEN Ordering Facility: [facility] Address: [address] [place] [address] Performed By: #### K LFRS #### [facility] CLIA [id number] [address] [place] [address] [place] ALT [Catalytic activity/Vol] 24 U/L Normal 7-38 [facility] Comment on above: Order Comment: Speci men Type: BLOOD SPECIMEN Ordering Facility: [facility] Address: [address] [place] [address] Performed By: #### K LFRS #### [facility] CLIA [id number] [address] [place] [address] [place] Anion gap [Moles/Vol] 9 mmol/L Normal 9-18 [facility] Comment on above: Order Comment: Speci men Type: BLOOD SPECIMEN Ordering Facility: [facility] Address: [address] [place] [address] Performed By: #### K LFRS #### [facility] CLIA [id number] [address] [place] [address] [place] AST [Catalytic activity/Vol] 19 U/L Normal 13-35 [facility] Comment on above: Order Comment: Speci men Type: BLOOD SPECIMEN Ordering Facility: [facility] Address: [address] [place] [address] Performed By: #### K LFRS #### [facility] CLIA [id number] [address] [place] [id number] [place] Bilirubin [Mass/Vol] 0.3 mg/dL Normal 0.2-1.3 [facility] Comment on above: Order Comment: Speci men Type: BLOOD SPECIMEN Ordering Facility: [facility] Address: [address] [place] [address] Performed By: #### K LFRS #### [facility] CLIA [id number] [address] [place] [address] [place] Calcium [Mass/Vol] 9.1 mg/dL Normal 8.5-10.2 [facility] Comment on above: Order Comment: Speci men Type: BLOOD SPECIMEN Ordering Facility: [facility] Address: [address] [place] [address] Performed By: #### K LFRS #### [facility] CLIA [id number] [address] [place] [address] [place] Chloride [Moles/Vol] 104 mmol/L Normal 97-105 [facility] Comment on above: Order Comment: Speci men Type: BLOOD SPECIMEN Ordering Facility: [facility] Address: [address] [place] [address] Performed By: #### K LFRS #### [facility] CLIA [id number] [address] [place] [address] [place] CO2 [Moles/Vol] 27 mmol/L Normal 22-30 [facility] Comment on above: Order Comment: Speci men Type: BLOOD SPECIMEN Ordering Facility: [facility] Address: [address] [place] [address] Performed By: #### K LFRS #### [facility] CLIA [id number] [address] [place] [address] [place] Creatinine [Mass/Vol] 0.77 mg/dL Normal 0.58-0.96 [facility] Comment on above: Order Comment: Speci men Type: BLOOD SPECIMEN Ordering Facility: [facility] Address: [address] [place] [address] Performed By: #### K LFRS #### [facility] CLIA [id number] [address] [place] [address] [place] Creatinine and Glomerular filtration rate.predicted panel (S/P/Bld) 89 mL/min/1.73m??? Normal >=60 [facility] Comment on above: Order Comment: Diana vences Type: BLOOD SPECIMEN Ordering Facility: [facility] Address: [address] [place] [address] Result Comment: Dorota mated Glomerular Filtration Rate [...] GFR. Performed By: #### K LFRS #### [facility] CLIA [id number] [address] [place] [address] [place] Glucose [Mass/Vol] 108 mg/dL High 74-99 [facility] Comment on above: Order Comment: Diana vences Type: BLOOD SPECIMEN Ordering Facility: [facility] Address: [address] [place] [address] Result Comment: The [place] [employer] (ADA) provides guidance for cutoff [...] Standards of Medical Care in Diabetes 2016, [place] [employer]. Diabetes Care. 2016.39(Suppl 1). Performed By: #### K LFRS #### [facility] CLIA [id number] [facility] [place] [address] [place] Potassium [Moles/Vol] 4.4 mmol/L Normal 3.7-5.1 [facility] Comment on above: Order Comment: Speci men Type: BLOOD SPECIMEN Ordering Facility: [facility] Address: [address] [place] [address] Performed By: #### K LFRS #### [facility] CLIA [id number] [address] [place] [address] [place] Protein [Mass/Vol] 8.5 g/dL High 6.3-8.0 [facility] Comment on above: Order Comment: Speci men Type: BLOOD SPECIMEN Ordering Facility: [facility] Address: [address] [place] [address] Performed By: #### K LFRS #### [facility] CLIA [id number] [address] [place] [address] [place] Sodium [Moles/Vol] 140 mmol/L Normal 136-144 [facility] Comment on above: Order Comment: Speci men Type: BLOOD SPECIMEN Ordering Facility: [facility] Address: [address] [place] [address] Performed By: #### K LFRS #### [facility] CLIA [id number] [address] [place] [address] [place] Urea nitrogen [Mass/Vol] 15 mg/dL Normal 7-21 [facility] Comment on above: Order Comment: Speci men Type: BLOOD SPECIMEN Ordering Facility: [facility] Address: [address] [place] [address] Performed By: #### K LFRS #### [facility] CLIA [id number] [address] [place] [address] [place] IMMUNOFIXATION SCREEN, SERUM on 04-03-2023 INTERPRETATION ([facility]) Atypical restricted bands are present in the IgG and kappa regions. Consistent with IgG kappa monoclonal gammopathy. Normal [facility] Comment on above: Order Comment: Speci men Type: BLOOD SPECIMEN Ordering Facility: [facility] Address: [address] [place] [address] Performed By: #### 1 952-, 2885-2 #### [facility] CLIA [id number] [address] [place] [address] [place] MPA RESULT M protein is present. Abnormal No M p rotein is identified. [facility] Comment on above: Order Comment: Speci men Type: BLOOD SPECIMEN Ordering Facility: [facility] Address: [address] [place] [address] Performed By: #### 1 952-, 288- #### [facility] CLIA [id number] [address] [place] [address] [place] STAFF REVIEW (MPA) Reviewed by Aretha Pratt M.D., Ph.D Normal [facility] Comment on above: Order Comment: Speci men Type: BLOOD SPECIMEN Ordering Facility: [facility] Address: [address] [place] [address] Performed By: #### 1 95-, 28809-02 #### [facility] CLIA [id number] [address] [place] [address] [place] IMMUNOGLOBULINS GAMon 2022 IgA [Mass/Vol] 57 mg/dL Low 70-400 [facility] Comment on above: Order Comment: Speci men Type: BLOOD SPECIMEN Ordering Facility: [facility] Address: [address] [place] [address] Performed By: #### S ERIMM #### [facility] CLIA [id number] [address] [place] [address] [place] IgG [Mass/Vol] 2350 mg/dL High 700-1600 [facility] Comment on above: Order Comment: Speci men Type: BLOOD SPECIMEN Ordering Facility: [facility] Address: [address] [place] [address] Performed By: #### S ERIMM #### [facility] CLIA [id number] [address] [place] [address] [place] IgM [Mass/Vol] 26 mg/dL Low 40-230 [facility] Comment on above: Order Comment: Speci men Type: BLOOD SPECIMEN Ordering Facility: [facility] Address: [address] [place] [address] Performed By: #### S JAMA #### [facility] CLIA [id number] [facility] [place] [address] [place] KAPPA/DYER,FREE,SERon 2022 Immunoglobulin light chains.kappa.free (S) [Mass/Vol] 11.7 mg/L Normal 3.3-19.4 [facility] Comment on above: Order Comment: Speci men Type: BLOOD SPECIMEN Ordering Facility: [facility] Address: [address] [place] [address] Result Comment: Rare ly, increased serum free light chains levels may not be detected or accurately quantified due to prozone phenomenon or in high viscosity samples using this immunoturbidimetric assay. Correlation with other laboratory results and clinical findings is recommended. The Quail Free Light Chain was performed using the [employer] immunoturbidimetric method. Result obtained with different assay methods or kits cannot be used interchangeably. Performed By: #### K LFRS #### [facility] CLIA [id number] [address] [place] [address] [place] Immunoglobulin light chains.kappa/Immunog lobulin light chains.lambda (S) [Mass ratio] 1.80 High 0.26-1.65 [facility] Comment on above: Order Comment: Speci men Type: BLOOD SPECIMEN Ordering Facility: [facility] Address: [address] [place] [address] Performed By: #### K LFRS #### [facility] CLIA [id number] [address] [place] [address] [place] Immunoglobulin light chains.lambda.free [Mass/Vol] 6.5 mg/L Normal 5.7-26.3 [facility] Comment on above: Order Comment: Speci men Type: BLOOD SPECIMEN Ordering Facility: [facility] Address: [address] [place] [address] Result Comment: Rare ly, increased serum free [...] interchangeably. Performed By: #### K LFRS #### [facility] CLIA [id number] [address] [place] [address] [place] LDH SerPl-cCncon 04-03-2023 LDH [Catalytic activity/Vol] 183 U/L Normal 135-214 [facility] Comment on above: Order Comment: Speci vangie Type: BLOOD SPECIMEN Ordering Facility: [facility] Address: [address] [place] [address] Result Comment: Hemo lysis present. The origin [...] indicated. Performed By: #### K LFRS #### [facility] CLIA [id number] [address] [place] [address] [place] PROTEIN ELECTROPHORESIS SERU M (P)on 04-03-2023 Albumin [Mass/Vol] 4.11 g/dL Normal 3.43-5.41 [facility] Comment on above: Order Comment: Diana vences Type: BLOOD SPECIMEN Ordering Facility: [facility] Address: [address] [place] [address] Performed By: #### 1 952-1, 2885-2 #### [facility] CLIA [id number] [address] [place] [address] [place] Alpha 1 globulin Elph [Mass/Vol] 0.27 g/dL Normal 0.18-0.43 [facility] Comment on above: Order Comment: Speci men Type: BLOOD SPECIMEN Ordering Facility: [facility] Address: [address] [place] [address] Performed By: #### 1 952-1, 2885-2 #### [facility] CLIA [id number] [address] [place] [address] [place] Alpha 2 globulin Elph [Mass/Vol] 0.62 g/dL Normal 0.42-0.98 [facility] Comment on above: Order Comment: Speci men Type: BLOOD SPECIMEN Ordering Facility: [facility] Address: [address] [place] [address] Performed By: #### 1 952-1, 288-2 #### [facility] CLIA [id number] [address] [place] [address] [place] Beta globulin Elph [Mass/Vol] 0.74 g/dL Normal 0.61-1.17 [facility] Comment on above: Order Comment: Speci men Type: BLOOD SPECIMEN Ordering Facility: [facility] Address: [address] [place] [address] Performed By: #### 1 952-, 288-2 #### [facility] CLIA [id number] [address] [place] [address] [place] Gamma globulin Elph [Mass/Vol] 2.37 g/dL High 0.53-1.51 [facility] Comment on above: Order Comment: Speci men Type: BLOOD SPECIMEN Ordering Facility: [facility] Address: [address] [place] [address] Performed By: #### 1 952-1, 288-2 #### [facility] CLIA [id number] [address] [place] [address] [place] INTERPRETATION COMMENT FOR PROTEIN ELECTROPHORESIS See separate immunofixation report for characterization of monoclonal gammopathy. Normal [facility] Comment on above: Order Comment: Speci men Type: BLOOD SPECIMEN Ordering Facility: [facility] Address: [address] [place] [address] Performed By: #### 1 952-, 288-2 #### [facility] CLIA [id number] [address] [address] [place] M-PROTEIN LOCATION Gamma Fraction 1 Normal [facility] Comment on above: Order Comment: Speci men Type: BLOOD SPECIMEN Ordering Facility: [facility] Address: [address] [place] [id number] Performed By: #### 1 952-, 2884-2 #### [facility] CLIA [id number] [address] [address] [place] Protein Fractions [Interp] An M protein is identified on protein electrophoresis. Abnormal No definitive M protein is identified on protein electrophoresi s. [facility] Comment on above: Order Comment: Speci men Type: BLOOD SPECIMEN Ordering Facility: [facility] Address: [address] [place] [address] Performed By: #### 1 952-, 2884- #### [facility] CLIA [id number] [address] [place] [address] [place] Protein.monoclonal Elph [Mass/Vol] 1.92 g/dL High <=0.00 [facility] Comment on above: Order Comment: Speci men Type: BLOOD SPECIMEN Ordering Facility: [facility] Address: [address] [place] [id number] Performed By: #### 1 952-, 2884-06 #### [facility] CLIA [id number] [address] [address] [place] SPE STAFF REVIEW Reviewed by Aretha Pratt M.D., Ph.D Normal [facility] Comment on above: Order Comment: Speci men Type: BLOOD SPECIMEN Ordering Facility: [facility] Address: [address] [place] [id number] Performed By: #### 1 952-, 288-2 #### [facility] CLIA [id number] [address] [place] [address] [place] Phosphate SerPl-mCncon 04-03 Phosphate [Mass/Vol] 3.6 mg/dL [facility].7[facility] Comment on above: Order Comment: Speci men Type: BLOOD SPECIMEN Ordering Facility: [facility] Address: [address] [place] [address] Performed By: #### K LFRS #### [facility] [place] [id number] [address] [place] [address] [place] Prot SerPl-mCncon 04-03-2023 Protein [Mass/Vol] 8.1 g/dL High 6.3-8.0 [facility] Comment on above: Order Comment: Speci men Type: BLOOD SPECIMEN Ordering Facility: [facility] Address: [address] [place] [address] Performed By: #### 1 952-1, 2885-2 #### [facility] [place] [id number] [address] [place] [address] [place] Urate SerPl-mCncon Urate [Mass/Vol] 5.6 mg/dL Normal 2.5-6.6 [facility] Comment on above: Order Comment: Speci men Type: BLOOD SPECIMEN Ordering Facility: [facility] Address: [address] [place] [address] Performed By: #### K LFRS #### [facility] [place] [id number] [address] [place] [address] [place] CNOVSPon 10-17-2022 CNOVSP Visit (SP) Office ([place]) ROBERTO RICHTER ([id number]) 1965 F Date Time Provider Department 10/17/22 10:00 AM DYLAN GATES During your visit today, we recorded the following information about you: Temperature Pulse Respiration Blood pressure 97.6 degrees 79/minute 16/minute 152/75 Weight Height 93.5 kg 1.575 m Dylan Gates MD 10/24/2022 7:57 AM Signed NAME: Roberto Richter CLINIC NO.: [id number] DATE OF SERVICE: October 17, 2022 (Kody) Some elements in this clinic note that are critical to medical decision making have been carefully reviewed and included from a prior clinic note dated: May 12, 2022 (Kody) Referring Provider: Dr. Gio Jaimes Additional Clinicians [...] of ovarian cancer Patient was seen by er medical technician . Underwent BRCA 1-2 mutation testing, large [...] or bumps. She will be retiring from [employer] in 11 days. She may need to [...] myeloma, standard (more content not included)... Normal [facility] B2 Microglob SerPl-mCncon Yhnq-5-Kpetvqtqrdtsb [Mass/Vol] 1.4 ug/mL Normal 0.8-2.4 [facility] Comment on above: Order Comment: Diana vences Type: BLOOD SPECIMEN Ordering Facility: [facility] Address: [address] [place] [address] Result Comment: Beta -2 Microglobulin test is performed using the [employer] immunoturbidimetric method. Results obtained with different methods or kits cannot be used interchangeably. Performed By: #### 1 952-1, 2885-2 #### [facility] CLIA [id number] [address] [place] [address] [place] CBC W Auto Differential pane l (Bld)on 10-10-2022 Basophils (Bld) [#/Vol] 0.06 10*3/uL Normal <0.11 [facility] Comment on above: Order Comment: Diana vences Type: BLOOD SPECIMEN Ordering Facility: [facility] Address: [address] [place] [address] Performed By: #### 5 7021-8 #### [facility] CLIA [id number] [address] [place] [address] Basophils/100 WBC (Bld) 0.9 % Normal [facility] Comment on above: Order Comment: Diana vences Type: BLOOD SPECIMEN Ordering Facility: [facility] Address: [address] [place] [address] Performed By: #### 5 7021-8 #### [facility] CLIA [id number] [address] [place] [address] Differential cell count method Nom (Bld) Auto Normal [facility] Comment on above: Order Comment: Sunithai men Type: BLOOD SPECIMEN Ordering Facility: [facility] Address: [address] [place] [address] Performed By: #### 5 7021-8 #### [facility] CLIA [id number] [address] [place] [address] Eosinophils (Bld) [#/Vol] 0.13 10*3/uL Normal <0.46 [facility] Comment on above: Order Comment: Speci men Type: BLOOD SPECIMEN Ordering Facility: [facility] Address: [address] [place] [address] Performed By: #### 5 7021-8 #### [facility] CLIA [id number] [address] [place] [address] Eosinophils/100 WBC (Bld) 1.8 % Normal [facility] Comment on above: Order Comment: Speci men Type: BLOOD SPECIMEN Ordering Facility: [facility] Address: [address] [place] [address] Performed By: #### 5 7021-8 #### [facility] CLIA [id number] [address] [place] [address] Erythrocyte distribution width (RBC) [Ratio] 13.5 % Normal 11.5-15.0 [facility] Comment on above: Order Comment: Speci men Type: BLOOD SPECIMEN Ordering Facility: [facility] Address: [address] [place] [address] Performed By: #### 5 7021-8 #### [facility] CLIA [id number] [address] [place] [address] Hematocrit (Bld) [Volume fraction] 44.7 % Normal 36.0-46.0 [facility] Comment on above: Order Comment: Speci men Type: BLOOD SPECIMEN Ordering Facility: [facility] Address: [address] [place] [address] Performed By: #### 5 7021-8 #### [facility] CLIA [id number] [address] [place] [address] Hemoglobin (Bld) [Mass/Vol] 14.3 g/dL Normal 11.5-15.5 [facility] Comment on above: Order Comment: Speci men Type: BLOOD SPECIMEN Ordering Facility: [facility] Address: [address] [place] [place] [address] Performed By: #### 5 7021-8 #### [facility] CLIA [id number] [address] [place] [address] Immature granulocytes (Bld) [#/Vol] 10*3/uL Normal <0.10 [facility] Comment on above: Order Comment: Speci men Type: BLOOD SPECIMEN Ordering Facility: [facility] Address: [address] [place] [address] Performed By: #### 5 7021-8 #### [facility] CLIA [id number] [address] [place] [address] Immature granulocytes/100 WBC (Bld) 0.1 % Normal [facility] Comment on above: Order Comment: Speci men Type: BLOOD SPECIMEN Ordering Facility: [facility] Address: [address] [place] [address] Performed By: #### 5 7021-8 #### [facility] CLIA [id number] [address] [place] [address] Lymphocytes (Bld) [#/Vol] 2.25 10*3/uL Normal 1.00-4.00 [facility] Comment on above: Order Comment: Speci men Type: BLOOD SPECIMEN Ordering Facility: [facility] Address: [address] [place] [place] [address] Performed By: #### 5 7021-8 #### [facility] CLIA [id number] [address] [place] [address] Lymphocytes/100 WBC (Bld) 32.0 % Normal [facility] Comment on above: Order Comment: Speci men Type: BLOOD SPECIMEN Ordering Facility: [facility] Address: [address] [place] [place] [address] Performed By: #### 5 7021-8 #### [facility] CLIA [id number] [address] [place] [address] MCH (RBC) [Entitic mass] 30.2 pg Normal 26.0-34.0 [facility] Comment on above: Order Comment: Speci men Type: BLOOD SPECIMEN Ordering Facility: [facility] Address: [address] [place] [address] Performed By: #### 5 7021-8 #### [facility] CLIA [id number] [address] [place] [address] MCHC (RBC) [Mass/Vol] 32.0 g/dL Normal 30.5-36.0 [facility] Comment on above: Order Comment: Speci men Type: BLOOD SPECIMEN Ordering Facility: [facility] Address: [address] [place] [address] Performed By: #### 5 7021-8 #### [facility] CLIA [id number] [address] [place] [address] MCV (RBC) [Entitic vol] 94.3 fL Normal 80.0-100.0 [facility] Comment on above: Order Comment: Speci men Type: BLOOD SPECIMEN Ordering Facility: [facility] Address: [address] [place] [address] Performed By: #### 5 7021-8 #### [facility] CLIA [id number] [address] [place] [address] Monocytes (Bld) [#/Vol] 0.52 10*3/uL Normal <0.87 [facility] Comment on above: Order Comment: Speci men Type: BLOOD SPECIMEN Ordering Facility: [facility] Address: [address] [place] [address] Performed By: #### 5 7021-8 #### [facility] CLIA [id number] [address] [place] [address] Monocytes/100 WBC (Bld) 7.4 % Normal [facility] Comment on above: Order Comment: Speci men Type: BLOOD SPECIMEN Ordering Facility: [facility] Address: [address] [place] [place] [address] Performed By: #### 5 7021-8 #### [facility] CLIA [id number] [address] [place] [address] Neutrophils (Bld) [#/Vol] 4.06 10*3/uL Normal 1.45-7.50 [facility] Comment on above: Order Comment: Speci men Type: BLOOD SPECIMEN Ordering Facility: [facility] Address: [address] [place] [place] [address] Performed By: #### 5 7021-8 #### [facility] CLIA [id number] [address] [place] [address] Neutrophils/100 WBC (Bld) 57.8 % Normal [facility] Comment on above: Order Comment: Speci men Type: BLOOD SPECIMEN Ordering Facility: [facility] Address: [address] [place] [place] [address] Performed By: #### 5 7021-8 #### [facility] CLIA [id number] [address] [place] [address] Nucleated RBC (Bld) [#/Vol] 10*3/uL Normal <0.01 [facility] Comment on above: Order Comment: Speci men Type: BLOOD SPECIMEN Ordering Facility: [facility] Address: [address] [place] [address] Performed By: #### 5 7021-8 #### [facility] CLIA [id number] [address] [place] [address] Nucleated RBC/100 WBC (Bld) [Ratio] 0.0 /100 WBC Normal [facility] Comment on above: Order Comment: Speci men Type: BLOOD SPECIMEN Ordering Facility: [facility] Address: [address] [place] [place] [address] Performed By: #### 5 7021-8 #### [facility] CLIA [id number] [address] [place] [address] Platelet mean volume (Bld) [Entitic vol] 10.4 fL Normal 9.0-12.7 [facility] Comment on above: Order Comment: Speci men Type: BLOOD SPECIMEN Ordering Facility: [facility] Address: [address] [place] [place] [address] Performed By: #### 5 7021-8 #### [facility] CLIA [id number] [address] [place] [address] Platelets (Bld) [#/Vol] 226 10*3/uL Normal 150-400 [facility] Comment on above: Order Comment: Speci men Type: BLOOD SPECIMEN Ordering Facility: [facility] Address: [address] [place] [address] Performed By: #### 5 7021-8 #### [facility] CLIA [id number] [address] [place] [address] RBC (Bld) [#/Vol] 4.74 10*6/uL Normal 3.90-5.20 [facility] Comment on above: Order Comment: Speci men Type: BLOOD SPECIMEN Ordering Facility: [facility] Address: [address] [place] [address] Performed By: #### 5 7021-8 #### [facility] CLIA [id number] [address] [place] [address] WBC (Bld) [#/Vol] 7.03 10*3/uL Normal 3.70-11.00 [facility] Comment on above: Order Comment: Speci men Type: BLOOD SPECIMEN Ordering Facility: [facility] Address: [address] [place], [place] [address] Performed By: #### 5 7021-8 #### [facility] CLIA [id number] [address] [place] [address] Calcium.ionized [Moles/Vol]o n 10-10-2022 Calcium.ionized (Bld) [Mass/Vol] 1.22 mmol/L Normal 1.08-1.30 [facility] Comment on above: Order Comment: Speci men Type: BLOOD SPECIMEN Ordering Facility: [facility] Address: [address] [place] [address] Performed By: #### K LFRS #### [facility] CLIA [id number] [address] [place] [address] [place] Calcium.ionized adjusted to pH 7.4 (Bld) [Moles/Vol] 1.21 mmol/L Normal 1.08-1.30 [facility] Comment on above: Order Comment: Speci men Type: BLOOD SPECIMEN Ordering Facility: [facility] Address: [address] [place] [address] Performed By: #### K LFRS #### [facility] CLIA [id number] [address] [place] [address] [place] Comprehensive metabolic 2000 panelon 10-10-2022 Albumin [Mass/Vol] 4.4 g/dL Normal 3.9-4.9 [facility] Comment on above: Order Comment: Speci men Type: BLOOD SPECIMEN Ordering Facility: [facility] Address: [address] [place] [address] Performed By: #### K LFRS #### [facility] CLIA [id number] [address] [place] [address] [place] ALP [Catalytic activity/Vol] 72 U/L Normal 34-123 [facility] Comment on above: Order Comment: Speci men Type: BLOOD SPECIMEN Ordering Facility: [facility] Address: [address] [place] [address] Performed By: #### K LFRS #### [facility] CLIA [id number] [address] [place] [address] [place] ALT [Catalytic activity/Vol] 22 U/L Normal 7-38 [facility] Comment on above: Order Comment: Speci men Type: BLOOD SPECIMEN Ordering Facility: [facility] Address: [address] [place] [address] Performed By: #### K LFRS #### [facility] CLIA [id number] [address] [place] [address] [place] Anion gap [Moles/Vol] 9 mmol/L Normal 9-18 [facility] Comment on above: Order Comment: Speci men Type: BLOOD SPECIMEN Ordering Facility: [facility] Address: [address] [place] [address] Performed By: #### K LFRS #### [facility] CLIA [id number] [address] [place] [address] [place] AST [Catalytic activity/Vol] 21 U/L Normal 13-35 [facility] Comment on above: Order Comment: Speci men Type: BLOOD SPECIMEN Ordering Facility: [facility] Address: [address] [place] [address] Performed By: #### K LFRS #### [facility] CLIA [id number] [address] [place] [address] [place] Bilirubin [Mass/Vol] 0.4 mg/dL Normal 0.2-1.3 [facility] Comment on above: Order Comment: Speci men Type: BLOOD SPECIMEN Ordering Facility: [facility] Address: [address] [place] [address] Performed By: #### K LFRS #### [facility] CLIA [id number] [address] [place] [address] [place] Calcium [Mass/Vol] 9.4 mg/dL Normal 8.5-10.2 [facility] Comment on above: Order Comment: Speci men Type: BLOOD SPECIMEN Ordering Facility: [facility] Address: [address] [place] [address] Performed By: #### K LFRS #### [facility] CLIA [id number] [address] [place] [address] [place] Chloride [Moles/Vol] 102 mmol/L Normal 97-105 [facility] Comment on above: Order Comment: Speci men Type: BLOOD SPECIMEN Ordering Facility: [facility] Address: [address] [place] [address] Performed By: #### K LFRS #### [facility] CLIA [id number] [address] [place] [address] [place] CO2 [Moles/Vol] 27 mmol/L Normal 22-30 [facility] Comment on above: Order Comment: Speci men Type: BLOOD SPECIMEN Ordering Facility: [facility] Address: [address] [place] [address] Performed By: #### K LFRS #### [facility] CLIA [id number] [address] [place] [address] [place] Creatinine [Mass/Vol] 0.76 mg/dL Normal 0.58-0.96 [facility] Comment on above: Order Comment: Speci men Type: BLOOD SPECIMEN Ordering Facility: [facility] Address: [address] [place] [address] Performed By: #### K LFRS #### [facility] CLIA [id number] [address] [place] [address] [place] ESTIMATED GLOMERULAR FILTRATION RATE 91 mL/min/1.73m??? Normal >=60 [facility] Comment on above: Order Comment: Speci men Type: BLOOD SPECIMEN Ordering Facility: [facility] Address: [address] [place] [address] Result Comment: Dorota mated Glomerular Filtration Rate [...] GFR. Performed By: #### K LFRS #### [facility] CLIA [id number] [address] [place] [address] [place] Glucose [Mass/Vol] 104 mg/dL High 74-99 [facility] Comment on above: Order Comment: Speci men Type: BLOOD SPECIMEN Ordering Facility: [facility] Address: [address] [place] [address] Result Comment: The [place] [employer] Association (ADA) provides guidance for cutoff [...] Standards of Medical Care in Diabetes 2016, [place] [employer]. Diabetes Care. 2016.39(Suppl 1). Performed By: #### K LFRS #### [facility] CLIA [id number] [address] [place] [address] [place] Potassium [Moles/Vol] 4.3 mmol/L Normal 3.7-5.1 [facility] Comment on above: Order Comment: Speci men Type: BLOOD SPECIMEN Ordering Facility: [facility] Address: [address] [place] [address] Performed By: #### K LFRS #### [facility] CLIA [id number] [address] [place] [address] [place] Protein [Mass/Vol] 8.6 g/dL High 6.3-8.0 [facility] Comment on above: Order Comment: Speci men Type: BLOOD SPECIMEN Ordering Facility: [facility] Address: [address] [place] [address] Performed By: #### K LFRS #### [facility] CLIA [id number] [address] [place] [address] [place] Sodium [Moles/Vol] 138 mmol/L Normal 136-144 [facility] Comment on above: Order Comment: Speci men Type: BLOOD SPECIMEN Ordering Facility: [facility] Address: [address] [place] [address] Performed By: #### K LFRS #### [facility] CLIA [id number] [address] [place] [address] [place] Urea nitrogen [Mass/Vol] 15 mg/dL Normal 7-21 [facility] Comment on above: Order Comment: Speci men Type: BLOOD SPECIMEN Ordering Facility: [facility] Address: [address] [place] [address] Performed By: #### K LFRS #### [facility] CLIA [id number] [address] [place] IMMUNOFIXATION SCREEN, SERUM on 10-10-2022 INTERPRETATION (MPA) Atypical restricted bands are present in the IgG and kappa regions. Consistent with IgG kappa monoclonal gammopathy. Normal [facility] Comment on above: Order Comment: Speci men Type: BLOOD SPECIMEN Ordering Facility: [facility] Address: [address] [place] [address] Performed By: #### I FESC #### [facility] CLIA [id number] [address] [place] [address] [place] MPA RESULT M protein is present. Abnormal No M p rotein is identified. [facility] Comment on above: Order Comment: Speci men Type: BLOOD SPECIMEN Ordering Facility: [facility] Address: [address] [place] [address] Performed By: #### I FESC #### [facility] CLIA [id number] [address] [place] [address] [place] STAFF REVIEW (MPA) Reviewed by Nuris Tanner MD Normal [facility] Comment on above: Order Comment: Speci men Type: BLOOD SPECIMEN Ordering Facility: [facility] Address: [address] [place] [address] Performed By: #### I FESC #### [facility] CLIA [id number] [address] [place] [address] [place] IMMUNOGLOBULINS GAMon 2022 IgA [Mass/Vol] 63 mg/dL Low 70-400 [facility] Comment on above: Order Comment: Speci men Type: BLOOD SPECIMEN Ordering Facility: [facility] Address: [address] [place] [address] Performed By: #### K LFRS #### [facility] CLIA [id number] [address] [place] [address] [place] IgG [Mass/Vol] 2357 mg/dL High 700-1600 [facility] Comment on above: Order Comment: Speci men Type: BLOOD SPECIMEN Ordering Facility: [facility] Address: [address] [place] [address] Performed By: #### K LFRS #### [facility] CLIA [id number] [address] [place] [address] [place] IgM [Mass/Vol] 33 mg/dL Low 40-230 [facility] Comment on above: Order Comment: Speci men Type: BLOOD SPECIMEN Ordering Facility: [facility] Address: [address] [place] [address] Performed By: #### K LFRS #### [facility] CLIA [id number] [address] [place] [address] [place] KAPPA/DYER,FREE,SERon 2022 Immunoglobulin light chains.kappa.free (S) [Mass/Vol] 11.3 mg/L Normal 3.3-19.4 [facility] Comment on above: Order Comment: Speci men Type: BLOOD SPECIMEN Ordering Facility: [facility] Address: [address] [place], [place] [address] Result Comment: Rare ly, increased serum free light chains levels may not be detected or accurately quantified due to prozone phenomenon or in high viscosity samples using this immunoturbidimetric assay. Correlation with other laboratory results and clinical findings is recommended. The Qu[place] Free Light Chain was performed using the Binding Site Optilite immunoturbidimetric method. Result obtained with different assay methods or kits cannot be used interchangeably. Performed By: #### K LFRS #### [facility] CLIA [id number] [address] [place] [address] [place] Immunoglobulin light chains.kappa/Immunog lobulin light chains.lambda (S) [Mass ratio] 1.66 High 0.26-1.65 [facility] Comment on above: Order Comment: Speci men Type: BLOOD SPECIMEN Ordering Facility: [facility] Address: [address] [place] [address] Performed By: #### K LFRS #### [facility] CLIA [id number] [address] [place] [address] [place] Immunoglobulin light chains.lambda.free [Mass/Vol] 6.8 mg/L Normal 5.7-26.3 [facility] Comment on above: Order Comment: Speci men Type: BLOOD SPECIMEN Ordering Facility: [facility] Address: [address] [place] [address] Result Comment: Rare ly, increased serum free [...] interchangeably. Performed By: #### K LFRS #### [facility] CLIA [id number] [address] [place] [address] [place] LDH SerPl-cCncon 10-10-2022 LDH [Catalytic activity/Vol] 200 U/L Normal 135-214 [facility] Comment on above: Order Comment: Speci men Type: BLOOD SPECIMEN Ordering Facility: [facility] Address: [address] [place] [address] Performed By: #### 1 952-1, 2885-2 #### [facility] CLIA [id number] [address] [place] [address] [place] PROTEIN ELECTROPHORESIS SERU M (P)on 10-10-2022 Albumin [Mass/Vol] 4.28 g/dL Normal 3.43-5.41 [facility] Comment on above: Order Comment: Speci men Type: BLOOD SPECIMEN Ordering Facility: [facility] Address: [address] [place] [address] Performed By: #### 1 952-1, 2885-2 #### [facility] CLIA [id number] [address] [place] [address] [place] Alpha 1 globulin Elph [Mass/Vol] 0.29 g/dL Normal 0.18-0.43 [facility] Comment on above: Order Comment: Speci men Type: BLOOD SPECIMEN Ordering Facility: [facility] Address: [address] [place] [address] Performed By: #### 1 952-1, 288-2 #### [facility] CLIA [id number] [address] [place] [address] [place] Alpha 2 globulin Elph [Mass/Vol] 0.66 g/dL Normal 0.42-0.98 [facility] Comment on above: Order Comment: Speci men Type: BLOOD SPECIMEN Ordering Facility: [facility] Address: [address] [place] [address] Performed By: #### 1 952-, 288-2 #### [facility] CLIA [id number] [address] [place] [address] [place] Beta globulin Elph [Mass/Vol] 0.74 g/dL Normal 0.61-1.17 [facility] Comment on above: Order Comment: Speci men Type: BLOOD SPECIMEN Ordering Facility: [facility] Address: [address] [place] [address] Performed By: #### 1 952-, 288-2 #### [facility] CLIA [id number] [address] [place] [address] [place] Gamma globulin Elph [Mass/Vol] 2.54 g/dL High 0.53-1.51 [facility] Comment on above: Order Comment: Speci men Type: BLOOD SPECIMEN Ordering Facility: [facility] Address: [address] [place] [address] Performed By: #### 1 952-1, 288-2 #### [facility] CLIA [id number] [address] [place] [address] [place] INTERPRETATION COMMENT FOR PROTEIN ELECTROPHORESIS See separate immunofixation report for characterization of monoclonal gammopathy. Normal [facility] Comment on above: Order Comment: Speci men Type: BLOOD SPECIMEN Ordering Facility: [facility] Address: [address] [place] [address] Performed By: #### 1 952-1, 288-2 #### [facility] CLIA [id number] [address] [place] [address] [place] M-PROTEIN LOCATION Gamma Fraction 1 Normal [facility] Comment on above: Order Comment: Speci men Type: BLOOD SPECIMEN Ordering Facility: [facility] Address: [address] [place] [address] Performed By: #### 1 952-1, 288-2 #### [facility] CLIA [id number] [address] [place] [address] [place] Protein Fractions [Interp] An M protein is identified on protein electrophoresis. Abnormal No definitive M protein is identified on protein electrophoresi s. [facility] Comment on above: Order Comment: Speci men Type: BLOOD SPECIMEN Ordering Facility: [facility] Address: [address] [place] [address] Performed By: #### 1 952-1, 288-2 #### [facility] CLIA [id number] [facility] [place] [address] [place] Protein.monoclonal Elph [Mass/Vol] 2.17 g/dL High <=0.00 [facility] Comment on above: Order Comment: Speci men Type: BLOOD SPECIMEN Ordering Facility: [facility] Address: [address] [place] [address] Performed By: #### 1 952-1, 2885-2 #### [facility] CLIA [id number] [address] [place] [id number] [place] SPE STAFF REVIEW Reviewed by MD Frank Pradhan [facility] Comment on above: Order Comment: Speci men Type: BLOOD SPECIMEN Ordering Facility: [facility] Address: [address] [place], [place] [address] Performed By: #### 1 952-1, 2885-2 #### [facility] CLIA [id number] [address] [place] [id number] [place] Phosphate SerPl-mCncon 10-10 Phosphate [Mass/Vol] 3.2 mg/dL Normal 2.7-4.8 [facility] Comment on above: Order Comment: Speci men Type: BLOOD SPECIMEN Ordering Facility: [facility] Address: [address] [place] [address] Performed By: #### 1 952-1, 2885-2 #### [facility] CLIA [id number] [address] [place] [address] [place] Prot SerPl-mCncon 10-10-2022 Protein [Mass/Vol] 8.5 g/dL High 6.3-8.0 [facility] Comment on above: Order Comment: Speci men Type: BLOOD SPECIMEN Ordering Facility: [facility] Address: [address] [place], [place] [address] Performed By: #### 1 952-1, 2885-2 #### [facility] CLIA [id number] [address] [place], [place] [address] [place] Urate SerPl-mCncon Urate [Mass/Vol] 5.8 mg/dL Normal 2.5-6.6 [facility] Comment on above: Order Comment: Speci men Type: BLOOD SPECIMEN Ordering Facility: [facility] Address: [address] [place], [place] [address] Performed By: #### 1 952-1, 2885-2 #### [facility] CLIA [id number] [address] [place], [place] [address] [place] MG MAMM SCREEN 3D OEF CADon 10-28-2021 MG MAMM SCREEN 3D OFE CAD Patient: ROBERTO RICHTER Exam Date: 10/28/2021 : 1965 Gender:F Ordering : DR GIO JAIMES Admission #: [id number] Family : DR THEODORE SANTANA Order #: [id number] CLICK HERE TO VIEW EXAM RADIOLOGY REPORT [...] ovarian cancer at age 49. LOCATION: [facility] BREAST COMPOSITION: Heterogeneously dense,which may obscure small [...] MD on 10/28/2021 at 10:[address] [facility] CBC W Auto Differential pane l (Bld)on 09-09-2021 Abs Immature Gran <0.03 <0.10 k/uL [facility] Basophils (Bld) [#/Vol] 0.07 10*3/uL <0.11 k/uL [facility] Basophils/100 WBC (Bld) 1.0 % [facility] Differential cell count method Nom (Bld) Auto [facility] Eosinophils (Bld) [#/Vol] 0.16 10*3/uL <0.46 k/uL [facility] Eosinophils/100 WBC (Bld) 2.3 % [facility] Erythrocyte distribution width (RBC) [Ratio] 13.2 % 11.5 - 15.0 % [facility] Hematocrit (Bld) [Volume fraction] 41.3 % 36.0 - 46.0 % [facility] Hemoglobin (Bld) [Mass/Vol] 13.3 g/dL 11.5 - 15.5 g/dL [facility] Immature Gran % 0.1 % [facility] Lymphocytes (Bld) [#/Vol] 3.14 10*3/uL 1.00 - 4.00 k/uL [facility] Lymphocytes/100 WBC (Bld) 44.6 % [facility] MCH (RBC) [Entitic mass] 30.2 pg 26.0 - 34.0 pg [facility] MCHC (RBC) [Mass/Vol] 32.2 g/dL 30.5 - 36.0 g/dL [facility] MCV (RBC) [Entitic vol] 93.7 fL 80.0 - 100.0 fL [facility] Monocytes (Bld) [#/Vol] 0.65 10*3/uL <0.87 k/uL [facility] Monocytes/100 WBC (Bld) 9.2 % [facility] Neutrophils (Bld) [#/Vol] 3.01 10*3/uL 1.45 - 7.50 k/uL [facility] Neutrophils/100 WBC (Bld) 42.8 % [facility] Nucleated RBC (Bld) [#/Vol] 10*3/uL <0.01 k/uL [facility] Nucleated RBC/100 WBC (Bld) [Ratio] 0.0 /100 WBC [facility] Platelet mean volume (Bld) [Entitic vol] 10.5 fL 9.0 - 12.7 fL [facility] Platelets (Bld) [#/Vol] 214 10*3/uL 150 - 400 k/uL [facility] RBC (Bld) [#/Vol] 4.41 10*6/uL 3.90 - 5.2 0 m/uL [facility] WBC (Bld) [#/Vol] 7.04 10*3/uL 3.70 - 11. 00 k/uL [facility] Comprehensive metabolic 2000 panelon 09-09-2021 Albumin [Mass/Vol] 4.4 g/dL 3.9 - 4.9 g/dL [facility] ALP [Catalytic activity/Vol] 75 U/L 34 - 123 U/L [facility] ALT [Catalytic activity/Vol] 23 U/L 7 - 38 U/L [facility] Anion gap [Moles/Vol] 11 mmol/L 9 - 18 mmol/L [facility] AST [Catalytic activity/Vol] 24 U/L 13 - 35 U/L [facility] Bilirubin [Mass/Vol] 0.2 mg/dL 0.2 - 1 .3 mg/dL [facility] Calcium [Mass/Vol] 9.7 mg/dL 8.5 - 10. 2 mg/dL [facility] Chloride [Moles/Vol] 101 mmol/L 97 - 10 5 mmol/L [facility] CO2 [Moles/Vol] 28 mmol/L 22 - 30 mmol/L [facility] Creatinine [Mass/Vol] 0.90 mg/dL 0.58 - 0.96 mg/dL [facility] Estimated Glomerular Filtration Rate 75 mL/min/1.73m >=60 mL/min/1.73m [facility] Glucose [Mass/Vol] 92 mg/dL 74 - 99 mg/dL [facility] Potassium [Moles/Vol] 4.1 mmol/L 3.7 - 5.1 mmol/L [facility] Protein [Mass/Vol] 8.1 g/dL High 6.3 - 8.0 g/dL [facility] Sodium [Moles/Vol] 140 mmol/L 136 - 144 mmol/L [facility] Urea nitrogen [Mass/Vol] 16 mg/dL 7 - 21 mg/dL [facility] LD LACTATE DEHYDROon 022 LDH [Catalytic activity/Vol] 194 U/L 135 - 214 U/L [facility] PHOSPHORUS INORGANICon 09-09 Phosphate [Mass/Vol] 4.0 mg/dL 2.7 - 4 .8 mg/dL [facility] URIC ACID BLOODon 09-09-2021 Urate [Mass/Vol] 6.4 mg/dL 2.5 - 6.6 mg/dL [facility] LIPID PROFILEon 08-03-2021 CHOL-HDL RATIO NORM SEE BELOW Normal [facility] Comment on above: Result Comment: 3.3 - 4.4 LOW RISK 4.4 - 7.1 AVERAGE RISK 7.1 - 11.0 MODERATE RISK >11.0 HIGH RISK Performed By: #### L IPID #### [facility] [address] [place] [address] [address] Rome Sharp Cholesterol [Mass/Vol] 171 mg/dL Normal <=200 [facility] Comment on above: Performed By: #### L IPID #### [facility] [address] [place] [address] [address] Rome Sharp Cholesterol in HDL [Mass/Vol] 49 mg/dL Normal 40-60 [facility] Comment on above: Performed By: #### L IPID #### [facility] [address] [place] [address] [address] Rome Sharp Cholesterol in LDL [Mass/Vol] 106.2 mg/dL Normal [facility] Comment on above: Performed By: #### L IPID #### [facility] [address] [place] [address] [address] Rome Sharp Cholesterol.total/Ch olesterol in HDL [Mass ratio] 3.5 {ratio} Normal [facility] Comment on above: Performed By: #### L IPID #### [facility] [address] [place] [address] [address] Rome Sharp HDL NORMAL > or = 60 mg/dl - LO W CARDIOVASCULAR RISK <40 mg/dl - HIGH CARDIOVASCULAR RISK Normal [facility] Comment on above: Performed By: #### L IPID #### [facility] [address] [place] [address] [address] Rome Sharp LDL CALC NORMAL SEE BELOW Normal [facility] Comment on above: Result Comment: <100 mg/dl OPTIMAL 100 - 129 mg/dl NEAR OR ABOVE OPTIMAL 130 - 159 mg/dl BORDERLINE HIGH 160 - 189 mg/dl HIGH >190 mg/dl VERY HIGH Performed By: #### L IPID #### [facility] [address] [place] [address] [address] Rome Sharp Triglyceride [Mass/Vol] 79 mg/dL Normal <=150 [facility] Comment on above: Performed By: #### L IPID #### [facility] [address] [place] [address] [address] Rome Sharp VLDL CALC 15.8 mg/dL Normal [facility] Comment on above: Performed By: #### L IPID #### [facility] [address] [place], [place] [address] Dr. Rome Sharp PROGRESSon 08-02-2020 PROGRESS HNO ID: [id number] Author: Bismark (Rt) Jaison Masters Service: Radiology Author Type: Jeep Driver Type: Progress Notes Filed: 08/02/2020 3:18 PM [...] RT Narayan August 02, 2020 3:17 PM [facility] XR BONE SURVEY ROUTINEon XR BONE SURVEY ROUTINE * * *Final Report* * * DATE OF EXAM: Aug 02 2020 3:39PM X [id number] - XR BONE SURVEY ROUTINE / [...] abnormality. IMPRESSION: No radiographic evidence of myeloma. Iron Worker: PSCKelly Transcribe Date/Time: Aug 02 2020 4:25P Dictated by : DIVYA GUTHRIE MD This examination was interpreted and the report reviewed and electronically signed by: DIVYA GUTHRIE MD on Aug 02 2020 4:27PM EST [id number] Normal [facility] Vital Signs Date Time Vital Sign Value Performing Clinician Facility 06-07-2024 14:34-0500 Body height 158.1 cm Gio Jaimes MD Work Phone: [facility] 06-07-2024 14:34-0500 Body mass index (BMI) [Ratio] 36.03 kg/m2 Gio Jaimes MD Work Phone: [facility] 06-07-2024 14:34-0500 Body weight 90.08 kg Gio Jaimes MD Work Phone: [facility] 06-07-2024 14:34-0500 Diastolic blood pressure 85 mm[Hg] Gio Jaimes MD Work Phone: [facility] 06-07-2024 14:34-0500 Heart rate 82 /min Gio Jaimes MD Work Phone: [facility] 06-07-2024 14:34-0500 Systolic blood pressure 136 mm[Hg] Gio Jaimes MD Work Phone: [facility] 10-17-2022 10:020400 Body height 157.5 cm Dylan Gates MD Work Phone: [facility] 10-17-2022 10:02-0400 Body temperature 97.59 [degF] Dylan Gates MD Work Phone: [facility] 10-17-2022 10:02-0400 Body weight 93.53 kg Dylan Gates MD Work Phone: [facility] 10-17-2022 10:02-0400 Diastolic blood pressure 75 mm[Hg] Dylan Gates MD Work Phone: [facility] 10-17-2022 10:02-0400 Heart rate 79 /min Dylan Gates MD Work Phone: [facility] 10-17-2022 10:02-0400 Respiratory rate 16 /min Dylan Gates MD Work Phone: [facility] 10-17-2022 10:02-0400 SaO2% (BldA) [Mass fraction] 97 % Dylan Gates MD Work Phone: [facility] 10-17-2022 10:02-0400 Systolic blood pressure 152 mm[Hg] Dylan Gates MD Work Phone: [facility] 09-20-2021 14:28-0400 Body height 157.5 cm Courtney Miranda APRN.[employer] Work Phone: [facility] 09-20-2021 14:28-0400 Body temperature 98.01 [degF] Courtney Miranda APRN.[employer] [employer] Work Phone: [facility] 09-20-2021 14:28-0400 Body weight 92.72 kg Courtney Miranda APRN.[employer]RE [employer] Work Phone: [facility] 09-20-2021 14:28-0400 Diastolic blood pressure 77 mm[Hg] Courtney Miranda APRN.[employer] Work Phone: [facility] 09-20-2021 14:28-0400 Heart rate 67 /min Courtney Miranda APRN.[employer] Work Phone: [facility] 09-20-2021 14:28-0400 Respiratory rate 16 /min Courtney Miranda APRN.[employer] Work Phone: [facility] 09-20-2021 14:28-0400 SaO2% (BldA) [Mass fraction] 96 % Courtney Miranda APRN.[employer] Work Phone: [facility] 09-20-2021 14:28-0400 Systolic blood pressure 134 mm[Hg] Courtney Miranda APRN.[employer] Work Phone: [facility] Encounters Encounter Date Encounter Type Care Provider Facility Start: 06-07-2024 End: 06-07-2024 ambulatory [facility] Start: 06-07-2024 Encounter for genera l adult medical examination without abnormal findings [facility] Start: 06-07-2024 End: 06-07-2024 Patient encounter status Gio Jaimes MD Work Phone: [facility] Work Phone: Start: 06-07-2024 End: 06-07-2024 Periodic preventive med est patient 40-64yrs Gio Jaimes MD Work Phone: [facility] Internal [facility] Comment on above: Routine general medi nick examination at a health care facility (Primary Dx); High cholesterol; Primary hypertension; Elevated blood sugar Start: 04-15-2024 End: 04-15-2024 Telephone encounter Vesna Hensley [facility] Start: 04-11-2024 End: 04-11-2024 Refill Vesna Hensley [facility] Comment on above: Primary hypertension Start: 04-08-2024 End: 04-08-2024 Refill Gio Jaimes MD Work Phone: [facility] Internal [facility] Comment on above: Primary hypertension Start: 03-22-2024 End: 03-22-2024 Telephone encounter [facility] Comment on above: Heartburn Start: 09-22-2023 End: 09-22-2023 ambulatory [facility] Start: 09-22-2023 Encounter for gynecological examination (general) (routine) without abnormal findings [facility] Start: 08-19-2023 Telephone encounter Dylan kevin MD Work Phone: Hematology/Oncology Comment on above: Records faxed Start: 08-04-2023 Refill [facility] Comment on above: Primary hypertension Start: 05-01-2023 Refill Maryse Calderon [facility] Comment on above: Primary hypertension Start: 04-10-2023 End: 04-13-2023 ambulatory DYLAN GATES Facility:[facility] Start: 04-10-2023 End: 04-10-2023 ambulatory Dylan Gates MD Work Phone: Hematology/Oncology Comment on above: Smoldering multiple myeloma (SMM) (Primary Dx) Start: 04-10-2023 End: 04-10-2023 Telemedicine consultation with patient Dylan Gates MD Work Phone: [facility] Start: 04-03-2023 End: 04-03-2023 ambulatory [facility] Facility:[facility] Start: 03-09-2023 End: 03-09-2023 ambulatory [facility] Facility:[facility] Start: 10-17-2022 End: 10-17-2022 ambulatory DYLAN KODY Facility:[facility] Start: 10-17-2022 End: 10-17-2022 Office outpatient visit 15 minutes Dylan Gates MD Work Phone: Hematology/Oncology Comment on above: Smoldering multiple myeloma (SMM) (Primary Dx) Start: 10-10-2022 End: 10-10-2022 ambulatory DYLAN GATES Facility:[facility] Start: 05-12-2022 End: 05-12-2022 ambulatory Dylan Gates MD Work Phone: Hematology/Oncology Comment on above: Smoldering multiple myeloma (SMM) (Primary Dx) Start: 05-12-2022 End: 05-12-2022 Telemedicine consultation with patient Dylan Gates MD Work Phone: [facility] Start: 10-28-2021 End: 10-29-[address] LESLYE RODRIGUEZ Facility: Start: 09-20-2021 End: 09-20-2021 ambulatory Courtney Miranda APRN.CNP Work Phone: Hematology/Oncology Comment on above: Multiple myeloma not having achieved remission (HCC) (Primary Dx); Monoclonal paraproteinemia; Smoldering multiple myeloma (SMM) Start: 09-20-2021 End: 09-20-2021 Patient encounter procedure Courtney Miranda APRNIbanTIRE [employer] Work Phone: [facility] Start: 09-05-2021 Telephone encounter Dylan kevin MD Work Phone: Laboratory Medicine Comment on above: Lab Orders Start: 08-03-2021 End: 08-04-[address] GIO JAIMES Facility:[facility] Procedures Date Procedure Procedure Detail Performing Clinician Start: 06-07-2024 Adult depression scr eening assessment Gio Jaimes MD Work Phone: Start: 10-26-2023 Mammography Maryse Mckeonson [facility] Start: 09-22-2023 Follow-up visit Follow-up JIAN CARDENAS Start: 11-05-2022 Mammography Maryserusty Mckeonson [facility] Start: 05-29-2022 Adult depression scr eening assessment Maryse Lundberg [facility] Start: 05-18-2021 Adult depression scr eening assessment Dylan Gates MD Work Phone: Start: 10-20-2019 Mammography Dylan kevin MD Work Phone: Start: 04-29-2019 Lipid 1996 panel - S gonzalez or Plasma Dylan Gates MD Work Phone: Start: 07-26-2018 Colonoscopy Dylan kevin MD Work Phone: Plan of Treatment Date Care Activity Detail Author Start: 07-26-2028 Screening for malign ant neoplasm of colon Colonoscopy [facility] Start: 04-03-2026 Diabetes Screening Diabetes Screenin g [facility] Start: 10-10-2025 DIABETES SCREEN DIABETES SCREEN [facility] Start: 08-02-2025 DTaP,Tdap and Td Vac cines (2 - Td or Tdap) DTaP,Tdap and Td Vaccines (2 - Td or Tdap) [facility] Start: 08-02-2025 Urine microalbumin profile [facility] Start: 06-07-2025 Adult BMI Screening Adult BMI Screen ing [facility] Start: 06-07-2025 Depression Screening Depression Scre ening [facility] Start: 06-07-2025 Tobacco Screening Tobacco Screening [facility] Start: 05-06-2025 DIABET[facility]CREEN [facility] Start: 10-25-2024 Screening for malign ant neoplasm of breast Mammogram [facility] Start: 09-21-2024 Adult BMI Screening Adult BMI Screen ing [facility] Start: 09-20-2024 End: 09-20-2024 Patient encounter procedure 09/20/2024 9:00 AM EDT Office Visit Susy Yaakov Lassen [facility] - [facility] Oncology [address] [place] [address] Audrey Cardenas PA [address] [place] [address] Susy Avina [facility] Start: 09-09-2024 DIABETES SCREEN [facility] Start: 06-07-2024 End: 06-07-2024 Patient encounter procedure 06/07/2024 2:30 PM EST Office Visit [facility] [address] [place] [phone] Gio Jaimes MD [address] [place] [address], [address] [place], [place] [id number] [facility] Start: 06-05-2024 Adult BMI Screening Adult BMI Screen ing [facility] Start: 06-05-2024 Tobacco Screening Tobacco Screening [facility] Start: 04-29-2024 Lipid 1996 panel - S gonzalez or Plasma Lipid Screening [facility] Start: 04-29-2024 Lipid panel Lipid Screening [facility] Start: 04-29-2024 LIPID SCREEN LIPID SCREEN [facility] Start: 04-06-2024 Tobacco Screening Tobacco Screening [facility] Start: 01-03-2024 COVID-19 Vaccine () COVID-19 Vaccine () [facility] Start: 01-03-2024 Influenza vaccination [facility] Start: 12-16-2023 Adult BMI Screening Adult BMI Screen ing [facility] Start: 11-06-2023 Screening for malign ant neoplasm of breast Mammogram [facility] Start: 09-22-2023 End: 09-22-2023 Patient encounter procedure 09/22/2023 10:00 AM EDT Office Visit Susy Yaakov Lassen [facility] - [facility] On[facility] [address] [place] [phone] Audrey Cardenas PA [address] [place] [address] Susy Avina [facility] Start: 06-05-2023 End: 06-05-2023 Patient encounter procedure 06/05/2023 1:30 PM EST Office Visit [facility] [address] [place] [phone] Gio Jaimes MD [address] [place] [address], [address] [place], [place] [phone] [facility] Start: 05-29-2023 Depression Screening Depression Scre [facility] Start: 05-04-2023 Behavioral Health Screening Behavioral Health Screening [facility] Start: 04-18-2023 End: 10-18-2023 [id number] [Mass/volume] in Serum or Plasma B2 MICROGLOBULIN B Lab Routine Smoldering multiple myeloma (SMM) Expected: 04/18/2023 (Approximate), Expires: 10/18/2023 [facility] Work Phone: Comment on above: Expected: 04/18/2023 (Approximate), Expires: 10/18/2023 Start: 04-18-2023 End: 10-18-2023 Calcium.ionized [Moles/volume] in Blood CALCIUM IONIZED BLOOD Lab Routine Smoldering multiple myeloma (SMM) Expected: 04/18/2023 (Approximate), Expires: 10/18/2023 [facility] Work Phone: Comment on above: Expected: 04/18/2023 (Approximate), Expires: 10/18/2023 Start: 04-18-2023 End: 10-18-2023 CBC W Auto Differential panel - Blood CBC + DIFF Lab Routine Smoldering multiple myeloma (SMM) Expected: 04/18/2023 (Approximate), Expires: 10/18/2023 [facility] Work Phone: Comment on above: Expected: 04/18/2023 (Approximate), Expires: 10/18/2023 Start: 04-18-2023 End: 10-18-2023 Comprehensive metabolic 2000 panel - Serum or Plasma COMP METABOLIC PANEL Lab Routine Smoldering multiple myeloma (SMM) Expected: 04/18/2023 (Approximate), Expires: 10/18/2023 [facility] Work Phone: Comment on above: Expected: 04/18/2023 (Approximate), Expires: 10/18/2023 Start: 04-18-2023 End: 06-18-2023 KAPPA/DYER,FREE,SER KAPPA/DYER,FREE,SER Lab Routine Smoldering multiple myeloma (SMM) Expected: 04/18/2023 (Approximate), Expires: 06/18/2023 [facility] Work Phone: Comment on above: Expected: 04/18/2023 (Approximate), Expires: 06/18/2023 Start: 04-18-2023 End: 10-18-2023 Lactate dehydrogenase [Enzymatic activity/volume] in Serum or Plasma LD LACTATE DEHYDRO Lab Routine Smoldering multiple myeloma (SMM) Expected: 04/18/2023 (Approximate), Expires: 10/18/2023 [facility] Work Phone: Comment on above: Expected: 04/18/2023 (Approximate), Expires: 10/18/2023 Start: 04-18-2023 End: 10-18-2023 MONOCLONAL PROTEIN, SERUM (BLOOD) MONOCLONAL PROTEIN, SERUM (BLOOD) Lab Routine Smoldering multiple myeloma (SMM) Expected: 04/18/2023 (Approximate), Expires: 10/18/2023 [facility] Work Phone: Comment on above: Expected: 04/18/2023 (Approximate), Expires: 10/18/2023 Start: 04-18-2023 End: 10-18-2023 Phosphate [Mass/volume] in Serum or Plasma PHOSPHORUS INORGANIC Lab Routine Smoldering multiple myeloma (SMM) Expected: 04/18/2023 (Approximate), Expires: 10/18/2023 [facility] Work Phone: Comment on above: Expected: 04/18/2023 (Approximate), Expires: 10/18/2023 Start: 04-18-2023 End: 10-18-2023 PROTEIN ELECTROPHORESIS SERUM W/INTERP PROTEIN ELECTROPHORESIS SERUM W/INTERP Lab Routine Smoldering multiple myeloma (SMM) Expected: 04/18/2023 (Approximate), Expires: 10/18/2023 [facility] Work Phone: Comment on above: Expected: 04/18/2023 (Approximate), Expires: 10/18/2023 Start: 04-18-2023 End: 10-18-2023 Urate [Mass/volume] in Serum or Plasma URIC ACID BLOOD Lab Routine Smoldering multiple myeloma (SMM) Expected: 04/18/2023 (Approximate), Expires: 10/18/2023 [facility] Work Phone: Comment on above: Expected: 04/18/2023 (Approximate), Expires: 10/18/2023 Start: 01-02-2023 Covid-19 Vaccine ( season) Covid-19 Vaccine () [facility] Start: 01-02-2023 Influenza vaccination C [facility] Start: 11-15-2022 End: 05-18-2023 [id number] [Mass/volume] in Serum or Plasma B2 MICROGLOBULIN B Lab Routine Smoldering multiple myeloma (SMM) Expected: 11/15/2022, Expires: 05/18/2023 [facility] Work Phone: Comment on above: Expected: 11/15/2022 , Expires: 05/18/2023 Start: 11-15-2022 End: 05-18-2023 Calcium.ionized [Moles/volume] in Blood CALCIUM IONIZED BLOOD Lab Routine Smoldering multiple myeloma (SMM) Expected: 11/15/2022, Expires: 05/18/2023 [facility] Work Phone: Comment on above: Expected: 11/15/2022 , Expires: 05/18/2023 Start: 11-15-2022 End: 05-18-2023 CBC W Auto Differential panel - Blood CBC + DIFF Lab Routine Smoldering multiple myeloma (SMM) Expected: 11/15/2022, Expires: 05/18/2023 [facility] Work Phone: Comment on above: Expected: 11/15/2022 , Expires: 05/18/2023 Start: 11-15-2022 End: 05-18-2023 Comprehensive metabolic 2000 panel - Serum or Plasma COMP METABOLIC PANEL Lab Routine Smoldering multiple myeloma (SMM) Expected: 11/15/2022, Expires: 05/18/2023 [facility] Work Phone: Comment on above: Expected: 11/15/2022 , Expires: 05/18/2023 Start: 11-15-2022 End: 05-18-2023 KAPPA/DYER,FREE,SER KAPPA/DYER,FREE,SER Lab Routine Smoldering multiple myeloma (SMM) Expected: 11/15/2022, Expires: 05/18/2023 [facility] Work Phone: Comment on above: Expected: 11/15/2022 , Expires: 05/18/2023 Start: 11-15-2022 End: 05-18-2023 Lactate dehydrogenase [Enzymatic activity/volume] in Serum or Plasma LD LACTATE DEHYDRO Lab Routine Smoldering multiple myeloma (SMM) Expected: 11/15/2022, Expires: 05/18/2023 [facility] Work Phone: Comment on above: Expected: 11/15/2022 , Expires: 05/18/2023 Start: 11-15-2022 End: 05-18-2023 MONOCLONAL PROTEIN, SERUM (BLOOD) MONOCLONAL PROTEIN, SERUM (BLOOD) Lab Routine Smoldering multiple myeloma (SMM) Expected: 11/15/2022, Expires: 05/18/2023 [facility] Work Phone: Comment on above: Expected: 11/15/2022 , Expires: 05/18/2023 Start: 11-15-2022 End: 05-18-2023 Phosphate [Mass/volume] in Serum or Plasma PHOSPHORUS INORGANIC Lab Routine Smoldering multiple myeloma (SMM) Expected: 11/15/2022, Expires: 05/18/2023 [facility] Work Phone: Comment on above: Expected: 11/15/2022 , Expires: 05/18/2023 Start: 11-15-2022 End: 05-18-2023 PROTEIN ELECTROPHORESIS SERUM W/INTERP PROTEIN ELECTROPHORESIS SERUM W/INTERP Lab Routine Smoldering multiple myeloma (SMM) Expected: 11/15/2022, Expires: 05/18/2023 [facility] Work Phone: Comment on above: Expected: 11/15/2022 , Expires: 05/18/2023 Start: 11-15-2022 End: 05-18-2023 Urate [Mass/volume] in Serum or Plasma URIC ACID BLOOD Lab Routine Smoldering multiple myeloma (SMM) Expected: 11/15/2022, Expires: 05/18/2023 [facility] Work Phone: Comment on above: Expected: 11/15/2022 , Expires: 05/18/2023 Start: 05-18-2022 Adult depression screening assessment DEPRESSION SCREENING [facility] Start: 05-04-2022 DEPRESSION ASSESSMENT DEPRESSION ASS ESSMENT [facility] Start: 01-02-2022 Influenza vaccination C [facility] Start: 09-09-2021 End: 09-06-2022 [id number] [Mass/volume] in Serum or Plasma [facility] Work Phone: Comment on above: Expected: 09/09/2021 , Expires: 09/06/2022 Start: 09-09-2021 End: 09-06-2022 CALCIUM IONIZED B [facility] Work Phone: Comment on above: Expected: 09/09/2021 , Expires: 09/06/2022 Start: 09-09-2021 End: 09-06-2022 MONOCLONAL PROTEIN, SERUM (BLOOD) [facility] Work Phone: Comment on above: Expected: 09/09/2021 , Expires: 09/06/2022 Start: 09-09-2021 End: 09-06-2022 PROTEIN ELECTROPHORESIS SERUM W/INTERP [facility] Work Phone: Comment on above: Expected: 09/09/2021 , Expires: 09/06/2022 Start: 07-03-2021 COVID-19 VACCINE (4 - Booster for Moderna series) COVID-19 VACCINE (4 - Booster for Moderna series) [facility] Start: 05-30-2021 COVID-19 VACCINE (4 - Booster for Moderna series) COVID-19 VACCINE (4 - Booster for Moderna series) [facility] Start: 10-19-2020 Mammography [facility] Start: 10-19-2020 Screening for malign ant neoplasm of breast Mammogram Screening [facility] Start: 07-27-2019 Colonoscopy COLONOSCOPY [facility] Start: 07-27-2019 COLORECTAL CANCER SCREENING COLORECTAL CANCER SCREENING [facility] Start: 07-27-2019 Screening for malign ant neoplasm of colon [facility] Start: 07-08-2016 PAP TESTING PAP TESTING [facility] Start: 07-08-2016 Screening for malign ant neoplasm of cervix Pap Testing [facility] Start: 02-13-2016 Administration of varicella zoster vaccine Zoster (Shingles) Vaccine (1 of 2) [facility] Start: 02-13-2016 SHINGRIX VACCINE (1 of 2) ALEX GRIX VACCINE (1 of 2) [facility] Start: 02-13-2016 SHINGRIX VACCINE (2 of 3) ALEX GRIX VACCINE (2 of 3) [facility] Start: 02-02-2014 SHINGRIX VACCINE (1 of 2) ALEX GRIX VACCINE (1 of 2) [facility] Start: 02-02-2009 COLOGUARD (FIT-DNA) COLOGUARD (FIT-D NA) [facility] Start: 02-02-[address] COLONOGRAPHY [facility] Start: 02-02-2009 FECAL OCCULT BLOOD FECAL OCCULT BLOO D [facility] Start: 02-02-2009 Screening for malign ant neoplasm of colon [facility] Start: 02-02-2009 SIGMOIDOSCOPY SIGMOIDOSCOPY [facility] Start: 02-02-1994 HPV TESTING HPV TESTING [facility] Start: 02-02-1994 Screening for malign ant neoplasm of cervix HPV Testing [facility] Start: 02-02-1983 Urine microalbumin profile DTAP,TDAP,TD (1 - Tdap) [facility] Start: 02-02-1982 Adult BMI Follow Up Plan Adult BMI F ollow Up Plan [facility] Start: 02-02-1982 HEPATITIS C SCREENING HEPATITIS C [facility] Start: 02-02-1982 Hepatitis C screening Hepatitis C [facility] Start: 02-02-1982 HIV SCREENING HIV SCREENING [facility] Start: 02-02-1982 HIV screening HIV Screening [facility] Start: 02-02-1970 PNEUMOCOCCAL (1 - PCV) PNEUMOCOCCAL (1 - PCV) [facility] Start: 02-02-1970 Pneumococcal vaccination [facility] Start: 1965 HEPATITIS B (1 of 3 - 3-dose series) HEPATITIS B (1 of 3 - 3-dose series) [facility] End: 06-07-2025 Hemoglobin A1c/Hemoglobin.total in Blood Hemoglobin A1c Lab Routine Routine general medical examination at a health care facility 1 Occurrences starting 06/07/2024 until 06/07/2025 [facility] Comment on above: 1 Occurrences starti ng 06/07/2024 until 06/07/2025 End: 06-07-2025 Lipid panel Lipid panel Lab Routine Routine general medical examination at a health care facility 1 Occurrences starting 06/07/2024 until 06/07/2025 [facility] Comment on above: 1 Occurrences starti ng 06/07/2024 until 06/07/2025 [facility] Immunizations Immunization Date Immunization Notes Care Provider Mily almeida 02-11-2021 influenza virus vaccine, unspecified formulation Dylan Gates MD Work Phone: [facility] 08-17-2020 COVID-19, mRNA, LNP- S, PF, 100mcg/0.5mL Dose Maryse Toño [facility] 07-20-2020 COVID-19, mRNA, LNP- S, PF, 100mcg/0.5mL Dose Maryse Toño [facility] 01-19-2020 influenza virus vaccine, unspecified formulation Courtney Miranda SENIOR IT SECURITY ANALYST.[employer] Work Phone: [facility] 12-19-2015 zoster vaccine, live Courtney sauceda SENIOR IT SECURITY ANALYST.[employer] Work Phone: [facility] 12-19-2015 zoster vaccine, unspecified formulation Maryse Toño [facility] 08-03-2015 tetanus toxoid, redu sujata diphtheria toxoid, and acellular pertussis vaccine, adsorbed Courtney Miranda SENIOR IT SECURITY ANALYST.[employer] Work Phone: [facility] 06-25-2009 influenza virus vaccine, unspecified formulation Courtney Miranda SENIOR IT SECURITY ANALYST.[employer] Work Phone: [facility] 06-25-2009 novel [id number], preservative-free, injectable Courtney Miranda SENIOR IT SECURITY ANALYST.[employer] Work Phone: [facility] Payers Date Payer Category Payer [employer] [facility] - [facility] [id number] 2024 Unknown [id number] 2023 [facility] [id number] 2023 Unknown [id number] 2022 Unknown [id number] 2020 Private Health Insurance [facility] [employer] [id number] 2020-Present [phone] [address] [address] [place] [address] PPO [id number] 2020 Private Health Insurance [id number] 1964 Unknown [id number] 1964 Unknown [id number] 1964 Unknown [id number] 1964 Unknown [id number] 1959 Unknown [id number] Social History Date Type Detail Facility Start: 05-29-2022 Tobacco smoking status NHIS Never smoked tobacco [facility] Start: 03-14-2020 End: 06-07-2024 Alcohol intake Current drinker of alcohol (finding) [facility] Start: 03-14-2020 End: 05-27-2022 Alcohol intake [facility] Start: 07-09-2011 History SDOH Alcohol Comment Rare socially 2 a year [facility] Start: 1965 Sex Assigned At Female [facility] Start: 09-10-2021 End: 09-20-2021 Exposure to SARS-CoV-2 (event) Not sure [facility] Start: 09-20-2021 End: 05-27-2022 Tobacco use panel [facility] Adult Depression Screening Assessment 0 [facility] Start: 10-31-2019 Gender identity Identifies as female gender (finding) [facility] Start: 10-31-2019 Sexual orientation Heterosexual (finding) [facility] Start: 05-29-2022 Tobacco use and exposure Smokeless tobacco non-user [facility] Do you belong to any clubs or organizations such as anabaptism groups, [employer], [email or web address] or athletic groups, or school groups? Yes [facility] Are you now , , , , never or living with a partner? [facility] How often to you hav e a drink containing alcohol? Monthly or less [facility] How many standard dr inks containing alcohol do you have on a typical day? 1 or 2 [facility] How often do you hav e 6 or more drinks on 1 occasion? Never [facility] Do you feel stress - tense, restless, nervous, or anxious, or unable to sleep at night because your mind is troubled all the time - these days [OSQ] To some extent [facility] Start: 11-12-2020 Education 15 [facility] Start: 08-25-2022 Alcohol Comment rarely [facility] Start: 1965 Sex Assigned At Not on file [facility] How hard is it for y ou to pay for the very basics like food, housing, medical care, and heating Not very hard [facility] Start: 12-07-2014 Sex Female (finding) [facility] Clinical Notes 09-05-2021 to 06-07-2024 Gio Jaimes MD - 06/07/2024 2:30 PM ESTTelephone Encounter - MARTY Morel - 04/15/2024 10:32 AM ESTTelephone Encounter - Gio Jaimes MD - 04/15/2024 10:32 AM ESTPatient Instructions Note Date & Type Note Facility 06-07-2024 History of Presen t illness Narrative Subjective Patient ID: Roberto Richter is a 59 y.o. female. Comes in for wellness. Followed by hematology, counts have been stable. She is on semaglutide for weight loss through another provider. She has no major concerns. The following portions of the patient's history were reviewed and updated as appropriate: allergies, current medications, past family history, past medical history, past social history, past surgical history, and problem list. Review of Systems Constitutional: She has lost a little weight with the semaglutide. HENT: Negative for sore throat and trouble swallowing. Eyes: Negative for visual disturbance. Respiratory: Negative for cough and shortness of breath. Cardiovascular: Negative for chest pain and leg swelling. Gastrointestinal: Negative for abdominal pain and blood in stool. Genitourinary: Negative for dysuria and hematuria. Musculoskeletal: She has some aches and pains. Skin: Has a skin lesion on her alex, used Compound W which seemed to make it get bigger. Neurological: Negative for dizziness, light-headedness and headaches. Objective Physical Exam Constitutional: Comments: BP reasonable, weight above ideal target. HENT: Right Ear: Tympanic membrane normal. Left Ear: Tympanic membrane normal. Mouth/Throat: Pharynx: Oropharynx is clear. Eyes: General: No scleral icterus. Pupils: Pupils are equal, round, and reactive to light. Neck: Comments: No thyroid enlargement or neck mass Cardiovascular: Rate and Rhythm: Normal rate and regular rhythm. Heart sounds: No murmur heard. Pulmonary: Effort: Pulmonary effort is normal. Breath sounds: Normal breath sounds. Abdominal: General: There is no distension. Palpations: Abdomen is soft. Tenderness: There is no abdominal tenderness. Musculoskeletal: Right lower leg: No edema. Left lower leg: No edema. Skin: Comments: Raised firm nonpigmented nodule about 1 cm in diameter on her anterior alex, looks like a dermatofibroma. Neurological: General: No focal deficit present. Mental Status: She is alert. Assessment/Plan Health maintenance reviewed. Labs ordered. Up to date on mammogram and colonoscopy screening. The lesion on her leg is large enough that I think removal would be better done through surgery, although it appears benign clinically and can continue to be observed. Routine follow up annually for wellness. Diagnoses and all orders for this visit: Routine general medical examination at a health care facility - Lipid panel; Future - Hemoglobin A1c; Future High cholesterol Primary hypertension - amLODIPine (NORVASC) 2.5 mg tablet; Take 1 tablet (2.5 mg total) by mouth in the morning. - losartan (COZAAR) 50 mg tablet; Take 1 tablet (50 mg total) by mouth in the morning. Elevated blood sugar documented in this encounter [facility] 04-15-2024 Miscellaneous Notes Patient called stating she has a cold sore again and in the past acyclovir has been sent in. She is wanting to know if this could be sent to the pharmacy. Please advise. Valacyclovir script sent to pharmacy. documented in this encounter [facility] 04-15-2024 Telephone encounter Note Patient called stating she has a cold sore again and in the past acyclovir has been sent in. She is wanting to know if this could be sent to the pharmacy. Please advise. [facility] 04-15-2024 Telephone encounter Note Valacyclovir script sent to pharmacy. [facility] 04-11-2024 Miscellaneous Notes Refill request, AWV scheduled for 06/07/24 documented in this encounter [facility] 04-11-2024 Telephone encounter Note Refill request, AWV scheduled for 06/07/24 [facility] 04-08-2024 Miscellaneous Notes Refill request documented in this encounter [facility] 04-08-2024 Telephone encounter Note Refill request [facility] 03-22-2024 Miscellaneous Notes Patient called and would like to start pantoprazole again due to the semaglutide upsetting her stomach. [facility] [place] documented in this encounter [facility] 03-22-2024 Telephone encounter Note Patient called and would like to start pantoprazole again due to the semaglutide upsetting her stomach. [facility] [place] [facility] 08-19-2023 Miscellaneous Notes Patient called requesting we fax her records to new doctor due to change in insurance. Records faxed to Dr. Low [phone]. documented in this encounter [facility] 08-04-2023 Miscellaneous Notes Refill request, patient's insurance changed documented in this encounter [facility] 08-04-2023 Telephone encounter Note Refill request, [facility]'s [facility]01[facility]2023 Miscellaneous Notes Refill request documented in this [facility] 05-01-2023 Telephone encounter Note [facility] 04-10-2023 Note HNO ID: [id number] Author: Dylan Gtaes MD Service: ? Author Type: Physician Type: Progress Notes Filed: 04/10/2023 5:29 PM Note Text: NAME: Roberto Richter CLINIC NO.: [id number] DATE OF SERVICE: April 10, 2023 ([place]) Some elements in this clinic note that are critical to medical decision making have been carefully reviewed and included from a prior clinic note dated: October 17, 2022 ([place]) Referring Provider: Dr. Gio Jaimes Additional Clinicians involved in Roberto Richter's care: VIRTUAL VISIT PROGRESS NOTE This is a virtual visit using [employer] Video Visit. It required patient-provider interaction for the medical decision making as documented below. I have communicated my name and active licensure. The patient's identity and physical location were verified at the time of this visit. Either the patient or their legal u.s. representative has been informed of the risks [...] will continue active surveillance. - referred to [facility] due to insurance coverage. K/L ratio: stable Current testing remains stable with no evidence of lytic lesions on most recent bone survey. 2. Family history of ovarian cancer Patient was seen by er medical technician . Underwent BRCA 1-2 mutation testing, large rearrangements and deletions testing- all negative. PLAN: F/u prn - no longer covered with [facility] Establishing care in [facility] with [facility] HPI: Case History: 11/15/2019 - PET/CT: [...] compatible with monoclonal gammopathy. Read at the [facility]. Updated Visit, April 10, 2023: Virtual Visit [...] complaints. Updated Visit, September 20, 2021: Roberto Godoy Neelam returns for follow-up. Her last couple of visits have been virtual/telephone visits to review labs. Overall, she has been doing well. She denies any unusual pain. She denies fevers, chills, night sweats and signs/symptoms of infection. She has hot flashes from menopause. She denies any palpable lumps or bumps. She will be retiring from [employer] in 11 days. She may need to [...] that is detai (more content not included)... [facility] 04-10-2023 History of Presen t illness Narrative Images from the original note were not included. NAME: Roberto Richter CLINIC NO.: [id number] DATE OF SERVICE: April 10, 2023 ([facility]) Some elements in this clinic note that are critical to medical decision making have been carefully reviewed and included from a prior clinic note dated: October 17, 2022 ([place]) Referring Provider: Dr. Gio Jaimes Additional Clinicians involved in Roberto Richter's care: VIRTUAL VISIT PROGRESS NOTE This is a virtual visit using [employer] Video Visit. It required patient-provider interaction for the medical decision making as documented below. I have communicated my name and active licensure. The patient's identity and physical location were verified at the time of this visit. Either the patient or their legal u.s. representative has been informed of the risks [...] will continue active surveillance. - referred to [facility] due to insurance coverage. K/L ratio: stable Current testing remains stable with no evidence of lytic lesions on most recent bone survey. 2. Family history of ovarian cancer Patient was seen by er medical technician . Underwent BRCA 1-2 mutation testing, large rearrangements and deletions testing- all negative. PLAN: F/u prn - no longer covered with [facility] Establishing care in [facility] with [facility] HPI: Case History: 11/15/2019 - PET/CT: [...] compatible with monoclonal gammopathy. Read at the [facility]. Updated Visit, April 10, 2023: Virtual Visit [...] or bumps. She will be retiring from [employer] in 11 days. She may need to [...] today. She saw Dr. Kit Bliss at [facility] in 2010. At that time she [...] 1 tablet by mouth twice daily. COENZYME [id number] ORAL Take 2,000 mg by mouth once daily. [place]-3 Fatty Acids-Vitamin E 1,000 mg cap Take [...] CPE Hematology and Oncology Services Provided at: [place], [place] CC: Dr. Gio Jaimes [address] [address] documented in this encounter [facility] 10-17-2022 Note HNO ID: [id number] Author: Dylna Gates MD Service: ? Author Type: Physician Type: Progress Notes Filed: 10/24/2022 7:57 AM Note Text: NAME: NeelamRoberto [facility] NO.: [id number] DATE OF SERVICE: October 17, 2022 ([place]) Some elements in this clinic note that are critical to medical decision making have been carefully reviewed and included from a prior clinic note dated: May 12, 2022 ([place]) Referring Provider: Dr. Gio Jaimes Additional Clinicians [...] of ovarian cancer Patient was seen by er medical technician . Underwent BRCA 1-2 mutation testing, large [...] or bumps. She will be retiring from [employer] in 11 days. She may need to [...] today. She saw Dr. Kit Bliss at [facility] in 2010. At that time she was complaining on pain and tingling in her both lower extre (more content not included)... [facility] 10-17-2022 Instructions Dylan Gates MD - 10/17/2022 10:50 AM EDT Repeat labs in 6 months. Phone call 1 week after to review. documented in this encounter [facility] 10-17-2022 History of Presen t illness Narrative Images from the original note were not included. NAME: Roberto Richter CLINIC NO.: [id number] DATE OF SERVICE: October 17, 2022 ([place]) Some elements in this clinic note that are critical to medical decision making have been carefully reviewed and included from a prior clinic note dated: May 12, 2022 ([place]) Referring Provider: Dr. Gio Jaimes Additional Clinicians [...] of ovarian cancer Patient was seen by er medical technician . Underwent BRCA 1-2 mutation testing, large [...] or bumps. She will be retiring from [employer] in 11 days. She may need [...] today. She saw Dr. Kit Bliss at [facility] in 2010. At that time she [...] compatible with monoclonal gammopathy. Read at the [facility]. REVIEW OF SYSTEMS Per HPI and otherwise [...] 1 tablet by mouth twice daily. COENZYME [id number] ORAL Take 2,000 mg by mouth once daily. [place]-3 Fatty Acids-Vitamin E 1,000 mg cap Take [...] which included preparing to see the patient, sitn-na-[id number] patient care, completing clinical documentation, obtaining and/or reviewing separately obtained history, performing a medically appropriate examination, counseling and educating the patient/family/caregiver, ordering medications, tests, or procedures, independently interpreting results (not separately reported) and communicating results to the patient/family/caregiver. Dylan Gates MD, CPE Hematology and Oncology Services Provided at: [place], [place] CC: Dr. Gio Jaimes [address] [facility] [address] [facility] [address] documented in this encounter [facility] 05-18-2022 Instructions Dylan Gates MD - 05/18/2022 5:02 AM EST Repeat labs in 6 months1 week prior to return. RTC 1 week after to review. documented in this encounter [facility] 05-12-2022 History of Presen t illness Narrative NAME: Roberto Richter CLINIC NO.: [id number] DATE OF SERVICE: May 12, 2022 ([place]) Some elements in this clinic note that are critical to medical decision making have been carefully reviewed and included from a prior clinic note dated: September 20, 2021 ([place]) & May 20, 2021 ([facility]).. Referring Provider: Dr. Gio Jaimes Additional Clinicians [...] of ovarian cancer Patient was seen by er medical technician . Underwent BRCA 1-2 mutation testing, large [...] or bumps. She will be retiring from [employer] in 11 days. She may need [...] today. She saw Dr. Kit Bliss at [facility] in 2010. At that time she [...] compatible with monoclonal gammopathy. Read at the [facility]. HISTORY REVIEWED (electronic chart updated): PAST MEDICAL HISTORY Diagnosis Date BRCA negative Hypercalcemia Hyperparathyroidism (HCC) MGUS (monoclonal gammopathy of unknown significance) Multiple myeloma (HCC) 11/02/2019 PAST SURGICAL HISTORY Procedure Laterality Date HYSTERECTOMY HX 2004 BSO as well, on HRT PARATHYROIDECTOMY/EXPLORATION PARATHYROIDS [...] 1 tablet by mouth twice daily. COENZYME [id number] ORAL Take 2,000 mg by mouth once daily. [place]-3 Fatty Acids-Vitamin E (FISH OIL) 1,000 mg [...] gm/dL 10/12/2019 1.56 gm/dL Dylan Gates MD, CPE [facility] [place], [place] documented in this encounter [facility] 09-20-2021 History of Presen t illness Narrative Images from the original note were not included. NAME: Roberto Richter CLINIC NO.: [id number] DATE OF SERVICE: September 20, 2021 Some [...] of ovarian cancer Patient was seen by er medical technician . Underwent BRCA 1-2 mutation testing, large [...] or bumps. She will be retiring from [employer] in 11 days. She may need to [...] today. She saw Dr. Kit Bliss at [facility] in 2010. At that time she [...] compatible with monoclonal gammopathy. Read at the [facility]. REVIEW OF SYSTEMS Per HPI and otherwise [...] 1 tablet by mouth twice daily. COENZYME [id number] ORAL Take 2,000 mg by mouth once daily. [place]-3 Fatty Acids-Vitamin E (FISH OIL) 1,000 mg [...] Laterality Date EXPLORE PARATHYROID GLANDS HYSTERECTOMY HX 2005 BSO as well, on HRT TONSILLECTOMY HX [...] Ovarian Heart Father hypertension Courtney Miranda APRN.CNP [place], [place] I spent a total of 30 minutes on the date of the service which included preparing to see the patient, [id number] patient care, completing clinical documentation, obtaining and/or reviewing separately obtained history, performing a medically appropriate examination, counseling and educating the patient/family/caregiver, ordering medications, tests, or procedures, independently interpreting results (not separately reported) and communicating results to the patient/family/caregiver. CC: Dr. Gio Jaimes [address] [address] documented in this encounter [facility] 09-05-2021 Miscellaneous Notes Patient coming in 09/09/21 for lab only with no orders. Please review and place labs. 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, without mention of having achieved remission 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, without mention of having achieved remission [facility] 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, without mention of having achieved remission [facility] Diagnosis Primary hypertension Unspecified essential hypertension [facility] Primary hypertension Unspecified essential hypertension [facility] Diagnosis Primary hypertension Unspecified essential hypertension [facility] Diagnosis Primary hypertension Unspecified essential hypertension [facility] Diagnosis Routine general medical examination at a health care facility- Primary High cholesterol Pure hypercholesterolemia Primary hypertension Unspecified essential hypertension Elevated blood sugar Other abnormal glucose [facility] filed[facility] in [facility] on filedocumented in this encounter [facility] on filedocumented in this encounter [facility] on filedocumented in this encounter [facility] filedocumented in this encounter [facility] filedocumented in this encounter [facility] on filedocumented in this [facility] Summary Purpose Family History No Family History Records FoundNo Family History Records FoundNo Family History Records FoundNo Family History Records FoundNo Family History Records Found Advance Directives No Advanced Directives Records FoundDocuments on File Type Date Recorded 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 Advance Directive(s) 09/24/2011 4:13 PM Additional Source Comments INFORMATION SOURCE (unrecogn ized section and content) DATE CREATED AUTHOR 08/03/2020 [facility] DATE CREATED AUTHOR AUTHOR'S ORGANIZ ATION 11/01/2021 [facility] DATE CREATED AUTHOR AUTHOR'S ORGANIZ ATION 08/21/2023 [facility] DATE CREATED AUTHOR AUTHOR'S ORGANIZ ATION 09/24/2023 [facility] DATE CREATED AUTHOR AUTHOR'S ORGANIZ ATION 06/09/2024 [facility] Source Comments (unrecognize d section and content) In the event this informatio n is protected by the Federal Confidentiality of Alcohol and Drug Abuse Patient Records regulations: The Federal rules restrict any use of the information to criminally investigate or prosecute any alcohol or drug abuse patient.[facility] the event this information is protected by the Federal Confidentiality of Alcohol and Drug Abuse Patient Records regulations: The Federal rules restrict any use of the information to criminally investigate or prosecute any alcohol or drug abuse patient.[facility] the event this information is protected by the Federal Confidentiality of Alcohol and Drug Abuse Patient Records regulations: The Federal rules restrict any use of the information to criminally investigate or prosecute any alcohol or drug abuse patient.[facility] the event this information is protected by the Federal Confidentiality of Alcohol and Drug Abuse Patient Records regulations: The Federal rules restrict any use of the information to criminally investigate or prosecute any alcohol or drug abuse patient.[facility] the event this information is protected by the Federal Confidentiality of Alcohol and Drug Abuse Patient Records regulations: The Federal rules restrict any use of the information to criminally investigate or prosecute any alcohol or drug abuse patient.[facility] the event this information is protected by the Federal Confidentiality of Alcohol and Drug Abuse Patient Records regulations: The Federal rules restrict any use of the information to criminally investigate or prosecute any alcohol or drug abuse patient.[facility] Reason for Visit (unrecogniz ed section and content) Reason Onset Date Comments Lab Orders 09/05/2021 Reason Comments Smoldering multitple myeloma 4 month fol low up Specialty Diagnoses / Procedures Referred By Contac t Referred To Contact Hematology/Oncology / HEMATOLOGY/ONCOLOGY Diagnoses lmov 01/28 to r/s 6 month lab with phone visit after for results [phone] Procedures EST PATIENT VISIT LEVEL 5 PROVIDER SPECIALTY PHONE CALL Self Dylan Gates MD [facility] [address] [facility] [place] [address] Referral ID Status Reason Start Date Expiration Date V isits Requested Visits Authorized [id number] Authorized 02/20/2021 02/20/2022 99 99 Reason Comments Established Patient Specialty Diagnoses / Procedures Referred By Contac t Referred To Contact Hematology/Oncology / HEMATOLOGY/ONCOLOGY Diagnoses 6 mon lab follow up [phone] Procedures PHYS/QHP TELEPHONE EVALUATION 5-10 MIN PROVIDER SPECIALTY PHONE CALL Dylan Gates MD [address] [place] [address] Dylan Gates MD [facility] [place] [address] Referral ID Status Reason Start Date Expiration Date Visits Re quested Visits Authorized [id number] Denied 05/12/2022 05/03/2023 1 0 Reason Comments Multiple Myeloma Specialty Diagnoses / Procedures Referred By Contac t Referred To Contact Hematology/Oncology / HEMATOLOGY/ONCOLOGY Diagnoses 1 year follow up Procedures OFFICE/OUTPATIENT ESTABLISHED MOD MDM 30-39 MIN EST PATIENT Dylan Gates MD [address] [place] [address] Dylan Gates MD [address] [place] [address] [place] [address] Referral ID Status Reason Start Date Expiration Date Visits Re quested Visits Authorized [id number] Closed 10/17/2022 05/03/2023 1 1 Specialty Diagnoses / Procedures Referred By Contac t Referred To Contact Hematology/Oncology / HEMATOLOGY/ONCOLOGY Diagnoses 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 Procedures PHYS/QHP TELEPHONE EVALUATION 5-10 MIN PROVIDER SPECIALTY PHONE CALL Dylan Gates MD [address] [place] [address] Dylan Gates MD [address] [place] [address] [place] [address] Referral ID Status Reason Start Date Expiration Date Visits Re quested Visits Authorized [id number] Closed 04/10/2023 05/03/2023 1 1 Reason Onset Date Comments Med Refill 05/01/2023 Reason Onset Date Comments Med Refill 08/04/2023 Reason Comments Records faxed Reason Onset Date Comments Heartburn 03/22/2024 Reason Comments Med Refill Reason Onset Date Comments Med Refill 04/11/2024 Reason Comments Annual Exam Gets vp patient care [facility] Care Teams (unrecognized sec tion and content) Referral And Information Aide Relationship Specialty Start Date End Date Gio Jaimes [address] [place] [address], [address] [place] [address] PCP - General Internal Medicine 05/08/10 Dylan Gates MD [address] [place] [address] Physician Hematology/Oncology 11/07/19 Courtney Miranda, SENIOR IT SECURITY ANALYST.[employer] [address] [place] [address] Nurse Practitioner Hematology/Oncology 11/07/19 Bertha Monsalve, RN [address] [place] [address] Specialty Controls Operator Molded Goods Hematology/Oncology 11/07/19 Referral And Information Aide Relationship Specialty Start Date [facility] [address], [address] [place] [address] PCP - General Internal Medicine 05/08/10 Dylan Gates MD [address] [place] [address] Physician Hematology/Oncology 11/07/19 Courtney Miranda, SENIOR IT SECURITY ANALYST.[employer] [address] [place] [address] Nurse Practitioner Hematology/Oncology 11/07/19 Bertha Monsalve, MANDIE [address] [place] [address] Specialty Controls Operator Molded Goods Hematology/Oncology 11/07/19 Referral And Information Aide Relationship Specialty Start Date End Date [facility] [address], [address] [place] [address] PCP - General Internal Medicine 05/08/10 Dylan Gates MD [address] [place] [address] Physician Hematology/Oncology 11/07/19 Courtney Miranda, SENIOR IT SECURITY ANALYST.[employer] [address] [place], [place] [id number] Nurse Practitioner Hematology/Oncology 11/07/19 Bertha Monsalve, MANDIE [address] [place], [place] [id number] Specialty Controls Operator Molded Goods Hematology/Oncology 11/07/19 Referral And Information Aide Relationship Specialty Start Date End Date Gio Jaimes [address] [place] [address], [address] [place] [address] PCP - General Internal Medicine 05/08/10 Dylan Gates MD [address] [place] [address] Physician Hematology/Oncology 11/07/19 Courtney Miranda, SENIOR IT SECURITY ANALYST.[employer] [address] [place] [address] Nurse Practitioner Hematology/Oncology 11/07/19 Bertha Monsalve, MANDIE [address] [place] [address] Specialty Controls Operator Molded Goods Hematology/Oncology 11/07/19 Referral And Information Aide Relationship Specialty Start Date End Date Gio Jaimes [address] [place] [address], [address] [place] [address] PCP - General Internal Medicine 05/08/10 Dylan [place] MD [address] [place] [address] [place] [address] Physician Hematology/Oncology 11/07/19 Courtney Miranda, SENIOR IT SECURITY ANALYST.[employer] [address] [place] [address] [place] [address] Nurse Practitioner Hematology/Oncology 11/07/19 Referral And Information Aide Relationship Specialty Start Date End Date Gio Jaimes MD [address] [place] [address], [address] [place], [place] [id number] PCP - General Pediatrics 02/02/17 Referral And Information Aide Relationship Specialty Start Date End Date Gio Jaimes MD [address] [place] [address], [address] [place], [place] [id number] PCP - General Pediatrics 02/02/17 Referral And Information Aide Relationship Specialty Start Date End Date Gio Jaimes [address] [place] [address], [address] [place], [place] [id number] PCP - General Internal Medicine 05/08/10 Dylan Gates MD [address] [place] [address] [place] [address] Physician Hematology/Oncology 11/07/19 Courtney Miranda APRN.[employer] [address] [place] [address] [place] [address] Nurse Practitioner Hematology/Oncology 11/07/19 Referral And Information Aide Relationship Specialty Start Date End Date Gio Jaimes MD [address] [place] [address], [address] [place] [address] PCP - General Pediatrics 02/02/17 Referral And Information Aide Relationship Specialty Start Date End Date Gio Jaimes MD [address] [place] [address], [address] [place], [place] [id number] PCP - General Pediatrics 02/02/17 Referral And Information Aide Relationship Specialty Start Date End Date Gio Jaimes MD [address] [place] [address], [address] [place], [place] [id number] PCP - General Pediatrics 02/02/17 Referral And Information Aide Relationship Specialty Start Date End Date Gio Jaimes MD [address] [place] [address], [address] [place] [address] PCP - General Pediatrics 02/02/17 Referral And Information Aide Relationship Specialty Start Date End Date Gio Jaimes MD [address] [place] [address], [address] [place], [place] [phone] PCP - General Pediatrics 02/02/17 FOR RECORDS PERTAINING TO PATIENTS WHO ARE [...] BE BASED ON THE PRIMARY CLINICAL RECORDS. [employer] [facility]. provides no warranty or guarantee of the accuracy or completeness of information in this document.
[2024-06-10 08:00] LABS: Chol HDL Ratio 3.3; Cholesterol 137 mg/dL (<=200); HDL Cholesterol 41 mg/dL (40-60); Triglycerides 156 mg/dL (<=150); VLDL CHOLESTEROL 31.2 mg/dL
[2024-06-10 08:29] LABS: Estimated Average Glucose 120 mg/dL; Glycohemoglobin A1C 5.8 % (4.5-6.2)
== END 2024-06-10 07:06 | disposition home or self-care (01) ==
LOC: LAB 07:05
PROVIDERS: PCP Internal Medicine; Visit Provider Internal Medicine
DX: Z00.00 Encounter for general adult medical examination without abnormal findings (principal)
CPT/HCPCS: 36415; 80061; 83036

== ENCOUNTER 2024-09-06 09:35 | Outpatient (OUT) | payer BC, SELFPAY ==
[2024-09-06 10:00] LABS: Basophils Absolute Auto 0.1 10^3/uL (0.0-0.1); Eosinophils Absolute Auto 0.1 10^3/uL (0.0-0.7); Eosinophils Percent Auto 2.1 % (0.9-7.0); Hematocrit 40.1 % (36.0-48.0); Hemoglobin 13.3 g/dL (12.0-16.0); Immature Granulocytes Abs Auto 0.02 10^3/uL (0.00-0.03); Immature Granulocytes Pct Auto 0.3 % (0.0-0.5); Lymphocytes Absolute Auto 2.4 10^3/uL (1.2-3.8); Lymphocytes Percent Auto 40.1 % (20.5-60.0); Mean Corpuscular HGB Conc 33.2 g/dL (29.9-35.2); Mean Corpuscular Volume 93.5 fL (81.0-99.0); Mean Platelet Volume 9.9 fL (9.5-13.5); Monocytes Absolute Auto 0.5 10^3/uL (0.3-0.8); Monocytes Percent Auto 8.9 % (1.7-12.0); Neutrophils Absolute Auto 2.9 10^3/uL (1.4-6.5); Neutrophils Percent Auto 47.6 % (43.0-75.0); Platelet Count 210 10^3/uL (150-450); Red Blood Count 4.29 10^6/uL (4.20-5.40); Red Cell Distribution Width 13.2 % (11.0-15.0); White Blood Count 6.1 10^3/uL (4.0-11.0)
[2024-09-06 10:45] LABS: Alanine Aminotransferase 33 U/L (14-59); Albumin Globulin Ratio 0.7; Albumin Level 3.5 g/dL (3.4-5.0); Alkaline Phosphatase 78 U/L (46-116); Anion Gap 11.7; Aspartate Amino Transferase 23 U/L (15-37); BUN Creatinine Ratio 16.8; Bilirubin Total 0.3 mg/dL (0.2-1.0); Carbon Dioxide 31.4 mmol/L (21.0-32.0); Chloride 100 mmol/L (98-107); Estimated GFR (African America >60 (>=60 mL/min/1.73m^2); Estimated GFR (Non-African Ame >60 (>=60 mL/min/1.73m^2); Globulin 4.8 g/dL; Glucose 99 mg/dL (74-106); Lactate Dehydrogenase 153 U/L (81-234); Potassium 4.1 mmol/L (3.5-5.1); Sodium 139 mmol/L (136-145); Total Protein 8.3 g/dL (6.4-8.2)
[2024-09-08 15:08] LABS: Alpha-1-Globulin 0.2 g/dL (0.0-0.4); Alpha-2-Globulin 0.7 g/dL (0.4-1.0); Free Kappa Lt Chains,S 10.5 mg/L (3.3-19.4); Free Lambda Lt Chains,S 4.4 mg/L (5.7-26.3); Gamma Globulin 2.2 g/dL (0.4-1.8); Immunoglobulin A, Qn, Serum 54 mg/dL (87-352); Immunoglobulin G, Qn, Serum 2373 mg/dL (586-1602); Immunoglobulin M, Qn, Serum 30 mg/dL (26-217); Kappa/Lambda Ratio,S 2.39 (0.26-1.65); Protein, Total 7.9 g/dL (6.0-8.5)
[2024-09-10 09:12] LABS: Immunoglobulin E, Total 39 IU/mL (6-495)
== END 2024-09-06 09:36 | disposition home or self-care (01) ==
LOC: LAB 09:38
PROVIDERS: PCP Internal Medicine; Visit Provider Internal Medicine Hematology & Oncology
DX: C90.00 Multiple myeloma not having achieved remission (principal)
CPT/HCPCS: 36415; 80053; 82784; 82785; 83521; 83615; 84155; 84165; 85025; 86334

== ENCOUNTER 2024-10-26 08:24 | Outpatient (OUT) | payer BC, SELFPAY ==
--- OUTSIDE RECORDS SUMMARY | 2024-03-08 07:45 | XMS_ITS ---
Author Organization [facility] [place] Address [address] [place] [address] Care Team Providers Care Ict Sales Assistant Name Role Phone Roberth Hdz MD Primary Care Provider Velia Bates Unavailable [phone] REASON FOR VISIT MD TELEHEALTH Encounters Encounter Location Date Provider Diagnosis [facility] [address] [place] [id number] 03/08/2024 Velia Low Plan Of Treatment Next Appt Details Provider Name:Velia Low , 05/16/2025 11:00:00 AM, [address] [place], [address], Progress Notes * Barbara YANAdrienneB:1965 (59 yo F)Acc No.[id number]:03/08/2024 UNLOCKED PROGRESS NOTE Progress Notes Patient: Vidhya BISHOP Provider: Harmony Low M.D. :1965 A ge:59 Y S ex:Female Date:03/08/2024 Address:[address], [place], [id number] Pcp:Roberth Hdz MD Subjective: * Chief Complaints: * 1 . TELEHEALTH. * Medical History: Objective: * Vitals: Assessment: Plan: * Treatment: * * Electronic signature of Arya Low MD, [id number] on 10/26/2024 at 08:27 AM EDT Sign off status: Pending Visit Status: Tomer RANGEL (Voice) * Provider: Harmony Low M.D. Date: 05/08/2023 Generated for Audra edmonds/Omayra/Ted on: 0 10/26/2024 08:27 AM EDT
--- OUTSIDE RECORDS SUMMARY | 2024-03-08 11:00 | XMS_ITS ---
Author Organization The [facility] in [place] Address [address] [place] [address] Care Team Providers Care Phlebotomist Supervisor/Instructor Name Role Phone Roberth Hdz MD Primary Care Provider Velia Bates Unavailable [phone] REASON FOR VISIT MD TELEHEALTH Encounters Encounter Location Date Provider Diagnosis [facility] [address] [place] [phone] 03/08/2024 Velia Low Plan Of Treatment Next Appt Details Provider Name:Velia Low , 05/16/2025 11:00:00 AM, [address] [place], [address], Progress Notes * Barbara YANAdrienneB:1965 (59 yo F)Acc No.[id number]:03/08/2024 UNLOCKED PROGRESS NOTE Progress Notes Patient: Vidhya BISHOP Provider: Harmony Low M.D. :1965 A ge:59 Y S ex:Female Date:03/08/2024 Address:[address], [place], [place] Pcp:Roberth Hdz MD Subjective: * Chief Complaints: * 1 . TELEHEALTH. * Medical History: Objective: * Vitals: Assessment: Plan: * Treatment: * * Electronic signature of Arya Low MD, [id number] on 10/26/2024 at 08:27 AM EDT Sign off status: Pending Visit Status: C ANC (Cancelled) * Provider: Harmony Low M.D. Date: 05/08/2023 Generated for Audra edmonds/Omayra/Ted on: 0 10/26/2024 08:27 AM EDT
--- OUTSIDE RECORDS SUMMARY | 2024-09-20 11:00 | XMS_ITS ---
Author Organization [facility] Address [address] [place] [address] Care Team Providers Care Assessment Coordinator Name Role Phone Roberth Hdz MD Primary Care Provider Velia Bates Unavailable [phone] REASON FOR VISIT MD TELEHEALTH Encounters Encounter Location Date Provider Diagnosis [facility] Oncology [address] [place] [phone] 09/20/2024 Velia Low Plan Of Treatment Next Appt Details Provider Name:Velia Low , 05/16/2025 11:00:00 AM, [address] [place], [address], Progress Notes * Barbara YANAdrienneB:1965 (59 yo F)Acc No.[id number]:09/20/2024 UNLOCKED PROGRESS NOTE Progress Notes Patient: Vidhya BISHOP Provider: Harmony Low M.D. :1965 A ge:59 Y S ex:Female Date:09/20/2024 Address:[address], [place], [place] Pcp:Roberth Hdz MD Subjective: * Chief Complaints: * 1 . TELEHEALTH. * Medical History: Objective: * Vitals: Assessment: Plan: * Treatment: * * Electronic signature of Arya Low MD, [id number] on 10/26/2024 at 08:27 AM EDT Sign off status: Pending Visit Status: Tomer RANGEL (Voice) * Provider: Harmony Low M.D. Date: 0 09/20/2024 Generated for Audra edmonds/Omayra/Ted on: 0 10/26/2024 08:27 AM EDT
--- OUTSIDE RECORDS SUMMARY | 2024-10-26 08:26 | XMS_ITS | Clinical Summary ---
Author Organization [facility] Address [address] [place] [address] Care Team Providers Care Phlebotomist Name Role Phone Unavailable Primary Care Provider Unavailabl e Social History Tobacco Use Types Packs/Day Years Used Date Smoking Tobacco: Never Assessed Comments Unknown Sex and Gender Information Value Date Recorded Sex Assigned at Not on file Legal Sex Female 6:55 PM EDT Gender Identity Not on file Sexual Orientation Not on file Last Filed Vital Signs Vital Sign Reading Time Taken Comments Blood Pressure 129/87 06/28/2018 12:00 PM EST Pulse - - Temperature - - Respiratory Rate - - Oxygen Saturation - - Inhaled Oxygen Concentration - - Weight 86.2 kg (190 lb) 06/28/2018 12:00 PM EST Height 157.5 cm (5' 2 ) 06/28/2018 12:00 PM EST Body Mass Index 34.75 06/28/2018 12:00 PM EST Plan of Treatment Not on file
--- OUTSIDE RECORDS SUMMARY | 2024-10-26 08:26 | XMS_ITS | Encounter Summary ---
[id number] [address] [place] [address] Care Team Providers Care Dubbing Machine Operator Name Role Phone Roberth Hdz MD Primary Care Provider [phone] Encounter Details Date Type Department Care Team (Late st Contact Info) Description 05/30/2022 Orders Only [facility] Internal Medicine/Pediatrics [address] [facility] [address] [place] [phone] Vesna Merida RMA High cholesterol Social History Tobacco Use Types Packs/Day Years Used Date Smoking Tobacco: Never Smokeless Tobacco: Never Alcohol Use Standard Drinks/Week Comments No 0 (1 standard drink = 0.6 oz pur e alcohol) Social Connection and Isolat ion Panel [NHANES] Answer Date Recorded In a typical week, how many times do you talk on the phone with family, friends, or neighbors? Once a week 05/27/2022 How often do you get togethe r with friends or relatives? Once a week 05/27/2022 How often do you attend chur or christianity services? More than 4 times per year 05/27/2022 Do you belong to any clubs o r organizations such as jehovah's witness groups, unions, fraternal or athletic groups, or school groups? Yes 05/27/2022 How often do you attend meet ings of the clubs or organizations you belong to? 1 to 4 times per year 05/27/2022 Are you , , di vorced, , never , or living with a partner? 05/27/2022 AUDIT-C Answer Date Recorded Q1: How often do you have a drink containing alc ohol? Monthly or less 05/27/2022 Q2: How many drinks containi ng alcohol do you have on a typical day when you are drinking? 1 or 2 05/27/2022 Q3: How often do you have si x or more drinks on one occasion? Never 05/27/2022 Overall Financial Resource Strain (CARDIA) Answe r Date Recorded How hard is it for you to pa y for the very basics like food, housing, medical care, and heating? Not hard at all 05/27/2022 PHQ-2 Answer Date Recorded Total Score 6 05/29/2022 [facility] - Occupational Stress Questionnaire Answer Date Recorded Do you feel stress - tense, restless, nervous, or anxious, or unable to sleep at night because your mind is troubled all the time - these days? To some extent 05/27/2022 Exercise Vital Sign Answer Date Recorde d On average, how many days pe r week do you engage in moderate to strenuous exercise (like a brisk walk)? 5 days 05/27/2022 On average, how many minutes do you engage in exercise at this level? 20 min 05/27/2022 PRAPARE - Transportation Answer Date Re corded In the past 12 months, has l ack of transportation kept you from medical appointments or from getting medications? No 05/05 In the past 12 months, has l ack of transportation kept you from meetings, work, or from getting things needed for daily living? No 05/27/2022 Housing Instability Answer Date Recorde d Are you worried or concerned that in the next two months you may not have stable housing that you own, rent or stay in as a part of a household? No 05/27/2022 Childcare Answer Date Recorded Do problems getting child ca re make it difficult for you to work or study? No 05/27/2022 Employment Answer Date Recorded Do you need help finding a l ocal career center and/or a training program? No 05/27/2022 Purpose - Life Answer Date Recorded I have a purpose and direction in my life. Agree 05/27/2022 Education Answer Date Recorded What is the highest level of school you have completed or the highest degree you have received? Associate degree: occupational, technical, or vocational program 11/12/2020 Comments No Sex and Gender Information Value Date Recorded Sex Assigned at Not on file Legal Sex Female 11:39 AM EDT Gender Identity Not on file Sexual Orientation Not on file COVID-19 Exposure Response Date Recorded In the last month, have you been in contact with someone who was confirmed or suspected to have Coronavirus / COVID-19? No / Unsure 05/29/2022 10:24 AM EST documented as of this encounter Plan of Treatment Upcoming Encounters Date Type Department Care Team (Late st Contact Info) Description 09/19/2025 9:00 AM EDT Office Visit [facility]y [facility] - Medical Oncology [address] [place] [address] Audrey Hernandez PA [address] [place] [address] documented as of this encounter Procedures Procedure Name Priority Date/Time Associated Diagnosis Comments LIPID PROFILE Routine 05/29/2022 High cholesterol documented in this encounter Results * (ABNORMAL) Lipid panel (05/29/2022) External Cholesterol 187 <=200 [facility] External Cholesterol:Hdl 3.8 <=4.97 [facility] External Hdl Cholesterol 49 >=39 [facility] External Ldl (Calc) 96 <=100 [facility] External Triglycerides 210(A) <=149 [facility] External Very Low Lipoprotein 42(A) <=30 [facility] Blood 05/29/2022 us Roberth Hdz MD LAB BLOOD ORDERABLES Final Re sult [facility] documented in this encounter Visit Diagnoses Diagnosis High cholesterol Pure hypercholesterolemia documented in this encounter Additional Health Concerns Assessment Noted Time PHQ-9 Depression Total Score: 6 05/29/19 23 10:38 AM EST documented as of this encounter Care Teams Dubbing Machine Operator Relationship Specialty Start Date End Date Roberth Hdz MD [address] [place] [address], [address] [place] [address] PCP - General Pediatrics 02/02/17 documented as of this encounter
--- OUTSIDE RECORDS SUMMARY | 2024-10-26 08:26 | XMS_ITS | Encounter Summary ---
Author Organization [email or web address] Address [facility] [id number] [address] [place] [address] Care Team Providers Care Yeast Washer Name Role Phone Roberth Hdz MD Primary Care Provider [phone] Encounter Details Date Type Department Care Team (Late st Contact Info) Description 10/28/2021 Orders Only [facility] Oncology - Radiation Oncology [address] [place] [phone] Ref Prov, [place] [address] Social History Tobacco Use Types Packs/Day Years Used Date Smoking Tobacco: Never Smokeless Tobacco: Never Alcohol Use Standard Drinks/Week Comments No 0 (1 standard drink = 0.6 oz pur e alcohol) Social Connection and Isolat ion Panel [NHANES] Answer Date Recorded In a typical week, how many times do you talk on the phone with family, friends, or neighbors? More than three times a week 11/12/2020 How often do you get togethe r with friends or relatives? Once a week 11/12/2020 How often do you attend chur ch or church services? Never 11/12/2020 Do you belong to any clubs o r organizations such as adventism groups, unions, fraternal or athletic groups, or school groups? No 11/12/2020 How often do you attend meet ings of the clubs or organizations you belong to? Never 11/12/2020 Are you , , di vorced, , never , or living with a partner? 11/12/2020 AUDIT-C Answer Date Recorded Q1: How often do you have a drink containing alc ohol? 2-4 times a month 11/12/2020 Q2: How many drinks containi ng alcohol do you have on a typical day when you are drinking? 1 or 2 11/12/2020 Q3: How often do you have si x or more drinks on one occasion? Less than monthly 11/12/2020 Overall Financial Resource Strain (CARDIA) Answe r Date Recorded How hard is it for you to pa y for the very basics like food, housing, medical care, and heating? Not hard at all 11/12/2020 PHQ-2 Answer Date Recorded Total Score 0 11/12/2020 [facility] - Occupational Stress Questionnaire Answer Date Recorded Do you feel stress - tense, restless, nervous, or anxious, or unable to sleep at night because your mind is troubled all the time - these days? To some extent 11/12/2020 Exercise Vital Sign Answer Date Recorde d On average, how many days pe r week do you engage in moderate to strenuous exercise (like a brisk walk)? 5 days 11/12/2020 On average, how many minutes do you engage in exercise at this level? 20 min 11/12/2020 PRAPARE - Transportation Answer Date Re corded In the past 12 months, has l ack of transportation kept you from medical appointments or from getting medications? No 11/01 In the past 12 months, has l ack of transportation kept you from meetings, work, or from getting things needed for daily living? No 11/12/2020 Childcare Answer Date Recorded Do problems getting child ca re make it difficult for you to work or study? No 11/12/2020 Employment Answer Date Recorded Do you need help finding a ITC al career center and/or a training program? No 11/12/2020 Purpose - Life Answer Date Recorded I have a purpose and direction in my life. Stron gly Agree 11/12/2020 Education Answer Date Recorded What is the [...] Exposure Response Date Recorded In the last 10 days, have yo u been in contact with someone who was confirmed or suspected to have Coronavirus/COVID-19? No / Unsure 10/11/2021 1:29 PM EDT documented as of this encounter Plan of Treatment Upcoming Encounters Date Type Department Care Team (Late st Contact Info) Description 09/19/2025 9:00 AM EDT Office Visit Susy Nuno [facility] - Medical Oncology [address] [place] [address] Audrey Hernandez PA [address] [place], [place] [id number] documented as of this encounter Procedures Procedure Name Priority Date/Time Associated Diagnosis Comments MAMM SCREENING BILATERAL W CAD Routine 10/28/2021 documented in this encounter Results * Mammography screening bilateral with CAD (10/28/2021) Anatomical Region Laterality Modality Breast Bilateral Mammography us Not In System Ref Prov IMG MAMMOGRAPHY ORDERABLE S Final Result documented in this encounter Visit Diagnoses Not on filedocumented in this encounter Additional Health Concerns Assessment Noted Time PHQ-9 Depression Total Score: 0 11/13/19 21 1:08 PM EDT documented as of this encounter Care Teams Yeast Washer Relationship Specialty Start Date End Date Roberth Hdz MD [address] [place] [address], [address] [place] [address] PCP - General Pediatrics 02/02/17 documented as of this encounter
--- NOTE | 2024-10-26 08:27 | MM_ITS ---
Patient Name: ROBERTO YAN MR#: [id number] : 1965 Exam Date: 10/26/2024 Ordering Doctor: DR GIO JAIMES RADIOLOGY REPORT PROCEDURE: MM TOMOSYNTHESIS SCREENING BI COMPARISON: MM TOMOSYNTHESIS SCREENING BI, 10/26/2023. MM DIAGNOSTIC MAMMO UNILAT RT, 11/05/2022. MM TOMOSYNTHESIS SCREENING BI, 10/29/2022. MG MAMM OFE SCRN W CAD DIG, 08/23/2013. INDICATIONS: Screening Calculator Name NCI Breast Cancer Risk Assessment Tool 5 Year Breast Cancer Risk 1.50% Lifetime Breast Cancer Risk 7.40% Personal Breast Cancer No Personal Ovarian Cancer No Treatments None Family Cancers Mother with ovarian cancer at age 58; Grandmother-maternal with ovarian cancer at age ~48; Aunt-maternal with ovarian cancer at age ~50. LOCATION: [facility] BREAST COMPOSITION: There are scattered areas of fibroglandular density. FINDINGS: DIAGNOSTIC CATEGORY 1--NEGATIVE. RIGHT BREAST: No significant suspicious finding. LEFT BREAST: No significant suspicious finding. RECOMMENDATIONS: ROUTINE MAMMOGRAM AND CLINICAL EVALUATION IN 12 MONTHS. PLEASE NOTE: A NORMAL MAMMOGRAM DOES NOT EXCLUDE THE POSSIBILITY OF BREAST CANCER. A CLINICALLY SUSPICIOUS PALPABLE LUMP SHOULD BE BIOPSIED. Dictated by: Julien Muniz DO on 10/26/2024 at 15:38 Approved by: Julien Muniz DO on 10/26/2024 at 15:39
--- OUTSIDE RECORDS SUMMARY | 2024-10-26 08:27 | XMS_ITS | Encounter Summary ---
Author Organization [facility] Address [id number] [address] [place] [address] Care Team Providers Care Abstract Checker Name Role Phone Roberth Hdz MD Primary Care Provider [phone] Encounter Details Date Type Department Care Team (Late st Contact Info) Description 08/05/2021 Orders Only [facility] Internal Medicine/Pediatrics [address] [facility] [address] [place] [phone] Vesna Merida RMA High cholesterol Social History [...] often do you attend chur ch or denominational services? Never 11/12/2020 Do you belong to any clubs o r organizations such as taoism groups, unions, fraternal or athletic groups, or [...] Answer Date Recorded Total Score 0 11/12/2020 [facility] - Occupational Stress [...] Recorded Do you need help finding a [employer] al career center and/or a training program? [...] suspected to have Coronavirus/COVID-19? No / Unsure 08/05/2021 2:55 PM EDT documented as of this encounter Plan of Treatment Upcoming Encounters Date Type Department Care Team (Late st Contact Info) Description 09/19/2025 9:00 AM EDT [facility] [address] [place] [phone] Audrey Hernandez PA [address] [place] [address] documented as of this encounter Procedures Procedure Name Priority Date/Time Associated Diagnosis Comments LIPID PROFILE Routine 08/03/2021 High cholesterol documented in this encounter Results * Lipid panel (08/03/2021) External Cholesterol 171 <=200 [facility] External Cholesterol:Hdl 3.5 3.3 - 11.0 [facility] External Hdl Cholesterol 49 40 - 60 [facility] External Ldl (Calc) 106.2 [facility] External Triglycerides 79 <=150 [facility] External Very Low Lipoprotein 15.8 [facility] Blood 08/03/2021 us Roberth Hdz MD LAB BLOOD ORDERABLES Final Re sult [facility] documented in this encounter Visit Diagnoses Diagnosis High cholesterol Pure hypercholesterolemia documented in this encounter Additional Health Concerns Assessment Noted Time PHQ-9 Depression Total Score: 0 11/13/19 21 1:08 PM EDT documented as of this encounter Care Teams Abstract Checker Relationship Specialty Start Date End Date Roberth Hdz MD [address] [place] [address], [address] [place] [address] PCP - General Pediatrics 02/02/17 documented as of this encounter
--- OUTSIDE RECORDS SUMMARY | 2024-10-26 08:27 | XMS_ITS | Clinical Summary ---
Author Organization [facility] Address [address] [place], [place] [id number] Care Team Providers Care Multilith Operator Name Role Phone Roberth Hdz MD Primary Care Provider + Dylan Richardson MD Unavailable Courtney Miranda APRN.CLINICAL RESEARCH ASSISTANT Unavailable [phone] Allergies No known active allergies Medications cyanocobalamin (VITAMIN B-12) 1,000 mcg tab Take 1,000 mcg by mouth once daily. Active MULTI-VITAMIN ORAL Take 1 tablet by mouth once daily. Active ascorbic acid, vitamin C, (VITAMIN C) 500 mg tablet Take 1,000 mg by mouth once daily. Active Calcium Carbonate-Vitamin D3 (OSCAL 500+D) 500 mg(1,250mg) -600 unit chewIndications:[place]lands clonal paraproteinemia Take 1 tablet by mouth twice daily. 2 Active COENZYME [id number] ORALIndications:[place]lands clonal paraproteinemia Take 2,000 mg by mouth once daily. Active [place]-3 Fatty Acids-Vitamin E 1,000 mg capIndications:Monoc lonal paraproteinemia Take 1 capsule by mouth once daily. Active simvastatin (ZOCOR) 40 mg tablet Take 40 mg by mouth daily at bedtime. 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 Immunizations Immunization Administration Dates Next Due influenza vaccine, unspecified formulation 01/18,06/25/2009 novel influenza (B9Q6-80) vaccine, PF 06/25/2009 tetanus diphtheria pertussis (Tdap) vaccine, age 7+ yr (ADACEL, BOOSTRIX) 08/03/2015 zoster (ZVL) vaccine, live (ZOSTAVAX) 12/19/2015 Family History Medical History Relation Comments Heart Father hypertension Cancer Maternal Grandmother Ovarian Cancer Mother Ovarian Relation Status Comments Father Maternal Grandmother Mother Social History Tobacco Use Types Packs/Day Years Used Date Smoking Tobacco: Never Smokeless Tobacco: Never Alcohol Use Standard Drinks/Week Comments Yes 0 (1 standard drink = 0.6 oz pur e alcohol) Rare socially 2 a year PHQ-2 Answer Date Recorded PHQ-2 score 0 04/08/2023 Area Deprivation Index Answer Date Elkin rded National Score (1-100), lower number is lower ri sk 59 10/17/2022 State Score (1-10), lower number is lower risk 4 10/17/2022 Data from: https://www.neighborhoodatlas.medicine.[facility]/. Last address used for calculation [address] 10/17/2022 Comments No Sex and Gender Information Value Date Recorded Sex Assigned at Female 10/31/2019 9:34 AM EDT Legal Sex Female 8:34 AM EST Gender Identity Female 10/31/2019 9:34 AM EDT Sexual Orientation Straight 10/31/2019 9: 34 AM EDT Last Filed Vital Signs Vital Sign Reading Time Taken Comments Blood Pressure 152/75 10/17/2022 10:02 AM EDT Pulse 79 10/17/2022 10:02 AM EDT Temperature 36.4 C (97.6 F) 10/17/2022 10:02 AM EDT Respiratory Rate 16 10/17/2022 10:02 AM EDT Oxygen Saturation 97% 10/17/2022 10:02 AM EDT Inhaled Oxygen Concentration - - Weight 93.5 kg (206 lb 3.2 oz) 10/17/2022 10:02 AM EDT Height 157.5 cm (5' 2 ) 10/17/2022 10:02 AM EDT Body Mass Index 37.71 10/17/2022 10:02 AM EDT Plan of Treatment Health Maintenance Due Date Last Done Comments Anxiety Screening 02/02/1982 Depression Screening 02/02/1982 HIV Screening 02/02/1982 Hepatitis C Screening 02/02/1982 Pneumococcal Vaccine: 50+ (1 of 2 - PCV) 02/02/1983 CT Colonography 02/02/2009 Cologuard (FIT-DNA) 02/02/2009 Fecal Occult Blood 02/02/2009 Sigmoidoscopy 02/02/2009 Cervical Cancer Screening 07/08/20142011 (Specify Other Reason in Comment (Do not use for Postpone)) Shingrix Vaccine (1 of 2) 02/13/2016 12/19/2015 Colonoscopy 07/27/2019 07/26/2018, 07/26/2018 Colorectal Cancer Screening 07/27/2019 Mammogram Screening 10/19/2020 10/20/2019, 09/14/2018, 08/08/2010 Covid-19 Vaccine (4 - 2023-2 5 season) 2024 04/04/2021, 08/17/2020, 07/20/2020 RSV Vaccine (1 - Risk 60-74 years 1-dose series) 2024 Lipid Screening 04/29/2024 04/29/2019, 03/05, 01/08/2011 Influenza Vaccine (Season Ended) 2025 02/11/2021, 01/19/2020, 06/25/2009, Additional history exists DTaP,Tdap,Td Vaccine (2 - Td or Tdap) 08/02/2025 08/03/2015 Diabetes Screening 04/03/2026 04/03/2023, 0 10/10/2022, 05/06/2022, Additional history exists Procedures Procedure Name Priority Date/Time Associated Diagnosis Comments COMPREHENSIVE METABOLIC PANEL Routine 04/03/2023 10:12 AM EST Smoldering multiple myeloma (SMM) from Last 3 Months or Most Recently Relevant to Health Maintenance Results * (ABNORMAL) COMP METABOLIC PANEL (04/03/2023 10:12 AM EST) Protein, Total 8.5(H) 6.3 - 8.0 g/dL 04/03/2023 10:54 AM EST [facility] Albumin 4.5 3.9 - 4.9 g/dL 04/03/2023 10:54 AM [facility] Calcium, Total 9.1 8.5 - 10.2 mg/dL 04/03/2023 10:54 AM [facility] Bilirubin, Total 0.3 0.2 - 1.3 mg/dL 04/03/2023 10:54 AM [facility] Alkaline Phosphatase 67 34 - 123 U/L 04/03/2023 10:54 AM [facility] AST 19 13 - 35 U/L 04/03/2023 10:54 AM [facility] ALT 24 7 - 38 U/L 04/03/2023 10:54 AM [facility] Glucose 108(H) 74 - 99 mg/dL 04/03/2023 10:54 AM [facility] Comment: The [place] Diabetes Association (ADA) provides guidance for cutoff [...] Standards of Medical Care in Diabetes 2016, [place] Diabetes Association. Diabetes Care. 2016.39(Suppl 1). BUN 15 7 - 21 mg/dL 04/03/2023 10:54 AM [facility] Creatinine 0.77 0.58 - 0.96 mg/dL 04/03/2023 10:54 AM [facility] Sodium 140 136 - 144 mmol/L 04/03/2023 10:54 AM [facility] Potassium 4.4 3.7 - 5.1 mmol/L 04/03/2023 10:54 AM [facility] Chloride 104 97 - 105 mmol/L 04/03/2023 10:54 AM EST [facility] CO2 27 22 - 30 mmol/L 04/03/2023 10:54 AM EST [facility] Anion Gap 9 9 - 18 mmol/L 04/03/2023 10:54 AM EST [facility] Estimated Glomerular Filtration Rate 89 >=60 mL/min/1. 73m 04/03/2023 10:54 AM EST [facility] Comment:Estimated Glomerular Filtration Rate (eGFR) is calculated using the 2020 CKD-EPI creatinine equation. This equation utilizes serum creatinine, sex, and age as parameters. The creatinine assay has traceable calibration to isotope dilution- mass spectrometry. Refer to KDIGO guidelines for clinical interpretation. In patients with unstable renal function, e.g. those with acute kidney injury, the eGFR may not accurately reflect actual GFR. Blood BLOOD SPECIMEN / Unknown Venipuncture / Unknown 04/03/2023 10:12 AM EST 04/03/2023 10:12 AM EST Dylan Richardson MD LABORATORY Final Result [facility] [address] [place] [address] from Last 3 Months or Most Recently Relevant to Health Maintenance Insurance 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
--- OUTSIDE RECORDS SUMMARY | 2024-10-26 08:27 | XMS_ITS | Encounter Summary ---
Author Organization [facility] Address [address] [place] [address] Care Team Providers Care Philosophy Faculty Member Name Role Phone Roberth Hdz MD Primary Care Provider + Dylan Richardson MD Unavailable [phone] Courtney Miranda APRN.OFFENSIVE COORDINATOR Unavailable [phone] Bertha Monsalve RN Unavailable [phone] Source Comments In the event this information is protected by the Federal Confidentiality of Alcohol and Drug AbusePatient Records regulations: The Federal rules restrict any use of the information to criminally investigate or prosecute any alcohol or drug abuse patient.[facility] Encounter Details Date Type Department Care Team (Late st Contact Info) Description 10/15/2012 Patient Msg Medical Records [address] [place] [address] Provider, [facility] RE: 12 month labs due post parathyroid surgery Social History Tobacco Use Types Packs/Day Years Used Date Smoking Tobacco: Never Smokeless Tobacco: Never Alcohol Use Standard Drinks/Week Comments Yes 0 (1 standard drink = 0.6 oz pur e alcohol) Rare socially 2 a year Comments No Sex and Gender Information Value Date Recorded Sex Assigned at Female 10/31/2019 9:34 AM EDT Legal Sex Female 8:34 AM EST Gender Identity Female 10/31/2019 9:34 AM EDT Sexual Orientation Straight 10/31/2019 9: 34 AM EDT documented as of this encounter Plan of Treatment Not on file documented as of this encounter Visit Diagnoses Not on filedocumented in this encounter Care Teams Philosophy Faculty Member Relationship Specialty Start Date End Date Roberth Hdz MD [address] [place] [address], [address] [place] [address] PCP - General Internal Medicine 05/08/10 Dylan Richardson MD [address] [place] [address] Physician Hematology/Oncology 11/07/19 Courtney Miranda APRN.OFFENSIVE COORDINATOR [address] [place] [address] Nurse Practitioner Hematology/Oncology 11/07/19 Bertha Monsalve, MANDIE [address] [place] [address] Specialty Safety And Health Manager Hematology/Oncology 11/07/19 03/04/23 documented as of this encounter
--- OUTSIDE RECORDS SUMMARY | 2024-10-26 08:27 | XMS_ITS | Encounter Summary ---
[id number] [address] [place] [address] Care Team Providers Care Machine Tool Technician Instructor Name Role Phone Roberth Hdz MD Primary Care Provider [phone] Encounter Details Date Type Department Care Team (Late st Contact Info) Description 06/10/2023 Orders Only [facility] Internal Medicine/Pediatrics [address] [address] Vesna Merida RMA Routine general medical examination at a health care facility Social History Tobacco Use Types Packs/Day Years Used Date Smoking Tobacco: Never Smokeless Tobacco: Never Alcohol Use Standard Drinks/Week Comments Yes 0 (1 standard drink = 0.6 oz pur e alcohol) rarely Social Connection and Isolat ion Panel [NHANES] Answer Date Recorded In a typical week, how many times do you talk on the phone with family, friends, or neighbors? Once a week 05/27/2022 How often do you get togethe r with friends or relatives? Once a week 05/27/2022 How often do you attend chur ch or church services? More than 4 times per year 05/27/2022 Do you belong to any clubs o r organizations such as gnosticist groups, unions, fraternal or athletic groups, or [...] food, housing, medical care, and heating? Not very hard 06/03/2023 PHQ-2 Answer Date Recorded Total Score 6 05/29/2022 [facility]at ion[facility] Health - Occupational Stress Questionnaire Answer Date [...] medical appointments or from getting medications? No 05/06 In the past 12 months, has l ack of transportation kept you from meetings, work, or from getting things needed for daily living? No 06/03/2023 Housing Instability Answer Date Recorde d Are you worried or concerned that in the next two months you may not have stable housing that you own, rent or stay in as a part of a household? No 06/03/2023 Childcare Answer Date Recorded Do problems getting child ca re make it difficult for you to work or study? No 05/27/2022 Employment Answer Date Recorded Do you need help finding a [facility] career [facility] and/or a training program? No 05/27/2022 Hunger Screening Answer Date Recorded Within the past 12 months we worried whether our food would run out before we got money to buy more. Never True 06/03/2023 Within the past 12 months th e food we bought just didn't last and we didn't have money to get more. Never True 06/03/2023 Purpose - Life Answer Date Recorded I [...] on file Sexual Orientation Not on file documented as of this encounter Plan of Treatment Upcoming Encounters Date Type Department Care Team (Late st Contact Info) Description 09/19/2025 9:00 AM EDT Office Visit Susy Yaakov [facility] - Medical Oncology [address] [place] [address] Audrey Hernandez PA [address] [place] [address] documented as of this encounter Procedures Procedure Name Priority Date/Time Associated Diagnosis Comments HEMOGLOBIN A1C Routine 06/09/2023 Routine general medical examination at a health care facility LIPID PROFILE Routine 06/09/2023 Routine general medical examination at a [facility] documented in this encounter Results * (ABNORMAL) Hemoglobin A1c (06/09/2023) External Hemoglobin A1C 6.5(A) 4.5 - 6.2 % [facility] Blood 06/09/2023 us Roberth Hdz MD LAB BLOOD ORDERABLES Final Re sult [facility] * (ABNORMAL) Lipid panel (06/09/2023) External Cholesterol 164 <=200 [facility] External Cholesterol:Hdl 3.6 [facility] External Hdl Cholesterol 46 40 - 60 [facility] External Ldl (Calc) 87 <=100 [facility] External Triglycerides 157(A) <=150 [facility] External Very Low Lipoprotein 31.4 [facility] Blood 06/09/2023 us Roberth Hdz MD LAB BLOOD ORDERABLES Final Re sult [facility] documented in this encounter Visit Diagnoses Diagnosis Routine general medical examination at a health care facility documented in this encounter Additional Health Concerns Assessment Noted Time PHQ-9 Depression Total Score: 6 05/29/19 23 10:38 AM EST documented as of this encounter Care Teams Machine Tool Technician Instructor Relationship Specialty Start Date End Date Roberth Hdz MD [address] [place] [address], [address] [place] [address] PCP - General Pediatrics 02/02/17 documented as of this encounter
--- OUTSIDE RECORDS SUMMARY | 2024-10-26 08:27 | XMS_ITS | Encounter Summary ---
Author Organization [facility] Address [id number] [address] [place] [address] Care Team Providers Care Fixture Designer Name Role Phone Roberth Hdz MD Primary Care Provider [phone] Encounter Details Date Type Department Care Team (Late st Contact Info) Description 11/12/2022 Orders Only [facility] Internal Medicine/Pediatrics [address] [facility] [address] [place] [address] Vesna Merida RMA Encounter for screening mammogram for malignant neoplasm of breast; Abnormality of right breast on screening mammogram Social History Tobacco Use Types Packs/Day Years [...] often do you attend chur ch or anabaptist services? More than 4 times per year 05/27/2022 Do you belong to any clubs o r organizations such as amish groups, unions, fraternal or athletic groups, or [...] Answer Date Recorded Total Score 6 05/29/2022 [facility] of Occupat ional Health - Occupational Stress [...] 9:00 AM EDT Office Visit Susy Nuno [facility] - Medical Oncology [address] [place] [address] Audrey Hernandez PA [address] [place] [address] documented as of this encounter Procedures Procedure Name Priority Date/Time Associated Diagnosis Comments MAMM DIAGNOSTIC UNILAT RT W CAD Routine 11/05/2022 Abnormality of right breast on screening mammogram H-US BREAST RT COMPLETE Routine 11/05/2022 Abnormality of right breast on screening mammogram MAMM SCREENING BILATERAL W CAD Routine 10/29/2022 Encounter for screening mammogram for malignant neoplasm of breast documented in this encounter Results * Ultrasound breast complete right (11/05/2022) Anatomical Region Laterality Modality Breast Right Ultrasound 11/05/2022 Result [facility] Audrey TOM US ORDERABLES Final Result * Mammography diagnostic unilateral right with CAD (11/05/2022) Anatomical Region Laterality Modality Breast Right Mammography 11/05/2022 Audrey ROMERO IMG MAMMOGRAPHY ORDERABLES Fin al Result * Mammography screening bilateral with CAD (10/29/2022) Anatomical Region Laterality Modality Breast Bilateral Mammography 10/29/2022 Audrey ROMERO IM MAMMOGRAPHY ORDERABLES Fin al Result documented in this encounter Visit Diagnoses Diagnosis Encounter for screening mammogram for malignant neoplasm of breast Abnormality of right breast on screening mammogram documented in this encounter Additional Health Concerns Assessment Noted Time PHQ-9 Depression Total Score: 6 05/29/19 23 10:38 AM EST documented as of this encounter Care Teams Fixture Designer Relationship Specialty Start Date End Date Roberth Hdz MD [address] [place] [address], [address] [place] [address] PCP - General Pediatrics 02/02/17 documented as of this encounter
--- OUTSIDE RECORDS SUMMARY | 2024-10-26 08:27 | XMS_ITS ---
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 Past Treatment and Therapy Plans ONCOLOGY REGIMEN Plan Name Start Date Discontinue Date Treatment Medications Discontinue Reason Plan Provider Cycles BORTEZOMIB 1.3 D1,8,15 DEXAMETHASONE 40 D1,8,15,22 LENALIDOMIDE 25 D1-21 - Q28D 0 05/23/2020 bortezomib ((VELCADE))le nalidomide (REVLIMID) Other Dylan Richardson MD Treatment not started
--- OUTSIDE RECORDS SUMMARY | 2024-10-26 08:27 | XMS_ITS | Patient Health Record ---
Author Organization The [facility] [place] Address [address] [place] [address] Care Team Providers Care Envelope Patternmaker Name Role Phone Roberth Hdz MD Primary Care Provider Unavaila Tristian Pruettorva Unavailable [phone] Results Component Value Reference Range Notes CBC AUTO DIFF (Not yet revie wed by provider) Interpretation: Performing Lab: Notes/Report: [facility] , White Blood Count 7.1 4.0-11.0 10 3/uL Red Blood Count 4.56 4.20-5.40 10 6/uL Hemoglobin 13.5 12.0-16.0 g/dL Hematocrit 42.0 36.0-48.0 % Mean Corpuscular Volume 92.1 81.0-99.0 fL Mean Corpuscular Hemoglobin 29.6 26.7-34.0 pg Mean Corpuscular HGB Conc 32.1 29.9-35.2 g/dL Red Cell Distribution Width 12.9 11.0-15.0 % Platelet Count 232 150-450 10 3/uL Mean Platelet Volume 10.1 9.5-13.5 fL Neutrophils Percent Auto 54.3 43.0-75.0 % Lymphocytes Percent Auto 35.7 20.5-60.0 % Monocytes Percent Auto 6.4 1.7-12.0 % Eosinophils Percent Auto 2.4 0.9-7.0 % Basophils Percent Auto 1.1 0.2-2.0 % Immature Granulocytes Pct Auto 0.1 0.0-0.5 % Neutrophils Absolute Auto 3.8 1.4-6.5 10 3/uL Lymphocytes Absolute Auto 2.5 1.2-3.8 10 3/uL Monocytes Absolute Auto 0.5 0.3-0.8 10 3/uL Eosinophils Absolute Auto 0.2 0.0-0.7 10 3/uL Basophils Absolute Auto 0.1 0.0-0.1 10 3/uL Immature Granulocytes Abs Auto 0.01 0.00-0.03 10 3/uL Performing Lab: see note ML - [facility] LB IMMUNOGLOBULIN E, TOTAL (Not yet reviewed by provider) Interpretation: Performing Lab: Notes/Report: [facility] , Immunoglobulin E, Total 185 6-495 IU/mL Performed at: [facility] Damage Cutter: Benedict Rowe MD, Phone: [phone] [facility] [place], [place] [phone] Performing Lab: see note - [facility] LB CBC AUTO DIFF (Not yet revie wed by provider) Interpretation: Performing Lab: Notes/Report: [facility] , White Blood Count 6.1 4.0-11.0 10 3/uL Red Blood Count 4.29 4.20-5.40 10 6/uL Hemoglobin 13.3 12.0-16.0 g/dL Hematocrit 40.1 36.0-48.0 % Mean Corpuscular Volume 93.5 81.0-99.0 fL Mean Corpuscular Hemoglobin 31.0 26.7-34.0 pg Mean Corpuscular HGB Conc 33.2 29.9-35.2 g/dL Red Cell Distribution Width 13.2 11.0-15.0 % Platelet Count 210 150-450 10 3/uL Mean Platelet Volume 9.9 9.5-13.5 fL Neutrophils Percent Auto 47.6 43.0-75.0 % Lymphocytes Percent Auto 40.1 20.5-60.0 % Monocytes Percent Auto 8.9 1.7-12.0 % Eosinophils Percent Auto 2.1 0.9-7.0 % Basophils Percent Auto 1.0 0.2-2.0 % Immature Granulocytes Pct Auto 0.3 0.0-0.5 % Neutrophils Absolute Auto 2.9 1.4-6.5 10 3/uL Lymphocytes Absolute Auto 2.4 1.2-3.8 10 3/uL Monocytes Absolute Auto 0.5 0.3-0.8 10 3/uL Eosinophils Absolute Auto 0.1 0.0-0.7 10 3/uL Basophils Absolute Auto 0.1 0.0-0.1 10 3/uL Immature Granulocytes Abs Auto 0.02 0.00-0.03 10 3/uL Performing Lab: see note ML - [facility] LB MARCIANO, PE and FLC, Serum (Not yet reviewed by provider) Interpretation: Performing Lab: Notes/Report: [facility] , Immunoglobulin G, Qn, Serum 2171 586-1602 mg/d L Immunoglobulin A, Qn, Serum 63 87-352 mg/dL Immunoglobulin M, Qn, Serum 31 26-217 mg/dL Protein, Total 7.8 6.0-8.5 g/dL Albumin 3.9 2.9-4.4 g/dL Lqeoh-9-Uydzcoka 0.2 0.0-0.4 g/dL Dzzsa-8-Icpscdxo 0.7 0.4-1.0 g/dL Beta Globulin 0.9 0.7-1.3 g/dL Gamma Globulin 2.1 0.4-1.8 g/dL M-Ramu 1.8 Not Observed g/dL Globulin, Total 3.9 2.2-3.9 g/dL A/G Ratio 1.1 0.7-1.7 Immunofixation Result, Serum Comment . light chain specificity. Serum and submitting a new sample for testing or by (CR). If this patient is receiving these therapies, this MARCIANO assay interference can be removed by ordering test calling the lab to add this test to the current sample. Serum or [id number]- Immunofixation, Isatuximab-Specific, (daratumumab) or SARCLISA(R)([facility] ) treatment Immunofixation shows IgG monoclonal protein with kappa can appear as an IgG kappa and mask a complete response Samples from patients receiving DARZALEX(R) PLEASE NOTE: number [id number]- Immunofixation, Daratumumab-Specific, Please note: Comment . Protein electrophoresis scan will follow via computer, mail, or geotechnical operating engineer delivery. Free [place] Lt Chains,S 12.0 3.3-19.4 mg/L Free Lambda Lt Chains,S 6.6 5.7-26.3 mg/L [place]/Lambda Ratio,S 1.82 0.26-1.65 Damage Cutter: Ernst Hammond PhD, Phone: [phone] [address] [place], [place] [id number] Performed at: - [facility] Performing Lab: see note - [facility] LB PROF 14(COMP METB) (Not yet reviewed by provider) Interpretation: Performing Lab: Notes/Report: [facility] , Sodium 139 136-145 mmol/L Potassium 4.3 3.5-5.1 mmol/L Chloride 104 98-107 mmol/L Carbon Dioxide 27.8 21.0-32.0 mmol/L Anion Gap 11.5 Glucose 106 74-106 mg/dL Blood Urea Nitrogen 17.0 7.0-18.0 mg/dL Creatinine 0.99 0.55-1.02 mg/dL Estimated GFR ( Deja >60 >=60 mL/min/1.73m 2 Estimated GFR (Non- Brandy 57 >=60 mL/min/1.73m 2 BUN Creatinine Ratio 17.2 Calcium 8.5 8.5-10.1 mg/dL Bilirubin Total 0.4 0.2-1.0 mg/dL Aspartate Amino Transferase 22 15-37 U/L Alanine Aminotransferase 36 14-59 U/L Alkaline Phosphatase 71 46-116 U/L Total Protein 8.4 6.4-8.2 g/dL Albumin Level 3.4 3.4-5.0 g/dL Globulin 5.0 Albumin Globulin Ratio 0.7 Performing Lab: see note ML - [facility] LB LDH (Not yet reviewed by pro vider) Interpretation: Performing Lab: Notes/Report: [facility] , Lactate Dehydrogenase 140 81-234 U/L Performing Lab: see note ML - [facility] LB CBC AUTO DIFF (Not yet revie wed by provider) Interpretation: Performing Lab: Notes/Report: [facility] , White Blood Count 7.5 4.0-11.0 10 3/uL Red Blood Count 4.46 4.20-5.40 10 6/uL Hemoglobin 13.5 12.0-16.0 g/dL Hematocrit 42.1 36.0-48.0 % Mean Corpuscular Volume 94.4 81.0-99.0 fL Mean Corpuscular Hemoglobin 30.3 26.7-34.0 pg Mean Corpuscular HGB Conc 32.1 29.9-35.2 g/dL Red Cell Distribution Width 13.1 11.0-15.0 % Platelet Count 233 150-450 10 3/uL Mean Platelet Volume 10.3 9.5-13.5 fL Neutrophils Percent Auto 50.0 43.0-75.0 % Lymphocytes Percent Auto 37.6 20.5-60.0 % Monocytes Percent Auto 7.0 1.7-12.0 % Eosinophils Percent Auto 3.9 0.9-7.0 % Basophils Percent Auto 1.2 0.2-2.0 % Immature Granulocytes Pct Auto 0.3 0.0-0.5 % Neutrophils Absolute Auto 3.8 1.4-6.5 10 3/uL Lymphocytes Absolute Auto 2.8 1.2-3.8 10 3/uL Monocytes Absolute Auto 0.5 0.3-0.8 10 3/uL Eosinophils Absolute Auto 0.3 0.0-0.7 10 3/uL Basophils Absolute Auto 0.1 0.0-0.1 10 3/uL Immature Granulocytes Abs Auto 0.02 0.00-0.03 10 3/uL Performing Lab: see note ML - [facility] LB MARCIANO, PE and FLC, Serum (Not yet reviewed by provider) Interpretation: Performing Lab: Notes/Report: [facility] , Immunoglobulin G, Qn, Serum 2515 586-1602 mg/d L Immunoglobulin A, Qn, Serum 59 87-352 mg/dL Immunoglobulin M, Qn, Serum 28 26-217 mg/dL Protein, Total 8.3 6.0-8.5 g/dL Albumin 3.8 2.9-4.4 g/dL Rcqjp-5-Bnttiuds 0.3 0.0-0.4 g/dL Vgoej-2-Kgbzqjyq 0.9 0.4-1.0 g/dL Beta Globulin 1.1 0.7-1.3 g/dL Gamma Globulin 2.3 0.4-1.8 g/dL M-Ramu 1.9 Not Observed g/dL Globulin, Total 4.5 2.2-3.9 g/dL A/G Ratio 0.9 0.7-1.7 Immunofixation Result, Serum Comment . MARCIANO assay interference can be removed by ordering test (daratumumab) or SARCLISA(R)(isatuximab-[facility] ) treatment number [id number] Immunofixation, Daratumumab-Specific, (CR). If this patient is receiving these therapies, this calling the lab to add this test to the current sample. Serum or [id number]- Immunofixation, Isatuximab-Specific, Immunofixation shows IgG monoclonal protein with kappa Samples from patients receiving DARZALEX(R) Serum and submitting a new sample for testing or by light chain specificity. can appear as an IgG kappa and mask a complete response PLEASE NOTE: Please note: Comment . mail, or geotechnical operating engineer delivery. Protein electrophoresis scan will follow via computer, Free [place] Lt Chains,S 10.7 3.3-19.4 mg/L Free Lambda Lt Chains,S 6.6 5.7-26.3 mg/L [place]/Lambda Ratio,S 1.62 0.26-1.65 Damage Cutter: Ernst Hammond PhD, Phone: [phone] Performed at: - [facility] [address] [id number] Performing Lab: see note - [facility] LB PROF 14(COMP METB) (Not yet reviewed by provider) Interpretation: Performing Lab: Notes/Report: [facility] , Sodium 138 136-145 mmol/L Potassium 3.9 3.5-5.1 mmol/L Chloride 99 98-107 mmol/L Carbon Dioxide 29.5 21.0-32.0 mmol/L Anion Gap 13.4 Glucose 120 74-106 mg/dL Blood Urea Nitrogen 13.0 7.0-18.0 mg/dL Creatinine 0.92 0.55-1.02 mg/dL Estimated GFR ( Deja >60 >=60 Estimated GFR (Non- Brandy >60 >=60 BUN Creatinine Ratio 14.1 Calcium 8.9 8.5-10.1 mg/dL Bilirubin Total 0.5 0.2-1.0 mg/dL Aspartate Amino Transferase 23 15-37 U/L Alanine Aminotransferase 37 14-59 U/L Alkaline Phosphatase 73 46-116 U/L Total Protein 8.9 6.4-8.2 g/dL Albumin Level 3.7 3.4-5.0 g/dL Globulin 5.2 Albumin Globulin Ratio 0.7 Performing Lab: see note ML - [facility] LB LDH (Not yet reviewed by pro vider) Interpretation: Performing Lab: Notes/Report: [facility] , Lactate Dehydrogenase 164 81-234 U/L Performing Lab: see note ML - [facility] LB IMMUNOGLOBULIN E, TOTAL (Not yet reviewed by provider) Interpretation: Performing Lab: Notes/Report: [facility] , Immunoglobulin E, Total 37 6-495 IU/mL [address] [place], [place] [id number] Damage Cutter: Benedict Rowe MD, Phone: [phone] Performed at: - [facility] Performing Lab: see note LC - [facility] LB MARCIANO, PE and FLC, Serum (Not yet reviewed by provider) Interpretation: Performing Lab: Notes/Report: [facility] , Immunoglobulin G, Qn, Serum 2373 586-1602 mg/d L Immunoglobulin A, Qn, Serum 54 87-352 mg/dL Immunoglobulin M, Qn, Serum 30 26-217 mg/dL Protein, Total 7.9 6.0-8.5 g/dL Albumin 4.0 2.9-4.4 g/dL Iicey-9-Bgbsvjpx 0.2 0.0-0.4 g/dL Yalqm-6-Igiuophe 0.7 0.4-1.0 g/dL Beta Globulin 0.9 0.7-1.3 g/dL Gamma Globulin 2.2 0.4-1.8 g/dL M-Ramu 1.7 Not Observed g/dL Globulin, Total 3.9 2.2-3.9 g/dL A/G Ratio 1.1 0.7-1.7 Immunofixation Result, Serum Comment . Serum or [id number] Immunofixation, Isatuximab-Specific, MARCIANO assay interference can be removed by ordering test light chain specificity. (daratumumab) or SARCLISA(R)(isatuximab-irfc ) treatment (CR). If this patient is receiving these therapies, this calling the lab to add this test to the current sample. Immunofixation shows IgG monoclonal protein with kappa Samples from patients receiving DARZALEX(R) can appear as an IgG kappa and mask a complete response Serum and submitting a new sample for testing or by number [id number]- Immunofixation, Daratumumab-Specific, PLEASE NOTE: Please note: Comment . mail, or geotechnical operating engineer delivery. Protein electrophoresis scan will follow via computer, Free [place] Lt Chains,S 10.5 3.3-19.4 mg/L Free Lambda Lt Chains,S 4.4 5.7-26.3 mg/L [place]/Lambda Ratio,S 2.39 0.26-1.65 Damage Cutter: Ernst Hammond PhD, Phone: [phone] Performed at: [facility] [address] [id number] Performing Lab: see note - [facility] LB PROF 14(COMP METB) (Not yet reviewed by provider) Interpretation: Performing Lab: Notes/Report: [facility] , Sodium 139 136-145 mmol/L Potassium 4.1 3.5-5.1 mmol/L Chloride 100 98-107 mmol/L Carbon Dioxide 31.4 21.0-32.0 mmol/L Anion Gap 11.7 Glucose 99 74-106 mg/dL Blood Urea Nitrogen 16.0 7.0-18.0 mg/dL Creatinine 0.95 0.55-1.02 mg/dL Estimated GFR ( Deja >60 >=60 mL/min/1.73m 2 Estimated GFR (Non- Brandy >60 >=60 mL/min/1.73m 2 BUN Creatinine Ratio 16.8 Calcium 9.0 8.5-10.1 mg/dL Bilirubin Total 0.3 0.2-1.0 mg/dL Aspartate Amino Transferase 23 15-37 U/L Alanine Aminotransferase 33 14-59 U/L Alkaline Phosphatase 78 46-116 U/L Total Protein 8.3 6.4-8.2 g/dL Albumin Level 3.5 3.4-5.0 g/dL Globulin 4.8 Albumin Globulin Ratio 0.7 Performing Lab: see note - [facility] LB LDH (Not yet reviewed by pro vider) Interpretation: Performing Lab: Notes/Report: [facility] , Lactate Dehydrogenase 153 81-234 U/L Performing Lab: see note - [facility] LB IMMUNOGLOBULIN E, TOTAL (Not yet reviewed by provider) Interpretation: Performing Lab: Notes/Report: [facility] , Immunoglobulin E, Total 39 6-495 IU/mL Damage Cutter: Benedict Rowe MD, Phone: [phone] Performed at: [facility] [address] [id number] Performing Lab: see note LC - [facility] LB Reason For Referral No Information Encounters Encounter Location Date Provider Diagnosis [facility] Oncology [address] [place] [address] [facility]/08/[address] [facility] [address] [place] [address] 09/20/[address] [facility] [address] [place] [address] 10/27/2023 Velia Low Plan Of Treatment Pending Test Test Name Order Date CBC AUTO DIFF 10/27/2023 CBC AUTO DIFF 02/29/2024 CBC AUTO DIFF 09/06/2024 IMMUNOGLOBULIN E, TOTAL 10/27/2023 IMMUNOGLOBULIN E, TOTAL 02/29/2024 IMMUNOGLOBULIN E, TOTAL 09/06/2024 LDH 09/06/2024 LDH 02/29/2024 LDH 10/27/2023 PROF 14(COMP METB) 10/27/2023 PROF 14(COMP METB) 02/29/2024 PROF 14(COMP METB) 09/06/2024 MARCIANO, PE and FLC, Serum 09/06/2024 MARCIANO, PE and FLC, Serum 02/29/2024 MARCIANO, PE and FLC, Serum 10/27/2023 Next Appt Details Provider Name:Velia Low , 05/16/2025 11:00:00 AM, [address] [place], [address], Insurance Providers Payer Name Payer Address Payer Phone Subscriber Number Group Number Insured Name Patient Relationship to Insured Coverage Start Date Coverage End Date [employer] [place] [address] [place], [place] [id number] Vidhya Richtre Self - patient is the insured 5 5 BCBS OUT OF STATE [address] [place] [address] [id number] Vidhya Richter Self - patient is the insured
--- OUTSIDE RECORDS SUMMARY | 2024-10-26 08:27 | XMS_ITS | Encounter Summary ---
Author Organization [id number] [address] [place] [address] Care Team Providers Care Reliability Manager Name Role Phone Roberth Hdz MD Primary Care Provider [phone] Encounter Details Date Type Department Care Team (Late st Contact Info) Description 10/27/2023 Orders Only [facility]/P[facility] [address] [facility] [address] [place] [address] Vesna Merida RMA Encounter for screening mammogram for malignant neoplasm of breast Social History Tobacco Use Types Packs/Day Years [...] often do you attend chur ch or druze services? More than 4 times per year 05/27/2022 Do you belong to any clubs o r organizations such as sabianism groups, unions, fraternal or athletic groups, or [...] Answer Date Recorded Total Score 6 05/29/2022 [facility] - [...] Recorded Do you need help finding a [facility] career center and/or a training program? No [...] 9:00 AM EDT Office Visit Susy Yaakov [facility] - Medical Oncology [address] [place] [id number] Audrey Hernandez PA [address] [place] [address] documented as of this encounter Procedures Procedure Name Priority Date/Time Associated Diagnosis Comments MAMM SCREENING BILATERAL W CAD Routine 10/26/2023 Encounter for screening mammogram for malignant neoplasm of breast documented in this encounter Results * Mammography screening bilateral with CAD (10/26/2023) Anatomical Region Laterality Modality Breast Bilateral Mammography 10/26/2023 Audrey ROMERO IMG MAMMOGRAPHY ORDERABLES Fin al Result documented in this encounter Visit Diagnoses Diagnosis Encounter for screening mammogram for malignant neoplasm of breast documented in this encounter Additional Health Concerns Assessment Noted Time PHQ-9 Depression Total Score: 6 05/29/19 23 10:38 AM EST documented as of this encounter Care Teams Reliability Manager Relationship Specialty Start Date End Date Roberth Hdz MD [address] [place] [address], [address] [place] [address] PCP - General Pediatrics 02/02/17 documented as of this encounter
--- OUTSIDE RECORDS SUMMARY | 2024-10-26 08:27 | XMS_ITS | Encounter Summary ---
Author Organization [facility] Address [id number] [address] [place] [address] Care Team Providers Care Automotive Fuel Systems Converter Name Role Phone Roberth Hdz MD Primary Care Provider [phone] Reason for Visit * Reason Comments Med Refill Encounter Details Date Type Department Care Team (Late st Contact Info) Description 12/02/2023 Refill [facility] Internal Medicine/Pediatric[facility] [address] [place] [address] [address] [place] [address] Roberth Hdz MD [address] [place] [address], [address] [place] [address] Gastroesophageal reflux disease without esophagitis Social History Tobacco Use Types Packs/Day Years [...] often do you attend chur ch or gnosticism services? More than 4 times per year 05/27/2022 Do you belong to any clubs o r organizations such as anabaptist groups, unions, fraternal or athletic groups, or [...] Answer Date Recorded Total Score 6 05/29/2022 [facility] - Occupational Stress [...] Recorded Do you need help finding a [facility] and/or a training program? No [...] on file documented as of this encounter Miscellaneous Notes * Telephone Encounter - Maryse Lundberg CMA - 12/02/2023 8:04 AM EDT No longer on this medication documented in this encounter Plan of Treatment Upcoming Encounters Date Type Department Care Team (Late st Contact Info) Description 09/19/2025 9:00 AM EDT Office Visit Susy L [facility] - Medical Oncology [address] [place] [phone] Audrey Hernandez PA [address] [place] [address] documented as of this encounter Visit Diagnoses Diagnosis Gastroesophageal reflux disease without esophagitis Esophageal reflux documented in this encounter Additional Health Concerns Assessment Noted Time PHQ-9 Depression Total Score: 6 05/29/19 23 10:38 AM EST documented as of this encounter Care Teams Automotive Fuel Systems Converter Relationship Specialty Start Date End Date Roberth Hdz MD [address] [place] [address], [address] [place] [address] PCP - General Pediatrics 02/02/17 documented as of this encounter
--- OUTSIDE RECORDS SUMMARY | 2024-10-26 08:28 | XMS_ITS | Clinical Summary ---
Author Organization [id number] [address] [place] [address] Care Team Providers Care Psychotherapist Social Worker Name Role Phone Roberth Hdz MD Primary Care Provider [phone] Allergies No known active allergies Medications calcium carbonate-vitamin D3 (OSCAL 500 + D) 500 mg(1,250mg) -200 units per tablet Take 1 tablet by mouth in the morning and 1 tablet in the evening. Take with meals. Active ascorbic acid, vitamin C, (VITAMIN C) 1000 mg tablet Take 1 tablet (1,000 mg total) by mouth in the morning. Active omega-3 fatty acids-fish oil 300-1,000 mg capsule Take 2 capsules (2 g total) by mouth in the morning. Active b complex vitamins capsule Take 1 capsule by mouth in the morning. Active psyllium (METAMUCIL) powder Take 1 packet by mouth in the morning and 1 packet at noon and 1 packet before bedtime. Takes every morning. Active olopatadine (PATANOL) 0.1 % ophthalmic solutionIndication s:Allergic conjunctivitis of both eyes Administer 1 drop to both eyes in the morning and 1 drop before bedtime. 5 mL 1 4 Active valACYclovir (VALTREX) 1000 mg tablet Take 2 tablets (2,000 mg total) by mouth in the morning and 2 tablets (2,000 mg total) before bedtime. 4 tablet 4 Active UNABLE TO FIND Inject 37-40 Units under the skin every 7 days. Med Name: Semaglutide-Le vocarnitine 2.65 mg Active losartan (COZAAR) 50 mg tabletIndications: Primary hypertension Take 1 tablet (50 mg total) by mouth in the morning. 90 tablet 3 5 Active atorvastatin (LIPITOR) 20 mg tablet Take 1 tablet (20 mg total) by mouth in the morning. 90 tablet 3 5 Active amLODIPine (NORVASC) 2.5 mg tabletIndications: Primary hypertension TAKE 1 TABLET IN THE MORNING 90 tablet 3 5 Active pantoprazole (PROTONIX) 40 mg EC tablet Take 1 tablet (40 mg total) by mouth in the morning. 90 tablet 3 5 Active Active Problems Problem Noted Date Diagnosed Date Environmental and seasonal allergies 12/14/2022 High cholesterol Smoldering myeloma Hypertension Encounters Date Type Department Care Team Description 09/20/2024 9:00 AM EDT Office Visit Susy Nuno [facility] - Medical Oncology [address] [place] [phone] Audrey Hernandez PA Women's annual routine gynecological examination (Primary Dx); Encounter for screening mammogram for malignant neoplasm of breast 09/19/2024 Travel 07/26/2024 Refill [facility] [address] [facility] [address] [place] [id number] Vesna Merida RMA from Last 3 Months Immunizations Immunization Administration Dates Next Due COVID-19, mRNA, LNP-S, PF, 1 00mcg/0.5mL Dose 08/17/2020,07/20/2020 Influenza, Unspecified 02/11/2021,01/19/2020, Tdap 08/03/2015 Zoster Live 12/19/2015 Family History Medical History Relation Name Comments Heart disease Father Nury Ovarian cancer Mother Juana Relation Name Status Comments Father Nury Mother Juana Social History Tobacco Use Types Packs/Day Years Used Date Smoking Tobacco: Never Smokeless Tobacco: Never Tobacco Cessation:Counseling Given: Not Answered Alcohol Use Standard Drinks/Week Comments Yes 0 [...] often do you attend chur ch or evangelical services? More than 4 times per year 05/27/2022 Do you belong to any clubs o r organizations such as jainism groups, unions, fraternal or athletic groups, or [...] 06/03/2023 PHQ-2 Answer Date Recorded Total Score 0 06/07/2024 [facility] [place] of Occupat ional Health - Occupational Stress [...] Recorded Do you need help finding a [facility] career center and/or a training program? [...] Sign Reading Time Taken Comments Blood Pressure 152/97 09/20/2024 9:06 AM EDT Pulse 72 09/20/2024 9:06 AM EDT Temperature 36.8 C (98.3 F) 09/20/2024 9:06 AM EDT Respiratory Rate 16 09/20/2024 9:06 AM EDT Oxygen Saturation 98% 09/20/2024 9:06 AM EDT Inhaled Oxygen Concentration - - Weight 91.3 kg (201 lb 3.2 oz) 09/20/2024 9:06 A M EDT Height 158.1 cm (5' 2.24 ) 09/20/2024 9:06 AM ED T Body Mass Index 36.51 09/20/2024 9:06 AM EDT Plan of Treatment Upcoming Encounters Date Type Department Care Team (Late st Contact Info) Description 09/19/2025 9:00 AM EDT Office Visit Susy Nuno [facility] - Medical Oncology [address] [place] [address] Audrey Hernandez PA [address] [place] [address] Health Maintenance Due Date Last Done Comments Adult BMI Follow Up Plan 02/02/1982 Zoster (Shingles) Vaccine (1 of 2) 02/13/2016 12/19/2015 COVID-19 Vaccine (2023-2 5 season) 2024 04/04/2021, 08/17/2020, 07/20/2020 Mammogram 10/25/2024 10/26/2023, 07/0 09/2022, 10/29/2022, Additional history exists Influenza Vaccine 01/02/2025 02/11/2021, , 06/25/2009 Depression Screening 06/07/2025 06/07/2024 DTaP,Tdap and Td Vaccines (2 - Td or Tdap) 08/02/2025 08/03/2015 Adult BMI Screening 09/20/2025 09/20/2024 Tobacco Screening 09/20/2025 09/20/2024 Colonoscopy 07/26/2028 07/26/2018, 07/03, 01/22/2015 Pap Smear Discontinued 08/10/2013 Medical Devices Not on file Procedures Procedure Name Priority Date/Time Associated Diagnosis Comments MAMM SCREENING BILATERAL W CAD Routine 10/26/2023 Encounter for screening mammogram for malignant neoplasm of breast PROVATION COLONOSCOPY Routine 07/26/2018 6:51 AM EDT HIGH RISK HPV W/MICHELLE Routine 08/10/2013 7:00 AM EDT from Last 3 Months or Most Recently Relevant to Health Maintenance Results * Mammography screening bilateral with CAD (10/26/2023) Anatomical Region Laterality Modality Breast Bilateral Mammography 10/26/2023 Audrey ROMERO IMRocky MAMMOGRAPHY ORDERABLES Fin al Result * ES colonoscopy imaging (07/26/2018 6:51 AM EDT) Narrative SYSTEMGENERATED, DOCUMENTATION - 07/26/2018 6:51 AM EDT This order has been auto-finalized for image and report archival. *See procedures tab in Epic or report included with PACS images for full interpretation.* us Roberto Levin DO IMG OR IMG ORDERABLES Final Result * High risk HPV w/michelle (08/10/2013 7:00 AM EDT) Hpv specimen type ThinPrep 08/12/2013 1:43 PM EDT [facility] Hpv 16 Negative Negative 08/15/2013 2:01 PM EDT [facility] Hpv 18 Negative Negative 08/15/2013 2:01 PM EDT [facility] Other high risk hpv Negative Negative 08/15/2013 2:01 PM EDT [facility] Comment: HPV types 31,33,35,39,45,52,56,58,59,66 and 68 DNA were undetectable. 08/10/2013 7:00 AM EDT 08/12/2013 1:43 PM EDT us Luis Armando Kumar MD LAB BLOOD ORDERABLES Final Res ult [facility] from Last 3 Months or Most Recently Relevant to Health Maintenance Insurance Care Teams Psychotherapist Social Worker Relationship Specialty Start Date End Date Roberth Hdz MD [address] [place] [address], [address] [place] [address] PCP - General Pediatrics 02/02/17
--- OUTSIDE RECORDS SUMMARY | 2024-10-26 08:28 | XMS_ITS | Encounter Summary ---
Author Organization [facility] Address [address] [place] [address] Care Team Providers Care Director Of Procurement Name Role Phone Roberth Hdz MD Primary Care Provider + Dylan Richardson MD Unavailable [phone] Courtney Miranda APRN.BABY REGISTRY SALES CONSULTANT Unavailable [phone] Bertha Monsalve RN Unavailable [phone] Source Comments In the event this information is protected by the Federal Confidentiality of Alcohol and Drug AbusePatient Records regulations: The Federal rules restrict any use of the information to criminally investigate or prosecute any alcohol or drug abuse patient.[facility] Encounter Details Date Type Department Care Team (Late st Contact Info) Description 07/30/2012 Patient Msg Medical Records [address] [place] [address] Provider, Ccf RE:6 month labs due after parathyroid surgery Social History Tobacco Use Types [...] on filedocumented in this encounter Care Teams Director Of Procurement Relationship Specialty Start Date End Date Roberth Hdz MD [address] [place] [address], [address] [place] [address] PCP - General Internal Medicine 05/08/10 Dylan Richardson MD [address] [place] [address] Physician Hematology/Oncology 11/07/19 Courtney Miranda APRN.BABY REGISTRY SALES CONSULTANT [address] [facility] [place] [address] Nurse Practitioner Hematology/Oncology 11/07/19 Bertha Monsalve, MANDIE [address] [place] [address] Specialty Rhit Hematology/Oncology 11/07/19 03/04/23 documented as of this encounter
--- OUTSIDE RECORDS SUMMARY | 2024-10-26 08:28 | XMS_ITS | Encounter Summary ---
Author Organization [facility] Address [address] [place] [address] Care Team Providers Care Set O Type Operator Name Role Phone Roberth Hdz MD Primary Care Provider + Dylan Richardson MD Unavailable [phone] Courtney Miranda APRN.FEED ADVISER Unavailable [phone] Bertha Monsalve RN Unavailable [phone] Source Comments In the event this information is protected by the Federal Confidentiality of Alcohol and Drug AbusePatient Records regulations: The Federal rules restrict any use of the information to criminally investigate or prosecute any alcohol or drug abuse patient.[facility] Encounter Details Date Type Department Care Team (Late st Contact Info) Description 08/30/2012 Patient Msg Medical Records [address] [place] [address] Provider, Ccf Lab work Social History Tobacco Use Types Packs/Day Years [...] on filedocumented in this encounter Care Teams Set O Type Operator Relationship Specialty Start Date End Date Roberth Hdz MD [address] [place] [address], [address] [place], [place] [id number] PCP - General Internal Medicine 05/08/10 Dylan Richardson MD [address] [facility] [place] [address] Physician Hematology/Oncology 11/07/19 Courtney Miranda APRN.CNP [address] [place] [address] Nurse Practitioner Hematology/Oncology 11/07/19 Bertha Monsalve, MANDIE [address] [place] [address] Specialty Rug Sizer Hematology/Oncology 11/07/19 03/04/23 documented as of this encounter
== END 2024-10-26 08:25 | disposition home or self-care (01) ==
LOC: MAMMO 08:25
PROVIDERS: PCP Internal Medicine; Visit Provider Internal Medicine
DX: Z12.31 Encounter for screening mammogram for malignant neoplasm of breast (principal); Z80.41 Family history of malignant neoplasm of ovary
CPT/HCPCS: 77063; 77067